=== PATIENT | male | born 1955 | race Caucasian/White ===

== ENCOUNTER 2017-07-14 18:00 | Day surgery (SDC) | payer MEDICAID ==
[2017-07-14] MEDS ORDERED: Sodium Chloride 0.9% 10 ML Syringe FLUSH PRN (18:44)
[2017-07-14] MEDS ORDERED: Lactated Ringers 1,000 ML IV SCH (18:45)
[2017-07-14] MEDS ORDERED: LORazepam 2 MG/ML MDV IVPUSH ONE (18:45)
[2017-07-14] MEDS ORDERED: Glucagon,Human Recombinant 1 MG Vial IVPUSH ONE (18:45)
--- NOTE | 2017-07-14 18:47 | EDM.PDOC ---
ED HPI GENERAL MEDICAL PROBLEM - General Chief Complaint: General Stated Complaint: FOOD STUCK IN ESOPHAGUS Time Seen by Provider: 07/14/17 18:37 Source of Information: Reports: Patient History Limitations: Reports: No Limitations - History of Present Illness INITIAL COMMENTS - FREE TEXT/NARRATIVE: The patient presents because he may have food stuck in his esophagus. 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 He ate some cold cereal and went to bed. This morning he woke up and tried to eat and it came right back up. He cannot eat anything. Small sips of water seam to stay down but anything more comes right back up. This has never happened before. He has no chest pain. He feels pressure in the epigastric region when he tries to eat. He has no fever, chills or cough. He has no diarrhea or urinary complaints. Onset: Sudden Duration: Hour(s): (This morning when he woke up) Location: Reports: Abdomen (Epigastric) Quality: Reports: Pressure Severity: Mild Improves with: Reports: Other (When he vomits to food) Worsens with: Reports: None Context: Reports: Other (He woke up with it) Middle Abdominal Pain Score (Numeric/FACES): 2 - Related Data Allergies Allergy/AdvReac Type Severity Reaction Status Date / Time No Known Allergies Allergy Verified 07/14/17 18:37 Home Meds: Home Meds Aspirin 81 mg PO DAILY #30 tab.chew 10/17/15 [Rx] Past Medical History - Past Health History Medical/Surgical History: Denies Medical/Surgical History Other Musculoskeletal History: Left foot fracture Neurological History: Reports: CVA Other Dermatologic History: skin Ca type unknown. Surgically removed - Past Surgical History Other Oncologic Surgeries/Procedures: surgical removed of skin Ca. Social & Family History - Family History Family Medical History: Noncontributory - Tobacco Use Smoking Status *Q: Never Smoker Second Hand Smoke Exposure: No - Recreational Drug Use Recreational Drug Use: No ED ROS GENERAL - Review of Systems Review Of Systems: See Below Constitutional: Reports: No Symptoms HEENT: Reports: No Symptoms Respiratory: Reports: No Symptoms Cardiovascular: Reports: No Symptoms Endocrine: Reports: No Symptoms GI/Abdominal: Reports: Abdominal Pain (Pressure in the epigastric region when he tries to eat or drink) : Reports: No Symptoms Musculoskeletal: Reports: No Symptoms ED EXAM, GENERAL - Physical Exam Exam: See Below Exam Limited By: No Limitations General Appearance: Alert, No Apparent Distress Ears: Normal External Exam Nose: Normal Inspection Head: Atraumatic Neck: Normal Inspection Respiratory/Chest: No Respiratory Distress, Lungs Clear, Normal Breath Sounds Cardiovascular: Regular Rate, Rhythm, No Edema, No Murmur GI/Abdominal: Soft, Non-Tender, No Organomegaly, No Mass Back Exam: Normal Inspection Extremities: Normal Inspection Neurological: Alert, Oriented, No Motor/Sensory Deficits Course - Vital Signs Last Recorded V/S: Last Vital Signs Temp 98.0 F 07/14/17 18:34 Pulse 57 L 07/14/17 18:34 Resp 18 07/14/17 18:34 BP 143/81 H 07/14/17 18:34 Pulse Ox 95 07/14/17 18:34 - Orders/Labs/Meds Orders: Active Orders 24 hr Category Date Time Status Peripheral IV Care [RC] . DIRECTED Care 07/14/17 18:45 Active Lactated Ringers [Ringers, Lactated] 1,000 ml Med 07/14/17 18:45 Active IV ASDIRECTED Sodium Chloride 0.9% [Saline Flush] Med 07/14/17 18:44 Active 10 ml FLUSH ASDIRECTED PRN Peripheral IV Insertion Adult [OM.PC] Routine Oth 07/14/17 18:44 Ordered Medication Orders Lactated Ringer's (Ringers, Lactated) 1,000 mls @ 150 mls/hr IV ASDIRECTED BRITTANY Last Admin: 07/14/17 19:11 Dose: 150 mls/hr Sodium Chloride (Saline Flush) 10 ml FLUSH ASDIRECTED PRN PRN Reason: Keep Vein Open Last Admin: 07/14/17 19:13 Dose: 10 ml Meds: Medications Generic Name Dose Route Start Last Admin Trade Name Freq PRN Reason Stop Dose Admin Lactated Ringer's 1,000 mls @ 150 mls/hr 07/14/17 18:45 07/14/17 19:11 Ringers, Lactated IV 150 mls/hr ASDIRECTED BRITTANY Administration Sodium Chloride 10 ml 07/14/17 18:44 07/14/17 19:13 Saline Flush FLUSH 10 ml ASDIRECTED PRN Administration Keep Vein Open Discontinued Medications Generic Name Dose Route Start Last Admin Trade Name Freq PRN Reason Stop Dose Admin Glucagon 1 mg 08/19/17 18:45 07/14/17 19:11 Glucagen IVPUSH 07/14/17 18:46 1 mg ONETIME ONE Administration Lorazepam 1 mg 07/14/17 18:45 07/14/17 19:09 Ativan IVPUSH 07/14/17 18:46 1 mg ONETIME ONE Administration - Re-Assessments/Exams Free Text/Narrative Re-Assessment/Exam: 07/14/17 18:52 I ordered an IV LR at 125mL/hr, glucagon 1mg IV, and ativan 1mg IV. 07/14/17 20:00 That did not help. He cannot swallow any water. I called Dr Daniels and he asked if the patient had reflux. I went back and asked him and he says at times he does have some heart burn and it was worse lately. He will come see him and do an EGD. Departure - Departure Time of Disposition: 20:05 Disposition: DC/Tfer to [facility] Condition: Good Clinical Impression: Esophageal stricture - Discharge Information Forms: ED Department Discharge - My Orders Last 24 Hours: My Active Orders 07/14/17 18:44 Sodium Chloride 0.9% [Saline Flush] 10 ml FLUSH ASDIRECTED PRN Peripheral IV Insertion Adult [OM.PC] Routine 07/14/17 18:45 Peripheral IV Care [RC] . DIRECTED Lactated Ringers [Ringers, Lactated] 1,000 ml IV ASDIRECTED - Assessment/Plan Last 24 Hours: My Active Orders 07/14/17 18:44 Sodium Chloride 0.9% [Saline Flush] 10 ml FLUSH ASDIRECTED PRN Peripheral IV Insertion Adult [OM.PC] Routine 07/14/17 18:45 Peripheral IV Care [RC] . DIRECTED Lactated Ringers [Ringers, Lactated] 1,000 ml IV ASDIRECTED
--- NOTE | 2017-07-14 20:10 | PCM.PREANE ---
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.) Other: Reports: None - Physical Assessment NPO Status Date: 07/14/17 NPO Status Time: 05:30 Pulse: 57 O2 Sat by Pulse Oximetry: 95 Respiratory Rate: 18 Blood Pressure: 143/81 Temperature: 36.7 C Vital Signs: Last Vital Signs Temp 36.7 C 07/14/17 18:34 Pulse 57 L 07/14/17 18:34 Resp 18 07/14/17 18:34 BP 143/81 H 07/14/17 18:34 Pulse Ox 95 07/14/17 18:34 Height: 1.92 m Weight: 111.13 kg ASA Class: 2E Mental Status: Alert & Oriented x3 Airway Class: Mallampati = 2 Dentition: Reports: Normal Dentition, Caries Thyro-Mental Finger Breadths: 3 Mouth Opening Finger Breadths: 3 ROM/Head Extension: Full Lungs: Clear to Auscultation, Normal Respiratory Effort Cardiovascular: Regular Rate, Regular Rhythm, No Murmurs - Allergies Allergies/Adverse Reactions: Allergies Allergy/AdvReac Type Severity Reaction Status Date / Time No Known Allergies Allergy Verified 07/14/17 18:37 - Anesthesia Plan Pre-Op Medication Ordered: None - Acknowledgements Anesthesia Type Planned: General Anesthesia Pt an Appropriate Candidate for the Planned Anesthesia: Yes Alternatives and Risks of Anesthesia Discussed w Pt/Guardian: Yes Pt/Guardian Understands and Agrees with Anesthesia Plan: Yes PreAnesthesia Questionnaire - Past Health History Medical/Surgical History: Denies Medical/Surgical History Other Musculoskeletal History: Left foot fracture Neurological History: Reports: CVA Other Dermatologic History: skin Ca type unknown. Surgically removed - Past Surgical History Other Oncologic Surgeries/Procedures: surgical removed of skin Ca. - SUBSTANCE USE Smoking Status *Q: Never Smoker Tobacco Use Within Last Twelve Months: No Second Hand Smoke Exposure: No Recreational Drug Use History: No - HOME MEDS Home Medications: Home Meds Aspirin 81 mg PO DAILY #30 tab.chew 10/17/15 [Rx] - CURRENT (IN HOUSE) MEDS Current Meds: Current Medications Lactated Ringer's (Ringers, Lactated) 1,000 mls @ 150 mls/hr IV ASDIRECTED BRITTANY Last Admin: 07/14/17 19:11 Dose: 150 mls/hr Sodium Chloride (Saline Flush) 10 ml FLUSH ASDIRECTED PRN PRN Reason: Keep Vein Open Last Admin: 07/14/17 19:13 Dose: 10 ml Discontinued Medications Glucagon (Glucagen) 1 mg IVPUSH ONETIME ONE Stop: 07/14/17 18:46 Last Admin: 07/14/17 19:11 Dose: 1 mg Lorazepam (Ativan) 1 mg IVPUSH ONETIME ONE Stop: 07/14/17 18:46 Last Admin: 07/14/17 19:09 Dose: 1 mg
[2017-07-14] MEDS ORDERED: Succinylcholine 200 MG/10 ML MDV ONE (20:42)
[2017-07-14] MEDS ORDERED: Lidocaine 1% 4 ML ONE (20:42)
[2017-07-14] MEDS ORDERED: fentaNYL 100 MCG/2 ML SDV ONE (20:42)
[2017-07-14] MEDS ORDERED: Propofol 200 MG/20 ML SDV ONE ×2 (20:42→21:14)
[2017-07-14] MEDS ORDERED: Ondansetron 4 MG/2 ML SDV ONE (20:42)
[2017-07-14] MEDS ORDERED: Midazolam 1 MG/ML 2 ML SDV ONE (20:43)
[2017-07-14] MEDS ORDERED: Ondansetron 4 MG/2 ML SDV IVPUSH PRN (21:07)
[2017-07-14] MEDS ORDERED: fentaNYL 100 MCG/2 ML SDV IVPUSH PRN (21:07)
[2017-07-14] MEDS ORDERED: HYDROmorphone 0.5 MG/0.5 ML Syringe IVPUSH PRN (21:07)
[2017-07-14] MEDS ORDERED: Lactated Ringers 1,000 ML ONE (21:20)
--- NOTE | 2017-07-14 21:21 | PCM.OPNOTE ---
- General Post-Op/Procedure Note Date of Surgery/Procedure: 07/14/17 Operative Procedure(s): EGD with bx and balloon dilitation to 45 F of distal esophagus Pre Op Diagnosis: dysphagia Post-Op Diagnosis: Same Anesthesia Technique: General ET Tube Primary Surgeon: Harley Daniels EBL in mLs: 0 Complications: None Condition: Good
--- NOTE | 2017-07-14 21:35 | PCM.POSTAN ---
POST ANESTHESIA ASSESSMENT - MENTAL STATUS Mental Status: Alert - VITAL SIGNS Pulse Rate: 49 SaO2: 97 Resp Rate: 16 Blood Pressure: 107/72 Temperature: 36.5 C - RESPIRATORY Respiratory Status: Respiratory Rate WNL, Airway Patent, O2 Saturation Stable, Supplemental Oxygen - CARDIOVASCULAR CV Status: Pulse Rate WNL, Blood Pressure Stable - GASTROINTESTINAL GI Status: No Symptoms - POST OP HYDRATION Hydration Status: Adequate & Stable
--- NOTE | 2017-07-14 21:44 | PCM48HPAN ---
Post Anesthesia Note - EVALUATION WITHIN 48HRS OF ANESTHETIC Vital Signs in Normal Range: Yes Patient Participated in Evaluation: Yes Respiratory Function Stable: Yes Airway Patent: Yes Cardiovascular Function Stable: Yes Hydration Status Stable: Yes Pain Control Satisfactory: Yes Nausea and Vomiting Control Satisfactory: Yes Mental Status Recovered: Yes
--- NOTE | 2017-07-14 22:38 | HP ---
DATE OF ADMISSION: 07/14/2017 HISTORY OF PRESENT ILLNESS: This is a 62-year-old male in good health who comes in with dysphagia. It started this morning about 5:30 after eating shredded wheat. He tried to eat again at noontime, some cooking, but it came up. He came into the clinic, they gave him some water to drink and it came up. He states that the night before he had cereal. He does not have any gastroesophageal reflux disease. He has not had dysphagia in the past. He has had no weight loss. He has no heartburn or pain. PAST MEDICAL HISTORY: Good health. CURRENT MEDICATIONS: Vitamins. ALLERGIES: None. FAMILY HISTORY: Negative for esophageal problems. REVIEW OF SYSTEMS: No chest pain, shortness of breath, cough, hoarseness, wheezing, fainting, weakness, numbness, or convulsions. PHYSICAL EXAMINATION: GENERAL: Reveals alert, cooperative male. VITAL SIGNS: Stable. EYES, EARS, NOSE, AND THROAT: Unremarkable. NECK: Supple. LUNGS: Clear. HEART: Tones regular rate. ABDOMEN: Soft. ASSESSMENT: Dysphagia. PLAN: Plan for EGD. Discussed the procedure, risks, and complications. He understands and consents. IRVING /[id number]
[2017-07-14 23:04] VITALS: BP 115/72
--- NOTE | 2017-07-16 09:24 | OR ---
DATE OF OPERATION: 07/14/2017 SURGEON: Harley Daniels MD PREOPERATIVE DIAGNOSIS: Dysphagia. POSTOPERATIVE DIAGNOSIS: Dysphagia. OPERATION PERFORMED: Esophagogastroduodenoscopy with biopsy of the antrum and balloon dilatation to 45-Brazilian of the distal esophagus. ANESTHESIA: General anesthetic. FINDINGS: There were some erythema in the GE junction with a mild hiatal hernia with GE junction located at about 40 to 41 cm from the incisor. Antrum showed some petechiae hemorrhage, which was biopsied, and the mucosa of the antrum was flat suggesting chronic gastritis. Second portion of the duodenum and the proximal esophagus showed few patches of gastric mucosa. The second portion of the duodenum, duodenal bulb, and pyloric channel was normal as was the body, fundus, and cardia. DESCRIPTION OF PROCEDURE: The patient taken to the endoscopy room, placed in a supine position, connected to monitoring equipment given a general anesthetic and intubated. The patient placed in the left lateral position. A video Olympus gastroscope placed in the posterior pharynx under direct vision, threaded carefully past the cricopharyngeus, down the esophagus, into the stomach. The stomach was insufflated and the scope passed through the pylorus to the second portion of the duodenum. Second portion of the duodenum, duodenal bulb, and pyloric channel were unremarkable. The antrum showed areas of petechiae, which were biopsied. The body and cardia of the stomach were free of this; however, the mucosa looked flattened suggesting chronic gastritis. J-maneuver showed a small hiatal hernia, some mild incompetent hiatus. The scope was withdrawn to the GE junction, which showed some inflammation. There is decreased peristalsis. There was some edema and erythema around the GE junction, but did not appreciate any active ulceration. The balloon was placed down the scope and the GE junction was dilated up to 45-Brazilian without problem. The scope was then slowly withdrawn showing the remaining portion of the esophagus with the proximal portion demonstrating some patches of gastric mucosa. The patient tolerated the procedure. The patient will be treated with proton pump inhibitors, pureed diet, and follow up in the clinic. ESTIMATED BLOOD LOSS: MMODAL /[id number]
== END 2017-07-14 22:46 | disposition home or self-care (01) ==
LOC: JD.ED 18:00 → JD.SDS 20:04
PROVIDERS: ATTEND Surgery
DX: K44.9 Diaphragmatic hernia without obstruction or gangrene (principal); Z86.73 Personal history of transient ischemic attack (TIA), and cerebral infarction without residual deficits; Z85.828 Personal history of other malignant neoplasm of skin; Z79.82 Long term (current) use of aspirin; Z79.899 Other long term (current) drug therapy; Z98.890 Other specified postprocedural states
CPT/HCPCS: 43239; 43248; 96361; 96374; 96375; 99284; J0330; J1610; J2060; J2250; J2405; J3010; J7050; J7120; 00740; 99285; J2704

== ENCOUNTER 2018-01-19 13:48 | Observation (INO) | payer BC, MEDICAID ==
[2018-01-19] MEDS ORDERED: Ondansetron 4 MG/2 ML SDV IVPUSH ONE (14:49)
[2018-01-19] MEDS ORDERED: Morphine 4 MG/ML Syringe IVPUSH ONE ×2 (14:49→18:52)
[2018-01-19] MEDS ORDERED: Sodium Chloride 0.9% 1,000 ML IV ONE (14:49)
[2018-01-19] MEDS ORDERED: Sodium Chloride 0.9% 10 ML Syringe FLUSH PRN (14:51)
--- NOTE | 2018-01-19 15:00 | EDM.PDOC ---
ED HPI GENERAL MEDICAL PROBLEM - General Chief Complaint: Abdominal Pain Stated Complaint: ABDOMINAL PAIN Time Seen by Provider: 01/19/18 14:52 Source of Information: Reports: Patient History Limitations: Reports: No Limitations - History of Present Illness INITIAL COMMENTS - FREE TEXT/NARRATIVE: 62-year-old male presents for evaluation and treatment of upper abdominal pain. Patient reports he has been feeling ill for the last 2 weeks. Reports associated symptoms of belching. States he's had one or 2 episodes of diarrhea per day. No blood appreciated in the stool. No fevers, nausea or vomiting. Identifies the area of pain across his upper abdomen. Rates the pain as an 8 out of 10. Patient reports the pain goes through him into his back. Patient reports that he was seen at the [facility] on Sunday. He had labs and a CT done. He was put on ciprofloxacin and Flagyl for a "stomach infection ". Since starting these antibiotics he has felt worse. Patient became concerned today when he ate a cheese stick for lunch. He states that this caused significant abdominal pain and therefore decided to present to the ER. Review of the patient's records show that he had an upper endoscopy following a impacted food bolus in June. No additional abnormalities were found. Patient has never had a colonoscopy. Past medical history is remarkable for a TIA 3 years ago. He is on a baby aspirin daily for this. Primary care providers Dr. Esteban. Duration: Week(s): (2) Middle Abdomen Pain Score (Numeric/FACES): 8 - Related Data Allergies Allergy/AdvReac Type Severity Reaction Status Date / Time No Known Allergies Allergy Verified 01/19/18 21:56 Home Meds: Home Meds Pantoprazole Sodium [Protonix] 40 mg PO BID #60 tablet. 01/21/18 [Rx] Past Medical History - Past Health History Medical/Surgical History: Denies Medical/Surgical History Other Musculoskeletal History: Left foot fracture Neurological History: Reports: CVA Other Dermatologic History: skin Ca type unknown. Surgically removed - Past Surgical History Other Oncologic Surgeries/Procedures: surgical removed of skin Ca. Social & Family History - Family History Family Medical History: Noncontributory - Tobacco Use Smoking Status *Q: Never Smoker Second Hand Smoke Exposure: No - Caffeine Use Caffeine Use: Reports: Soda - Recreational Drug Use Recreational Drug Use: No ED ROS GENERAL - Review of Systems Review Of Systems: See Below Constitutional: Reports: Fatigue (unable to sleep due to pain), Decreased Appetite. Denies: Fever, Chills Respiratory: Denies: Shortness of Breath Cardiovascular: Denies: Chest Pain GI/Abdominal: Reports: Abdominal Pain (across the upper abdomen and into the back), Decreased Appetite, Other (increased belching). Denies: Diarrhea, Hematochezia, Melena, Nausea, Vomiting ED EXAM, GI/ABD - Physical Exam Exam: See Below Exam Limited By: No Limitations General Appearance: Alert, WD/WN, No Apparent Distress Throat/Mouth: Normal Inspection, Normal Lips, Normal Voice, No Airway Compromise Respiratory/Chest: No Respiratory Distress, Lungs Clear, Normal Breath Sounds Cardiovascular: Normal Peripheral Pulses, No Murmur, Bradycardia GI/Abdominal Exam: Normal Bowel Sounds, Soft, Guarding, Rebound, Tender ( epigastric and RUQ). No: Distended, Rigid Neurological: Alert, Oriented, Normal Cognition Psychiatric: Normal Affect, Normal Mood Skin Exam: Warm, Dry, Normal Color EKG INTERPRETATION EKG Date: 01/19/18 Time: 15:45 Rhythm: NSR Rate (Beats/Min): 50 [place]: Normal P-Wave: Present QRS: Normal ST-T: Normal QT: Normal EKG Interpretation Comments: NSR at 50 bpm. No acute changes. Reviewed by myself and Dr. Peguero. Course - Vital Signs Last Recorded V/S: Last Vital Signs Temp 36.7 C 01/21/18 10:17 Pulse 49 L 01/21/18 11:32 Resp 17 01/21/18 10:17 BP 117/71 01/21/18 11:32 Pulse Ox 94 L 01/21/18 11:32 - Orders/Labs/Meds Labs: Laboratory Tests 01/19/18 01/19/18 01/19/18 Range/Units 14:49 15:01 15:01 WBC 9.17 H (4.23-9.07) K/mm3 RBC 5.00 (4.63-6.08) M/mm3 Hgb 15.1 (13.7-17.5) gm/L Hct 45.4 (40.1-51.0) % MCV 90.8 (79.0-92.2) fl MCH 30.2 (25.7-32.2) pg MCHC 33.3 (32.2-35.5) g/dl RDW Std Deviation 43.5 (35.1-43.9) fL Plt Count 224 (163-337) K/mm3 MPV 10.0 (9.4-12.3) fl Neutrophils % (Manual) 69 H (40-60) % Band Neutrophils % 0 (0-10) % Lymphocytes % (Manual) 24 (20-40) % Atypical Lymphs % 0 % Monocytes % (Manual) 3 (2-10) % Eosinophils % (Manual) 2 (0.8-7.0) % Basophils % (Manual) 2 H (0.2-1.2) Platelet Estimate Adequate RBC Morph Comment Normal Sodium 140 (136-145) mEq/L Potassium 4.3 (3.5-5.1) mEq/L Chloride 106 (98-107) mEq/L Carbon Dioxide 21 (21-32) mEq/L Anion Gap 17.3 H (5-15) BUN 16 (7-18) mg/dL Creatinine 1.0 (0.7-1.3) mg/dL Est Cr Clr Drug Dosing 91.54 mL/min Estimated GFR (MDRD) > 60 (>60) mL/min BUN/Creatinine Ratio 16.0 (14-18) Glucose 104 (80-115) mg/dL Calcium 9.1 (8.5-10.1) mg/dL Total Bilirubin 0.9 (0.2-1.0) mg/dL GGT 122 H (15-85) U/L AST 34 (15-37) U/L ALT 30 (16-63) U/L Alkaline Phosphatase 105 (46-116) U/L Troponin I (0.00-0.056) ng/mL C-Reactive Protein < 0.2 (<1.0) mg/dL Total Protein 7.4 (6.4-8.2) g/dl Albumin 3.4 (3.4-5.0) g/dl Globulin 4.0 gm/dL Albumin/Globulin Ratio 0.9 L (1-2) Lipase 144 (73-393) U/L Urine Color Yellow (Yellow) Urine Appearance Clear (Clear) Urine pH 5.5 (5.0-8.0) Ur Specific [place] > or = 1.030 (1.005-1.030) Urine Protein Negative (Negative) Urine Glucose (UA) Negative (Negative) Urine Ketones Negative (Negative) Urine Occult Blood Negative (Negative) Urine Nitrite Negative (Negative) Urine Bilirubin Negative (Negative) Urine Urobilinogen 0.2 (0.2-1.0) Ur Leukocyte Esterase Trace H (Negative) Urine RBC 0-5 (0-5) /hpf Urine WBC 0-5 (0-5) /hpf Ur Epithelial Cells 0-5 (0-5) /hpf Urine Bacteria Rare (FEW) /hpf Urine Mucus Not seen (FEW) /hpf 01/19/18 Range/Units 15:01 WBC (4.23-9.07) K/mm3 RBC (4.63-6.08) M/mm3 Hgb (13.7-17.5) gm/L Hct (40.1-51.0) % MCV (79.0-92.2) fl MCH (25.7-32.2) pg MCHC (32.2-35.5) g/dl RDW Std Deviation (35.1-43.9) fL Plt Count (163-337) K/mm3 MPV (9.4-12.3) fl Neutrophils % (Manual) (40-60) % Band Neutrophils % (0-10) % Lymphocytes % (Manual) (20-40) % Atypical Lymphs % % Monocytes % (Manual) (2-10) % Eosinophils % (Manual) (0.8-7.0) % Basophils % (Manual) (0.2-1.2) Platelet Estimate RBC Morph Comment Sodium (136-145) mEq/L Potassium (3.5-5.1) mEq/L Chloride (98-107) mEq/L Carbon Dioxide (21-32) mEq/L Anion Gap (5-15) BUN (7-18) mg/dL Creatinine (0.7-1.3) mg/dL Est Cr Clr Drug Dosing mL/min Estimated GFR (MDRD) (>60) mL/min BUN/Creatinine Ratio (14-18) Glucose (80-115) mg/dL Calcium (8.5-10.1) mg/dL Total Bilirubin (0.2-1.0) mg/dL GGT (15-85) U/L AST (15-37) U/L ALT (16-63) U/L Alkaline Phosphatase (46-116) U/L Troponin I < 0.017 (0.00-0.056) ng/mL C-Reactive Protein (<1.0) mg/dL Total Protein (6.4-8.2) g/dl Albumin (3.4-5.0) g/dl Globulin gm/dL Albumin/Globulin Ratio (1-2) Lipase (73-393) U/L Urine Color (Yellow) Urine Appearance (Clear) Urine pH (5.0-8.0) Ur Specific [place] (1.005-1.030) Urine Protein (Negative) Urine Glucose (UA) (Negative) Urine Ketones (Negative) Urine Occult Blood (Negative) Urine Nitrite (Negative) Urine Bilirubin (Negative) Urine Urobilinogen (0.2-1.0) Ur Leukocyte Esterase (Negative) Urine RBC (0-5) /hpf Urine WBC (0-5) /hpf Ur Epithelial Cells (0-5) /hpf Urine Bacteria (FEW) /hpf Urine Mucus (FEW) /hpf Meds: Medications Discontinued Medications Generic Name Dose Route Start Last Admin Trade Name Tyroneq PRN Reason Stop Dose Admin Acetaminophen 650 mg 01/20/18 09:41 01/20/18 10:49 Tylenol PO 650 mg Q4H PRN Administration Pain/Fever Al Hydroxide/Mg Hydroxide 30 ml 01/19/18 20:57 01/20/18 18:11 Mag-Al Plus PO 30 ml QID PRN Administration Abdominal Pain Al Hydroxide/Mg Hydroxide 30 0 ml 01/19/18 20:01 01/19/18 20:06 ml/ Lidocaine HCl 15 ml PO 01/19/18 20:02 45 ml ONETIME ONE Administration Famotidine 20 mg 01/19/18 19:51 01/19/18 20:01 Pepcid IVPUSH 01/19/18 19:52 20 mg ONETIME ONE Administration Fentanyl Confirm 01/21/18 08:55 Sublimaze Administered 01/21/18 08:56 Dose 100 mcg .ROUTE .STK-MED ONE Hydromorphone HCl 1 mg 01/19/18 20:55 Dilaudid IVPUSH Q4H PRN Pain Sodium Chloride 1,000 mls @ 999 mls/hr 01/19/18 14:49 01/19/18 15:30 Normal Saline IV 01/19/18 15:49 999 mls/hr ONETIME ONE Administration Sodium Chloride 1,000 mls @ 100 mls/hr 01/19/18 20:00 01/19/18 20:00 Normal Saline IV 100 mls/hr ASDIRECTED BRITTANY Administration Lactated Ringer's 1,000 mls @ 75 mls/hr 01/19/18 21:00 01/19/18 22:26 Ringers, Lactated IV 75 mls/hr ASDIRECTED BRITT[facility] Administration Lactated Ringer's 1,000 mls @ 50 mls/hr 01/20/18 09:45 01/21/18 06:25 Ringers, Lactated IV 50 mls/hr ASDIRECTED BRITTANY Administration Midazolam HCl Confirm 01/21/18 08:55 Versed 1 Mg/Ml Administered 01/21/18 08:56 Dose 2 mg .ROUTE .STK-MED ONE Morphine Sulfate 4 mg 01/19/18 14:49 01/19/18 15:34 Morphine IVPUSH 01/19/18 14:50 4 mg ONETIME ONE Administration Morphine Sulfate 4 mg 01/19/18 18:52 01/19/18 18:57 Morphine IVPUSH 01/19/18 18:53 4 mg ONETIME ONE Administration Ondansetron HCl 4 mg 01/19/18 14:49 01/19/18 15:32 Zofran IVPUSH 01/19/18 14:50 4 mg ONETIME ONE Administration Ondansetron HCl 4 mg 01/19/18 20:56 Zofran IVPUSH Q8H PRN Nausea Pantoprazole Sodium 40 mg 01/19/18 21:00 01/21/18 08:11 Protonix Iv IVPUSH 40 mg Q12H BRITTANY Administration Propofol Confirm 01/21/18 08:55 Diprivan 20 Ml Administered 01/21/18 08:56 Dose 200 mg .ROUTE .STK-MED ONE Propofol Confirm 01/21/18 09:15 Diprivan 20 Ml Administered 01/21/18 09:16 Dose 200 mg .ROUTE .STK-MED ONE Sodium Chloride 10 ml 01/19/18 14:51 01/19/18 15:34 Saline Flush FLUSH 10 ml ASDIRECTED PRN Administration Keep Vein Open - Radiology Interpretation Free Text/Narrative:: Limited abdominal ultrasound: Multiple real-time images of the upper right abdomen were obtained. Comparison: No prior abdominal ultrasound. Liver is somewhat echogenic as compared to the kidney most likely representing fatty infiltration. Gallbladder shows no shadowing gallstones. Very minimal sludge is seen which is felt to be incidental. No gallbladder wall thickening or biliary duct dilatation is seen. Right kidney shows a small cortical scar. Right kidney shows no hydronephrosis. No shadowing calculi are seen within the right kidney. Pancreas is incompletely seen. Visualized portions of the pancreas are within normal limits. Inferior vena cava is patent. Portal vein shows normal hepatopedal flow. Impression: 1. Fatty infiltration within the liver. 2. Minimal sludge which is felt to be incidental within the gallbladder. No other biliary abnormality is seen. 3. Small cortical scar within the right kidney. - Re-Assessments/Exams Free Text/Narrative Re-Assessment/Exam: 01/19/18 20:45 We were able to obtain records from [facility]. CT report showed diverticulosis without any diverticulitis. Diagnosis was abdominal pain. Treatment cipro and flagyl. I reviewed the labs and imaging with the patient. He has only had a cheese stick to eat today. Pain responded well to the morphine. We gave him some crackers to eat and this immediately worsened the pain. Case discussed with Dr. Peguero. Recommended a GI cocktail and if the patient continues to have pain consult with Dr. Daniels for admission. Pain improved with second dose of morphin and GI cocktail. He now identifies the pain in the RUQ. Diagnosis cholecysitis vs. gastritis. Case discussed with Dr. Daniels, he has come and seen the patient. Feels this is PUD. Will admit the patient with a plan for a scope. Departure - Departure Time of Disposition: 20:55 Disposition: Admitted As Inpatient 66 Condition: Fair Clinical Impression: Peptic ulcer disease - Discharge Information
--- NOTE | 2018-01-19 17:54 | US ---
Limited abdominal ultrasound: Multiple real-time images of the upper right abdomen were obtained. Comparison: No prior abdominal ultrasound. Liver is somewhat echogenic as compared to the kidney most likely representing fatty infiltration. Gallbladder shows no shadowing gallstones. Very minimal sludge is seen which is felt to be incidental. No gallbladder wall thickening or biliary duct dilatation is seen. Right kidney shows a small cortical scar. Right kidney shows no hydronephrosis. No shadowing calculi are seen within the right kidney. Pancreas is incompletely seen. Visualized portions of the pancreas are within normal limits. Inferior vena cava is patent. Portal vein shows normal hepatopedal flow. Impression: 1. Fatty infiltration within the liver. 2. Minimal sludge which is felt to be incidental within the gallbladder. No other biliary abnormality is seen. 3. Small cortical scar within the right kidney. Diagnostic code #3
[2018-01-19] MEDS ORDERED: Famotidine 20 MG/2 ML SDV IVPUSH ONE (19:51)
[2018-01-19] MEDS ORDERED: Sodium Chloride 0.9% 1,000 ML IV SCH (20:00)
[2018-01-19] MEDS ORDERED: Alum Hydrox/Mag Hydrox/Simeth 30 ML, Lidocaine 2% 15 ML PO ONE ×2 (20:01)
[2018-01-19] MEDS ORDERED: HYDROmorphone 0.5 MG/0.5 ML SYRINGE IVPUSH PRN (20:55)
[2018-01-19] MEDS ORDERED: Ondansetron 4 MG/2 ML SDV IVPUSH PRN (20:56)
[2018-01-19] MEDS ORDERED: Lactated Ringers 1,000 ML IV SCH (21:00)
[2018-01-19] MEDS: Pantoprazole 40 MG Vial IVPUSH SCH (22:15)
--- NOTE | 2018-01-19 23:31 | HP ---
DATE OF ADMISSION: 01/19/2018 HISTORY OF PRESENT ILLNESS: This is a 62-year-old male who has abdominal pain, came into the emergency room, described the pain as quite severe and located across the upper midabdomen senior living between the umbilicus and the xiphoid and mostly on the right. The patient states that he has been having this pain for about a little over a week closer to 2 weeks. He was seen in [place] and worked up with a CT scan, which was normal and he started on antibiotics and Flagyl and Cipro. The patient describes the pain is quite severe, always there, the waxing and waning. Since starting the antibiotics almost about a week ago, the pain has not gotten better. It has been associated with a lot of belching and burping. No heartburn. He states at about 1 to 2 o'clock in the morning, it is quite severe and he gets up and takes Mylanta and it seems to improve, it seems to be worsened with food. An ultrasound was done here in the emergency room and showed possible mild sludge as he called. The patient has since been here, is more comfortable and after having the morphine. The patient in last June had a food bolus stuck in his throat and underwent upper GI endoscopy. He was placed on Prilosec and this has been weaned. He has not been on this medication since. Does have mild dysphagia to meats, especially when dry. REVIEW OF SYSTEMS: No chest pain, shortness of breath, cough, hoarseness, wheezing, fainting, weakness, numbness, or convulsions. FAMILY HISTORY: Negative. CURRENT MEDICATIONS: He does take Viagra, aspirin. Reportedly, he had a TIA in the past and he was recently placed on Flagyl and Cipro. PAST SURGICAL HISTORY: As stated above. SOCIAL HISTORY: He does not smoke, does not drink. He is single. PHYSICAL EXAMINATION: GENERAL: Reveals an alert, cooperative male. VITAL SIGNS: Stable, blood pressure in the normal range. EYES: Sclerae are white. Extraocular muscle motion is normal. Oral cavity: Healthy mucous membrane with mouth and tongue. NECK: Supple. No nodes. No thyromegaly. Trachea midline. LUNGS: Clear. No rales, rhonchi, fremitus, dullness. HEART: Heart tones are regular rate. No S3, S4, jugular venous distention, or murmurs. ABDOMEN: Shows tenderness over the duodenal area. No guarding, no rebound. Tenderness over the gallbladder is absent. EXTREMITIES: Upper and lower extremities: No angulation deformities. No sensorineural deficit. NEUROLOGIC: Cranial nerves III through XII intact. SKIN: Warm and dry. ASSESSMENT: Abdominal pain, possible peptic ulcer disease. PLAN: We will put him in the hospital for observation, IV antibiotics, pain medication, Mylanta, and IV proton pump inhibitors, and clear liquid diet. MMODAL /[id number]
[2018-01-20] MEDS ORDERED: Acetaminophen 325 MG Tab PO PRN (09:41)
[2018-01-20] MEDS: Pantoprazole 40 MG Vial IVPUSH SCH ×2 (10:46→20:15)
[2018-01-20] MEDS: Lactated Ringers 1,000 ML IV SCH (11:19)
[2018-01-20] MEDS: Aluminum Hydroxide/Magnesium Hydroxide/Simethicone Susp 30 ML Cup PO PRN ×2 (11:19→18:11)
--- NOTE | 2018-01-20 14:34 | PCM.PN ---
- General Info Date of Service: 01/20/18 Functional Status: Reports: Pain Controlled - Review of Systems General: Reports: No Symptoms Gastrointestinal: Reports: Abdominal Pain (one episode after taking in clear liquids but improved with mylanta) - Patient Data Vitals - Most Recent: Last Vital Signs Temp 97.9 F 01/20/18 13:14 Pulse 39 L 01/20/18 13:14 Resp 12 01/20/18 13:14 BP 118/68 01/20/18 13:14 Pulse Ox 93 L 01/20/18 13:14 Weight - Most Recent: 106.503 kg I&O - Last 24 Hours: Intake & Output 01/19/18 01/20/18 01/20/18 23:59 07:59 15:59 Intake Total 756 420 Output Total 500 Balance 256 420 Med Orders - Current: Current Medications Acetaminophen (Tylenol) 650 mg PO Q4H PRN PRN Reason: Pain/Fever Last Admin: 01/20/18 10:49 Dose: 650 mg Al Hydroxide/Mg Hydroxide (Mag-Al Plus) 30 ml PO QID PRN PRN Reason: Abdominal Pain Last Admin: 01/20/18 11:19 Dose: 30 ml Hydromorphone HCl (Dilaudid) 1 mg IVPUSH Q4H PRN PRN Reason: Pain Sodium Chloride (Normal Saline) 1,000 mls @ 100 mls/hr IV ASDIRECTED [facility] Last Admin: 01/19/18 20:00 Dose: 100 mls/hr Lactated Ringer's (Ringers, Lactated) 1,000 mls @ 50 mls/hr IV ASDIRECTED [facility] Last Admin: 01/20/18 11:19 Dose: 50 mls/hr Ondansetron HCl (Zofran) 4 mg IVPUSH Q8H PRN PRN Reason: Nausea Pantoprazole Sodium (Protonix Iv) 40 mg IVPUSH Q12H [facility] Last Admin: 01/20/18 10:46 Dose: 40 mg Discontinued Medications Al Hydroxide/Mg Hydroxide 30 (ml/ Lidocaine HCl 15 ml) 0 ml PO ONETIME ONE Stop: 01/19/18 20:02 Last Admin: 01/19/18 20:06 Dose: 45 ml Famotidine (Pepcid) 20 mg IVPUSH ONETIME ONE Stop: 01/19/18 19:52 Last Admin: 01/19/18 20:01 Dose: 20 mg Sodium Chloride (Normal Saline) 1,000 mls @ 999 mls/hr IV ONETIME ONE Stop: 01/19/18 15:49 Last Admin: 01/19/18 15:30 Dose: 999 mls/hr Lactated Ringer's (Ringers, Lactated) 1,000 mls @ 75 mls/hr IV ASDIRECTED [facility]ITTANY Last Admin: 01/19/18 22:26 Dose: 75 mls/hr Morphine Sulfate (Morphine) 4 mg IVPUSH ONETIME ONE Stop: 01/19/18 14:50 Last Admin: 01/19/18 15:34 Dose: 4 mg Morphine Sulfate (Morphine) 4 mg IVPUSH ONETIME ONE Stop: 01/19/18 18:53 Last Admin: 01/19/18 18:57 Dose: 4 mg Ondansetron HCl (Zofran) 4 mg IVPUSH ONETIME ONE Stop: 01/19/18 14:50 Last Admin: 01/19/18 15:32 Dose: 4 mg Sodium Chloride (Saline Flush) 10 ml FLUSH ASDIRECTED PRN PRN Reason: Keep Vein Open Last Admin: 01/19/18 15:34 Dose: 10 ml - Exam Lungs: Clear to Auscultation, Normal Respiratory Effort Cardiovascular: Regular Rate, Regular Rhythm GI/Abdominal Exam: Normal Bowel Sounds, Soft, Non-Tender, No Organomegaly, No Distention, No Abnormal Bruit, No Mass, Pelvis Stable - Problem List Review Problem List Initiated/Reviewed/Updated: Yes - My Orders Last 24 Hours: My Active Orders 01/19/18 20:53 Ambulate [RC] PER UNIT ROUTINE 01/19/18 20:55 HYDROmorphone [Dilaudid] 1 mg IVPUSH Q4H PRN 01/19/18 20:56 Ondansetron [Zofran] 4 mg IVPUSH Q8H PRN 01/19/18 20:57 Alum Hydrox/Mag Hydrox/Simeth [Mag-Al Plus] 30 ml PO QID PRN 01/19/18 21:00 Pantoprazole [ProTONIX IV] 40 mg IVPUSH Q12H 01/20/18 02:08 Code Status [Resuscitation Status] Routine 01/20/18 09:41 Acetaminophen [Tylenol] 650 mg PO Q4H PRN 01/20/18 09:45 Lactated Ringers [Ringers, Lactated] 1,000 ml IV ASDIRECTED 01/20/18 Breakfast Clear Liquid Diet [DIET] - Assessment Assessment:: abdominal pain is much better and tenderness has resolved in the abdomen ass improved plan will advance diet
--- NOTE | 2018-01-20 16:38 | PCM.PN ---
- Patient Data Vitals - Most Recent: Last Vital Signs Temp 97.9 F 01/20/18 13:14 Pulse 39 L 01/20/18 13:14 Resp 12 01/20/18 13:14 BP 118/68 01/20/18 13:14 Pulse Ox 93 L 01/20/18 13:14 Weight - Most Recent: 106.503 kg I&O - Last 24 Hours: Intake & Output 01/20/18 01/20/18 01/20/18 07:59 15:59 23:59 Intake Total 756 420 Output Total 500 Balance 256 420 Med Orders - Current: Current Medications Acetaminophen (Tylenol) 650 mg PO Q4H PRN PRN Reason: Pain/Fever Last Admin: 01/20/18 10:49 Dose: 650 mg Al Hydroxide/Mg Hydroxide (Mag-Al Plus) 30 ml PO QID PRN PRN Reason: Abdominal Pain Last Admin: 01/20/18 11:19 Dose: 30 ml Hydromorphone HCl (Dilaudid) 1 mg IVPUSH Q4H PRN PRN Reason: Pain Sodium Chloride (Normal Saline) 1,000 mls @ 100 mls/hr IV ASDIRECTED [facility] Last Admin: 01/19/18 20:00 Dose: 100 mls/hr Lactated Ringer's (Ringers, Lactated) 1,000 mls @ 50 mls/hr IV ASDIRECTED [facility] Last Admin: 01/20/18 11:19 Dose: 50 mls/hr Ondansetron HCl (Zofran) 4 mg IVPUSH Q8H PRN PRN Reason: Nausea Pantoprazole Sodium (Protonix Iv) 40 mg IVPUSH Q12H [facility] Last Admin: 01/20/18 10:46 Dose: 40 mg Discontinued Medications Al Hydroxide/Mg Hydroxide 30 (ml/ Lidocaine HCl 15 ml) 0 ml PO ONETIME ONE Stop: 01/19/18 20:02 Last Admin: 01/19/18 20:06 Dose: 45 ml Famotidine (Pepcid) 20 mg IVPUSH ONETIME ONE Stop: 01/19/18 19:52 Last Admin: 01/19/18 20:01 Dose: 20 mg Sodium Chloride (Normal Saline) 1,000 mls @ 999 mls/hr IV ONETIME ONE Stop: 01/19/18 15:49 Last Admin: 01/19/18 15:30 Dose: 999 mls/hr Lactated Ringer's (Ringers, Lactated) 1,000 mls @ 75 mls/hr IV ASDIRECTED [facility]ITTANY Last Admin: 01/19/18 22:26 Dose: 75 mls/hr Morphine Sulfate (Morphine) 4 mg IVPUSH ONETIME ONE Stop: 01/19/18 14:50 Last Admin: 01/19/18 15:34 Dose: 4 mg Morphine Sulfate (Morphine) 4 mg IVPUSH ONETIME ONE Stop: 01/19/18 18:53 Last Admin: 01/19/18 18:57 Dose: 4 mg Ondansetron HCl (Zofran) 4 mg IVPUSH ONETIME ONE Stop: 01/19/18 14:50 Last Admin: 01/19/18 15:32 Dose: 4 mg Sodium Chloride (Saline Flush) 10 ml FLUSH ASDIRECTED PRN PRN Reason: Keep Vein Open Last Admin: 01/19/18 15:34 Dose: 10 ml - Problem List Review Problem List Initiated/Reviewed/Updated: Yes - My Orders Last 24 Hours: My Active Orders 01/19/18 20:53 Ambulate [RC] PER UNIT ROUTINE 01/19/18 20:55 HYDROmorphone [Dilaudid] 1 mg IVPUSH Q4H PRN 01/19/18 20:56 Ondansetron [Zofran] 4 mg IVPUSH Q8H PRN 01/19/18 20:57 Alum Hydrox/Mag Hydrox/Simeth [Mag-Al Plus] 30 ml PO QID PRN 01/19/18 21:00 Pantoprazole [ProTONIX IV] 40 mg IVPUSH Q12H 01/20/18 02:08 Code Status [Resuscitation Status] Routine 01/20/18 09:41 Acetaminophen [Tylenol] 650 mg PO Q4H PRN 01/20/18 09:45 Lactated Ringers [Ringers, Lactated] 1,000 ml IV ASDIRECTED 01/20/18 16:36 Verify Patient Consent Obtain [RC] ASDIRECTED 01/20/18 Breakfast Clear Liquid Diet [DIET] 01/20/18 Dinner [place] Diet [DIET] Nothing per Oral After Midnight Diet [DIET] 01/21/18 08:00 Schedule Procedure [COMM] Routine - Assessment Assessment:: abdominal pain is much better and tenderness has resolved in the abdomen ass improved plan will advance diet plan EGD and esophageal dilitation discussed the risk and complications pt understand and consents
--- NOTE | 2018-01-20 18:33 | PCM.PREANE ---
Preanesthetic Assessment - Anesthesia/Transfusion/Family Hx Anesthesia History: Prior Anesthesia Without Reaction Family History of Anesthesia Reaction: No Transfusion History: No Prior Transfusion(s) Intubation History: Unknown - Review of Systems General: No Symptoms Pulmonary: No Symptoms Cardiovascular: No Symptoms Gastrointestinal: Abdominal Pain, Difficulty Swallowing Neurological: Tremors (Left hand. From Stroke in 2015. ) Other: Reports: None - Physical Assessment Pulse: 56 O2 Sat by Pulse Oximetry: 92 Respiratory Rate: 16 Blood Pressure: 124/63 Temperature: 36.5 C Vital Signs: Last Vital Signs Temp 36.5 C 01/20/18 16:50 Pulse 56 L 01/20/18 16:50 Resp 16 01/20/18 16:50 BP 124/63 01/20/18 16:50 Pulse Ox 92 L 01/20/18 16:50 Height: 1.91 m Weight: 106.503 kg ASA Class: 2 Mental Status: Alert & Oriented x3 Airway Class: Mallampati = 1 Dentition: Reports: Normal Dentition Thyro-Mental Finger Breadths: 3 Mouth Opening Finger Breadths: 3 ROM/Head Extension: Full Lungs: Clear to Auscultation, Normal Respiratory Effort Cardiovascular: Regular Rate, Regular Rhythm - Lab Values: Laboratory Last Values WBC 9.17 K/mm3 (4.23-9.07) H 01/19/18 15:01 RBC 5.00 M/mm3 (4.63-6.08) 01/19/18 15:01 Hgb 15.1 gm/L (13.7-17.5) 01/19/18 15:01 Hct 45.4 % (40.1-51.0) 01/19/18 15:01 MCV 90.8 fl (79.0-92.2) 01/19/18 15:01 MCH 30.2 pg (25.7-32.2) 01/19/18 15:01 MCHC 33.3 g/dl (32.2-35.5) 01/19/18 15:01 RDW Std Deviation 43.5 fL (35.1-43.9) 01/19/18 15:01 Plt Count 224 K/mm3 (163-337) 01/19/18 15:01 MPV 10.0 fl (9.4-12.3) 01/19/18 15:01 Neutrophils % (Manual) 69 % (40-60) H 01/19/18 15:01 Band Neutrophils % 0 % (0-10) 01/19/18 15:01 Lymphocytes % (Manual) 24 % (20-40) 01/19/18 15:01 Atypical Lymphs % 0 % 01/19/18 15:01 Monocytes % (Manual) 3 % (2-10) 01/19/18 15:01 Eosinophils % (Manual) 2 % (0.8-7.0) 01/19/18 15:01 Basophils % (Manual) 2 (0.2-1.2) H 01/19/18 15:01 Platelet Estimate Adequate 01/19/18 15:01 RBC Morph Comment Normal 01/19/18 15:01 Sodium 140 mEq/L (136-145) 01/19/18 15:01 Potassium 4.3 mEq/L (3.5-5.1) 01/19/18 15:01 Chloride 106 mEq/L (98-107) 01/19/18 15:01 Carbon Dioxide 21 mEq/L (21-32) 01/19/18 15:01 Anion Gap 17.3 (5-15) H 01/19/18 15:01 BUN 16 mg/dL (7-18) 01/19/18 15:01 Creatinine 1.0 mg/dL (0.7-1.3) 01/19/18 15:01 Est Cr Clr Drug Dosing 91.54 mL/min 01/19/18 15:01 Estimated GFR (MDRD) > 60 mL/min (>60) 01/19/18 15:01 BUN/Creatinine Ratio 16.0 (14-18) 01/19/18 15:01 Glucose 104 mg/dL (80-115) 01/19/18 15:01 Calcium 9.1 mg/dL (8.5-10.1) 01/19/18 15:01 Total Bilirubin 0.9 mg/dL (0.2-1.0) 01/19/18 15:01 GGT 122 U/L (15-85) H 01/19/18 15:01 AST 34 U/L (15-37) 01/19/18 15:01 ALT 30 U/L (16-63) 01/19/18 15:01 Alkaline Phosphatase 105 U/L (46-116) 01/19/18 15:01 Troponin I < 0.017 ng/mL (0.00-0.056) 01/19/18 15:01 C-Reactive Protein < 0.2 mg/dL (<1.0) 01/19/18 15:01 Total Protein 7.4 g/dl (6.4-8.2) 01/19/18 15:01 Albumin 3.4 g/dl (3.4-5.0) 01/19/18 15:01 Globulin 4.0 gm/dL 01/19/18 15:01 Albumin/Globulin Ratio 0.9 (1-2) L 01/19/18 15:01 Lipase 144 U/L (73-393) 01/19/18 15:01 Urine Color Yellow (Yellow) 01/19/18 14:49 Urine Appearance Clear (Clear) 01/19/18 14:49 Urine pH 5.5 (5.0-8.0) 01/19/18 14:49 Ur Specific Hanson > or = 1.030 (1.005-1.030) 01/19/18 14:49 Urine Protein Negative (Negative) 01/19/18 14:49 Urine Glucose (UA) Negative (Negative) 01/19/18 14:49 Urine Ketones Negative (Negative) 01/19/18 14:49 Urine Occult Blood Negative (Negative) 01/19/18 14:49 Urine Nitrite Negative (Negative) 01/19/18 14:49 Urine Bilirubin Negative (Negative) 01/19/18 14:49 Urine Urobilinogen 0.2 (0.2-1.0) 01/19/18 14:49 Ur Leukocyte Esterase Trace (Negative) H 01/19/18 14:49 Urine RBC 0-5 /hpf (0-5) 01/19/18 14:49 Urine WBC 0-5 /hpf (0-5) 01/19/18 14:49 Ur Epithelial Cells 0-5 /hpf (0-5) 01/19/18 14:49 Urine Bacteria Rare /hpf (FEW) 01/19/18 14:49 Urine Mucus Not seen /hpf (FEW) 01/19/18 14:49 - Allergies Allergies/Adverse Reactions: Allergies Allergy/AdvReac Type Severity Reaction Status Date / Time No Known Allergies Allergy Verified 01/19/18 21:56 - Acknowledgements Anesthesia Type Planned: MAC Pt an Appropriate Candidate for the Planned Anesthesia: Yes Alternatives and Risks of Anesthesia Discussed w Pt/Guardian: Yes Pt/Guardian Understands and Agrees with Anesthesia Plan: Yes PreAnesthesia Questionnaire - Past Health History Medical/Surgical History: Denies Medical/Surgical History HEENT History: Reports: Other (See Below) Other HEENT History: wears glasses Cardiovascular History: Reports: Syncope Other Cardiovascular History: 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 Surgically removed - Past Surgical History Other Oncologic Surgeries/Procedures: surgical removed of skin Ca. - SUBSTANCE USE Smoking Status *Q: Never Smoker Tobacco Use Within Last Twelve Months: Cigarettes Second Hand Smoke Exposure: No Recreational Drug Use History: No - HOME MEDS Home Medications: Home Meds Aspirin 81 mg PO DAILY #30 tab.chew 10/17/15 [Rx] Ciprofloxacin HCl [Cipro] 500 mg PO BID 01/19/18 [History] metroNIDAZOLE [Metronidazole] 500 mg PO TID 01/19/18 [History] - CURRENT (IN HOUSE) MEDS Current Meds: Current Medications Acetaminophen (Tylenol) 650 mg PO Q4H PRN PRN Reason: Pain/Fever Last Admin: 01/20/18 10:49 Dose: 650 mg Al Hydroxide/Mg Hydroxide (Mag-Al Plus) 30 ml PO QID PRN PRN Reason: Abdominal Pain Last Admin: 01/20/18 18:11 Dose: 30 ml Hydromorphone HCl (Dilaudid) 1 mg IVPUSH Q4H PRN PRN Reason: Pain Lactated Ringer's (Ringers, Lactated) 1,000 mls @ 50 mls/hr IV ASDIRECTED [facility] Last Admin: 01/20/18 11:19 Dose: 50 mls/hr Ondansetron HCl (Zofran) 4 mg IVPUSH Q8H PRN PRN Reason: Nausea Pantoprazole Sodium (Protonix Iv) 40 mg IVPUSH Q12H [facility] Last Admin: 01/20/18 10:46 Dose: 40 mg Discontinued Medications Al Hydroxide/Mg Hydroxide 30 (ml/ Lidocaine HCl 15 ml) 0 ml PO ONETIME ONE Stop: 01/19/18 20:02 Last Admin: 01/19/18 20:06 Dose: 45 ml Famotidine (Pepcid) 20 mg IVPUSH ONETIME ONE Stop: 01/19/18 19:52 Last Admin: 01/19/18 20:01 Dose: 20 mg Sodium Chloride (Normal Saline) 1,000 mls @ 999 mls/hr IV ONETIME ONE Stop: 01/19/18 15:49 Last Admin: 01/19/18 15:30 Dose: 999 mls/hr Sodium Chloride (Normal Saline) 1,000 mls @ 100 mls/hr IV ASDIRECTED [facility] Last Admin: 01/19/18 20:00 Dose: 100 mls/hr Lactated Ringer's (Ringers, Lactated) 1,000 mls @ 75 mls/hr IV ASDIRECTED [facility] Last Admin: 01/19/18 22:26 Dose: 75 mls/hr Morphine Sulfate (Morphine) 4 mg IVPUSH ONETIME ONE Stop: 01/19/18 14:50 Last Admin: 01/19/18 15:34 Dose: 4 mg Morphine Sulfate (Morphine) 4 mg IVPUSH ONETIME ONE Stop: 01/19/18 18:53 Last Admin: 01/19/18 18:57 Dose: 4 mg Ondansetron HCl (Zofran) 4 mg IVPUSH ONETIME ONE Stop: 01/19/18 14:50 Last Admin: 01/19/18 15:32 Dose: 4 mg Sodium Chloride (Saline Flush) 10 ml FLUSH ASDIRECTED PRN PRN Reason: Keep Vein Open Last Admin: 01/19/18 15:34 Dose: 10 ml
[2018-01-21] MEDS: Lactated Ringers 1,000 ML IV SCH (06:25)
[2018-01-21] MEDS: Pantoprazole 40 MG Vial IVPUSH SCH (08:11)
[2018-01-21] MEDS ORDERED: Midazolam 1 MG/ML 2 ML SDV ONE (08:55)
[2018-01-21] MEDS ORDERED: Propofol 200 MG/20 ML SDV ONE ×2 (08:55→09:15)
[2018-01-21] MEDS ORDERED: fentaNYL 100 MCG/2 ML SDV ONE (08:55)
--- NOTE | 2018-01-21 09:58 | PCM.OPNOTE ---
- General Post-Op/Procedure Note Date of Surgery/Procedure: 01/21/18 Operative Procedure(s): EGE with bx and balloon dilitation of distal esophagus Pre Op Diagnosis: abdominal pain dysphagia Post-Op Diagnosis: Same Anesthesia Technique: MAC Primary Surgeon: Harley Daniels EBL in mLs: 0 Complications: None Condition: Good Free Text/Narrative:: Intake & Output 01/20/18 01/21/18 01/21/18 23:59 07:59 15:59 Intake Total 1985 887 Output Total 1000 Balance 985 88
--- NOTE | 2018-01-21 10:04 | PCM.PN ---
- General Info Date of Service: 01/21/18 - Patient Data Vitals - Most Recent: Last Vital Signs Temp 98.1 F 01/21/18 08:07 Pulse 46 L 01/21/18 08:07 Resp 17 01/21/18 08:07 BP 117/69 01/21/18 08:07 Pulse Ox 92 L 01/21/18 08:07 Weight - Most Recent: 106.73 kg I&O - Last 24 Hours: Intake & Output 01/20/18 01/21/18 01/21/18 23:59 07:59 15:59 Intake Total 1985 887 Output Total 1000 Balance 985 887 Med Orders - Current: Current Medications Acetaminophen (Tylenol) 650 mg PO Q4H PRN PRN Reason: Pain/Fever Last Admin: 01/20/18 10:49 Dose: 650 mg Al Hydroxide/Mg Hydroxide (Mag-Al Plus) 30 ml PO QID PRN PRN Reason: Abdominal Pain Last Admin: 01/20/18 18:11 Dose: 30 ml Hydromorphone HCl (Dilaudid) 1 mg IVPUSH Q4H PRN PRN Reason: Pain Lactated Ringer's (Ringers, Lactated) 1,000 mls @ 50 mls/hr IV [facility]RECTED [facility] Last Admin: 01/21/18 06:25 Dose: 50 mls/hr Ondansetron HCl (Zofran) 4 mg IVPUSH Q8H PRN PRN Reason: Nausea Pantoprazole Sodium (Protonix Iv) 40 mg IVPUSH Q12H [facility] Last Admin: 01/21/18 08:11 Dose: 40 mg Discontinued Medications Al Hydroxide/Mg Hydroxide 30 (ml/ Lidocaine HCl 15 ml) 0 ml PO ONETIME ONE Stop: 01/19/18 20:02 Last Admin: 01/19/18 20:06 Dose: 45 ml Famotidine (Pepcid) 20 mg IVPUSH ONETIME ONE Stop: 01/19/18 19:52 Last Admin: 01/19/18 20:01 Dose: 20 mg Fentanyl (Sublimaze) Confirm Administered Dose 100 mcg .ROUTE .STK-MED ONE Stop: 01/21/18 08:56 Sodium Chloride (Normal Saline) 1,000 mls @ 999 mls/hr IV ONETIME ONE Stop: 01/19/18 15:49 Last Admin: 01/19/18 15:30 Dose: 999 mls/hr Sodium Chloride (Normal Saline) 1,000 mls @ 100 mls/hr IV [facility] Last Admin: 01/19/18 20:00 Dose: 100 mls/hr Lactated Ringer's (Ringers, Lactated) 1,000 mls @ 75 mls/hr IV [facility]RECTED [facility] Last Admin: 01/19/18 22:26 Dose: 75 mls/hr Midazolam HCl (Versed 1 Mg/Ml) Confirm Administered Dose 2 mg .ROUTE .STK-MED ONE Stop: 01/21/18 08:56 Morphine Sulfate (Morphine) 4 mg IVPUSH ONETIME ONE Stop: 01/19/18 14:50 Last Admin: 01/19/18 15:34 Dose: 4 mg Morphine Sulfate (Morphine) 4 mg IVPUSH ONETIME ONE Stop: 01/19/18 18:53 Last Admin: 01/19/18 18:57 Dose: 4 mg Ondansetron HCl (Zofran) 4 mg IVPUSH ONETIME ONE Stop: 01/19/18 14:50 Last Admin: 01/19/18 15:32 Dose: 4 mg Propofol (Diprivan 20 Ml) Confirm Administered Dose 200 mg .ROUTE .STK-MED ONE Stop: 01/21/18 08:56 Propofol (Diprivan 20 Ml) Confirm Administered Dose 200 mg .ROUTE .STK-MED ONE Stop: 01/21/18 09:16 Sodium Chloride (Saline Flush) 10 ml FLUSH ASDIRECTED PRN PRN Reason: Keep Vein Open Last Admin: 01/19/18 15:34 Dose: 10 ml - Problem List Review Problem List Initiated/Reviewed/Updated: Yes - My Orders Last 24 Hours: My Active Orders 01/20/18 09:41 Acetaminophen [Tylenol] 650 mg PO Q4H PRN 01/20/18 09:45 Lactated Ringers [Ringers, Lactated] 1,000 ml IV ASDIRECTED 01/20/18 16:36 Verify Patient Consent Obtain [RC] 0700 01/20/18 16:38 Verify Patient Consent Obtain [RC] 0700 Schedule Procedure [COMM] Routine 01/20/18 Dinner [place] Diet [DIET] Nothing per Oral After Midnight Diet [DIET] 01/21/18 08:00 Schedule Procedure [COMM] Routine 01/21/18 09:58 Patient Status Manage Transfer [TRANSFER] Routine 01/21/18 10:00 Peripheral IV Discontinue [OM.PC] Stat 01/21/18 10:03 Ready for Discharge [RC] PER UNIT ROUTINE 01/21/18 Lunch [place] Diet [DIET] - Assessment Assessment:: abdominal pain is much better and tenderness has resolved in the abdomen ass improved plan will advance diet plan EGD and esophageal dilitation discussed the risk and complications pt understand and consents - Plan Plan:: discharge dictated BEN
--- NOTE | 2018-01-21 10:18 | PCM48HPAN ---
Post Anesthesia Note - EVALUATION WITHIN 48HRS OF ANESTHETIC Vital Signs in Normal Range: Yes Patient Participated in Evaluation: Yes Respiratory Function Stable: Yes Airway Patent: Yes Cardiovascular Function Stable: Yes Hydration Status Stable: Yes Pain Control Satisfactory: Yes Nausea and Vomiting Control Satisfactory: Yes Mental Status Recovered: Yes Pulse Rate: 46 Resp Rate: 17 Temperature: 36.7 C Blood Pressure: 117/69
[2018-01-21 12:01] VITALS: BP 117/71
--- NOTE | 2018-01-22 01:58 | DISCH ---
ADMISSION DATE: 01/19/2018 DISCHARGE DATE: 01/21/2018 HISTORY: This is a 62-year-old who came in through the emergency room on 01/19 with severe abdominal pain. I was called to evaluate the patient. The pain has been going on for 2 weeks and had a definite nocturnal character with it with improvement with food. Because of the severity of the pain, the patient was admitted. PHYSICAL EXAMINATION: ABDOMEN: The examination showed mild tenderness over the duodenal area. HEART: Normal. LUNGS: Normal. HEAD: Normal. NECK AREA: Normal. NEUROLOGIC: Normal. HOSPITAL COURSE: The patient was placed in the hospital, and because of the food that caused increase in the pain, he was placed on a clear liquid diet, IVs, and started on the IV Protonix 40 mg twice a day. The patient improved on this regime and then his diet was slowly added, which he tolerated and his IV was discontinued. The patient continued improvement. In addition to the pain in the abdomen, he complained of dysphagia. He was then brought to the operating room, where he underwent upper GI endoscopy, which demonstrated the cause of the pain as being due to a penetrating ulcer in the duodenal bulb. His distal esophagus was dilated up to 54-[place], although no definite pathology was seen there. The patient had reached maximum hospital benefit, was discharged from the hospital on medications of Protonix 40 mg twice a day. His metronidazole and Cipro will be held, aspirin will also be held. He will be followed up with his family doctor and his H. pylori status will be reviewed through the courtesy of Dr. Esteban' office and his biopsy reports reviewed. DISCHARGE DIAGNOSES: 1. Abdominal pain secondary to peptic ulcer disease, improved with Protonix. 2. Dysphagia with balloon dilatation distal esophagus. DIET: Discharge with a bland diet. DISCHARGE MEDICATIONS: Protonix 40 mg twice a day. No aspirin, Aleve, or ibuprofen. FOLLOW-UP: Will be followed up with Dr. Esteban. CONDITION ON DISCHARGE: Improved and may resume work. FINAL DIAGNOSIS: ACTIVITY: MMODAL /[id number]
--- NOTE | 2018-01-22 09:20 | OR ---
DATE OF OPERATION: 01/21/2018 SURGEON: Harley Daniels MD PREOPERATIVE DIAGNOSIS: 1. Abdominal pain. 2. Dysphagia. POSTOPERATIVE DIAGNOSIS: 1. Abdominal pain. 2. Dysphagia. OPERATION PERFORMED: Esophagogastroduodenoscopy with biopsy and balloon dilatation to 54-[place]. FINDINGS: Some edema and erythema in the antrum and a duodenal ulcer with a crater located in the duodenal bulb. Second portion of the duodenum, body, cardia, and fundus of the stomach were unremarkable. The distal esophagus showed a sharp Z-line and was free of any problem. There was a small sliding hiatal hernia. Rest of the esophagus did not show any disease. DESCRIPTION OF PROCEDURE: The patient taken to the endoscopy room, placed in the supine position, connected to monitoring equipment, given IV sedation, placed in left lateral position, and a bite-block was inserted. After given sedation, video Olympus gastroscope placed in the posterior oropharynx, under direct vision, threaded past the cricopharyngeus down the esophagus into the stomach. The stomach was insufflated, and the scope passed through the pylorus to the 2nd portion of the duodenum. Second portion of the duodenum was normal, but the duodenum bulb showed a penetrating duodenal ulcer which was a clear explanation for the patient's abdominal pain. The antrum showed some edema, this was biopsied. Body and cardia of the stomach were viewed. J-maneuver was performed showing hiatus with a sliding hiatal hernia. Scope was withdrawn from the GE junction and was unremarkable with no acute disease or sharp Z-line was noted. This was then dilated with balloon dilator inserted through the channel of the scope and was dilated up to 54-[place]. The rest of the esophagus was viewed as the scope withdrawn and unremarkable. The patient tolerated the procedure, sent to recovery room in a stable condition, and will be followed up in the clinic. ANESTHESIA: ESTIMATED BLOOD LOSS: MMODAL /[id number]
== END 2018-01-21 14:15 | disposition home or self-care (01) ==
LOC: JD.ED 13:48 → JD.MS 20:52
PROVIDERS: ADMIT Surgery; ATTEND Surgery
DX: K26.9 Duodenal ulcer, unspecified as acute or chronic, without hemorrhage or perforation (principal); K44.9 Diaphragmatic hernia without obstruction or gangrene; R13.10 Dysphagia, unspecified; Z79.82 Long term (current) use of aspirin; Z86.73 Personal history of transient ischemic attack (TIA), and cerebral infarction without residual deficits
CPT/HCPCS: 36415; 43239; 43249; 76705; 80053; 81001; 82977; 83690; 84484; 85025; 86140; 93005; 96361; 96374; 96375; 96376; 99285; A9270; C9113; G0378; J2250; J2270; J2405; J3010; J7040; J7050; J7120; J2704

== ENCOUNTER 2018-08-15 11:16 | Inpatient (IN) | payer BC ==
[2018-08-15] MEDS ORDERED: Ondansetron 4 MG/2 ML SDV IVPUSH ONE (12:40)
[2018-08-15] MEDS ORDERED: Dextrose 5%-0.9% NaCl 1,000 ML IV SCH ×2 (12:45→17:00)
--- NOTE | 2018-08-15 12:49 | EDM.PDOC ---
ED HPI GENERAL MEDICAL PROBLEM - General Chief Complaint: Abdominal Pain Stated Complaint: ABD PAIN Time Seen by Provider: 08/15/18 12:49 Source of Information: Reports: Patient History Limitations: Reports: No Limitations - History of Present Illness INITIAL COMMENTS - FREE TEXT/NARRATIVE: 63-year-old male presents to the ED with primarily epigastric and periumbilical pain. Still states it started after he ate cereal for breakfast about 0500 hrs. this morning. The pain increased in intensity and radiates frequently up into his right lower quadrant and right flank. He started vomiting about 0800 hrs. and has vomited 6 times since. No hematemesis. No diarrhea. No previous abdominal surgery. He had a normal bowel movement this morning. Associated fever or chills. Similar problems. He does not have heartburn does not take Tums or Rolaids. No trouble swallowing. Patient does not drink any alcohol. Onset: Today Onset Date: 08/15/18 Onset Time: 06:00 Duration: Hour(s): (Started vomiting about 0800 hrs. this morning.) Location: Reports: Abdomen (Epigastrium periumbilical and right upper quadrant of the abdomen reading slightly through to his right flank.) Quality: Reports: Other Severity: Severe (Pain is constant with a colicky component. Rates the pain as 8 out of 10) Improves with: Reports: None Worsens with: Reports: None Context: Reports: Other (Spontaneous occurrence of epigastric periumbilical pain.). Denies: Activity, Exercise, Lifting, Sick Contact, Trauma Associated Symptoms: Reports: Nausea/Vomiting (Recurrent nausea and vomiting 6 and 0800 hrs. this morning bilious without blood), Shortness of Breath (Mild shortness of breath is deep breathing makes the pain worse.). Denies: Chest Pain, Cough, cough w sputum, Loss of Appetite, Malaise Treatments METAL CHECKER: Reports: Other (see below) (None.) Middle Abdominal Pain Score (Numeric/FACES): 8 - Related Data Allergies Allergy/AdvReac Type Severity Reaction Status Date / Time No Known Allergies Allergy Verified 08/15/18 11:51 Home Meds: Home Meds Ondansetron [Zofran] 4 mg BUCCAL Q6H PRN #5 tab 08/15/18 [Rx] oxyCODONE HCl/Acetaminophen [Percocet 5-325 mg Tablet] 1 - 2 each PO Q4H PRN # 10 tablet 08/15/18 [Rx] Past Medical History - Past Health History Medical/Surgical History: Denies Medical/Surgical History HEENT History: Reports: Other (See Below) Other HEENT History: wears glasses Cardiovascular History: Reports: Syncope 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 Surgically removed - Past Surgical History Other Oncologic Surgeries/Procedures: surgical removed of skin Ca. Social & Family History - Family History Family Medical History: Noncontributory - Tobacco Use Smoking Status *Q: Never Smoker - Caffeine Use Caffeine Use: Reports: Soda Other Caffeine Use: once in awhile - Recreational Drug Use Recreational Drug Use: No - Living Situation & Occupation Living situation: Reports: Single Occupation: Employed ED ROS GENERAL - Review of Systems Review Of Systems: See Below Constitutional: Denies: Fever, Chills, Malaise, Weakness, Fatigue, Weight Loss HEENT: Reports: No Symptoms Respiratory: Reports: Shortness of Breath Cardiovascular: Reports: No Symptoms Endocrine: Reports: No Symptoms GI/Abdominal: Reports: Abdominal Pain, Decreased Appetite, Nausea, Vomiting ( Recurrent nausea and vomiting since 8:00 this morning 6 without blood.). Denies: Constipation, Diarrhea : Reports: No Symptoms Musculoskeletal: Reports: No Symptoms Skin: Reports: No Symptoms Neurological: Reports: No Symptoms Psychiatric: Reports: No Symptoms Hematologic/Lymphatic: Reports: No Symptoms Immunologic: Reports: No Symptoms ED EXAM, GI/ABD - Physical Exam Exam: See Below Exam Limited By: No Limitations General Appearance: Alert, WD/WN, Moderate Distress, Other (Patient was vomiting and retching and dry heaving when I entered the room.) Eyes: Bilateral: Normal Appearance Throat/Mouth: Normal Inspection, Normal Oropharynx, Other (Time is dry and coated) Head: Atraumatic Neck: Normal Inspection, Supple, Non-Tender, Full Range of Motion. No: Lymphadenopathy (L), Lymphadenopathy (R) Respiratory/Chest: No Respiratory Distress, Lungs Clear, Normal Breath Sounds, No Accessory Muscle Use, Chest Non-Tender, Respiratory Distress Cardiovascular: Normal Peripheral Pulses, Regular Rate, Rhythm, No Edema, No Gallop, No Murmur, Bradycardia (Patient states his heart rate is always in the 30s. Does not experience dizziness or lightheadedness.) GI/Abdominal Exam: No Organomegaly, No Distention, Guarding (Right upper quadrant with a positive Ontiveros's sign.), Abnormal Bowel Sounds (Bowel sounds are fairly quiet sent.). No: Non-Tender, Rigid, Rebound, Tender (Male) Exam: No Hernia Back Exam: Normal Inspection, Full Range of Motion, CVA Tenderness (R). No: CVA Tenderness (L) (Mild right costovertebral angle tenderness) Extremities: Normal Inspection, Normal Range of Motion, Non-Tender, No Pedal Edema Neurological: Alert, Oriented, CN II-XII Intact, Normal Cognition Psychiatric: Normal Affect, Normal Mood Skin Exam: Warm, Dry, Intact, Normal Color, No Rash Course - Vital Signs Last Recorded V/S: Last Vital Signs Temp 36.7 C 08/15/18 11:43 Pulse 35 L 08/15/18 11:43 Resp 18 08/15/18 11:43 BP 125/78 08/15/18 11:43 Pulse Ox 94 L 08/15/18 11:43 - Orders/Labs/Meds Orders: Active Orders 24 hr Category Date Time Status Dextrose 5%-0.9% NaCl [Dextrose 5%-Normal Saline] 1,000 Med 08/15/18 12:45 Active ml IV ASDIRECTED Dextrose 5%-0.9% NaCl [Dextrose 5%-Normal Saline] 1,000 Med 08/15/18 17:00 Active ml IV ASDIRECTED Ketorolac [Toradol] Med 08/15/18 14:30 Active 30 mg IVPUSH ONETIME Medication Orders Dextrose/Sodium Chloride (Dextrose 5%-Normal Saline) 1,000 mls @ 250 mls/hr IV ASDIRECTED [facility] Last Admin: 08/15/18 12:55 Dose: 250 mls/hr Dextrose/Sodium Chloride (Dextrose 5%-Normal Saline) 1,000 mls @ 150 mls/hr IV ASDIRECTED [facility] Last Admin: 08/15/18 17:28 Dose: 150 mls/hr Ketorolac Tromethamine (Toradol) 30 mg IVPUSH ONETIME [facility] Last Admin: 08/15/18 15:05 Dose: 30 mg Labs: Laboratory Tests 08/15/18 08/15/18 Range/Units 12:45 12:45 WBC 12.40 H (4.23-9.07) K/mm3 RBC 5.02 (4.63-6.08) M/mm3 Hgb 15.6 (13.7-17.5) gm/L Hct 46.3 (40.1-51.0) % MCV 92.2 (79.0-92.2) fl MCH 31.1 (25.7-32.2) pg MCHC 33.7 (32.2-35.5) g/dl RDW Std Deviation 43.3 (35.1-43.9) fL Plt Count 222 (163-337) K/mm3 MPV 10.1 (9.4-12.3) fl Neutrophils % (Manual) 82 H (40-60) % Band Neutrophils % 0 (0-10) % Lymphocytes % (Manual) 13 L (20-40) % Atypical Lymphs % 0 % Monocytes % (Manual) 5 (2-10) % Eosinophils % (Manual) 0 L (0.8-7.0) % Basophils % (Manual) 0 L (0.2-1.2) Platelet Estimate Adequate RBC Morph Comment Normal Sodium 138 (136-145) mEq/L Potassium 4.7 (3.5-5.1) mEq/L Chloride 107 (98-107) mEq/L Carbon Dioxide 23 (21-32) mEq/L Anion Gap 12.7 (5-15) BUN 17 (7-18) mg/dL Creatinine 1.2 (0.7-1.3) mg/dL Est Cr Clr Drug Dosing 75.31 mL/min Estimated GFR (MDRD) > 60 (>60) mL/min BUN/Creatinine Ratio 14.2 (14-18) Glucose 124 H (80-115) mg/dL Calcium 9.6 (8.5-10.1) mg/dL Total Bilirubin 1.8 H (0.2-1.0) mg/dL GGT 170 H (15-85) U/L AST 22 (15-37) U/L ALT 29 (16-63) U/L Alkaline Phosphatase 134 H (46-116) U/L C-Reactive Protein 0.6 (<1.0) mg/dL Total Protein 7.9 (6.4-8.2) g/dl Albumin 3.8 (3.4-5.0) g/dl Globulin 4.1 gm/dL Albumin/Globulin Ratio 0.9 L (1-2) Amylase 194 H (25-115) U/L Meds: Medications Generic Name Dose Route Start Last Admin Trade Name Freq PRN Reason Stop Dose Admin Dextrose/Sodium Chloride 1,000 mls @ 250 mls/hr 08/15/18 12:45 08/15/18 12:55 Dextrose 5%-Normal Saline IV 250 mls/hr ASDIRECTED [facility] Administration Dextrose/Sodium Chloride 1,000 mls @ 150 mls/hr 08/15/18 17:00 08/15/18 17:28 Dextrose 5%-Normal Saline IV 150 mls/hr ASDIRECTED [facility] Administration Ketorolac Tromethamine 30 mg 08/15/18 14:30 08/15/18 15:05 Toradol IVPUSH 30 mg ONETIME [facility] Administration Discontinued Medications Generic Name Dose Route Start Last Admin Trade Name Tyroneq PRN Reason Stop Dose Admin Hydromorphone HCl 1 mg 08/15/18 12:58 08/15/18 13:04 Dilaudid IVPUSH 08/15/18 12:59 1 mg ONETIME ONE Administration Hydromorphone HCl 1 mg 08/15/18 16:58 08/15/18 17:30 Dilaudid IVPUSH 08/15/18 16:59 1 mg ONETIME ONE Administration Metoclopramide HCl 10 mg 08/15/18 16:58 08/15/18 17:28 Reglan IVPUSH 08/15/18 16:59 10 mg ONETIME ONE Administration Ondansetron HCl 4 mg 08/15/18 12:40 08/15/18 12:55 Zofran IVPUSH 08/15/18 12:41 4 mg ONETIME ONE Administration - Radiology Interpretation Free Text/Narrative:: 63-year-old male presents the ED with acute onset of epigastric periumbilical pain starting around 0600 hrs. this morning. Started vomiting about 0800 hrs. and is continued to vomit since. Pain is mostly epigastric. Radiates up into the right upper quadrant and into his right flank area at times. I.e. a colicky component to the pain. Previous abdominal surgery. Has had no previous similar symptoms. Not have any symptoms that would suggest dyspepsia or peptic ulcer disease. He is afebrile. He did have cold cereal for breakfast this morning. Examination reveals question bowel sounds. Very tender in the right upper quadrant under the costal margin with a strongly positive Ontiveros's sign suggesting biliary colic or gallbladder disease. Plan IV will be D5 normal saline at 250 mils per hour. Given Dilaudid 1 mg IV with Zofran 4 mg IV for pain relief. Will have routine labs including a GGT. Amylase also ordered. Gallbladder ultrasound completed - Re-Assessments/Exams Free Text/Narrative Re-Assessment/Exam: 08/15/18 13:42 Labs are partially back. White count is mildly elevated at 12.40. Differential pending. Hemoglobin is normal at 15.6 with hematocrit of 46.3. Platelet count normal at 222,000. Serum sodium is 138 with potassium of 4.7. Chloride is 107 with a bicarbonate of 23. And a gap is 12.7. BUNs 17 with creatinine 1.2. GFR is greater than 60. Glucose is slightly elevated 124. Calcium normal at 9.6. Total bilirubin is elevated at 1.8. GGT is slightly elevated at 170. AST is 22 with a nail T of 29 phosphatase is 134 again slightly elevated. Amylase is mildly elevated at 194 08/15/18 14:28 Patient reports his pain is down to 1 or 2 out of 10. The lab suggests that he may have a stone /sludgein his common bile duct. Since he presents at such an early stage it's difficult to tell as the lab values have been not had time to increase in his blood. Still awaiting the gallbladder ultrasound to be done. I'm going to give him Toradol 30 mg IV for further pain relief. 08/15/18 15:41 gallbladder ultrasound has been completed. No stones are evident within the gallbladder. The gallbladder wall is minimally thickened . There is no pericholecystic fluid. Bile duct is visualized and is 3 mm in diameter without any signs of obstruction hepatic ducts also appear to be normal without any obstruction. Therefore it is most likely passed a small stone or sludge to causes acute biliary colic. Plan will be to discharge him on a clear fluid diet. He doesn't have to work tomorrow. He is to follow a low-fat diet and see how things go. Prescription for Zofran 4 mg sublingually every 4-6 hours. For nausea case the pain reoccurs. Percocet tabs 5/325 mg tabs 2 at onset of gallbladder pain if needed. 10 tablets provided 08/15/18 16:59 the patient has not left the ED the because he started to develop increased mid abdominal pain again rating up into the right upper quadrant with associated nausea. It appears that he is not settling down. He has at risk of a common bile duct obstruction as his bilirubin was mildly elevated 1.8 and his amylase was also mildly elevated. Therefore I think it is prudent to admit the patient hospital for pain management the labs in the morning to establish whether or not he could have common bile duct obstruction requiring ERCP. IV will be restarted at this time with D5 normal saline at 150 mils per hour. Will give him Dilaudid 1 mg IV with Reglan 10 mg IV for nausea relief. 08/15/18 17:30 Spoke with contract accountant hospitalist Dr. Londono contract accountant hospitalist and patient has been accepted to the med surgery floor on telemetry. Adenosis his acute biliary colic with mild pancreatitis. Departure - Departure Time of Disposition: 15:43 Disposition: Admitted As Inpatient 66 Condition: Fair Clinical Impression: Biliary colic, Bradycardia by electrocardiogram, Pancreatitis, acute Abdominal pain Qualifiers: Abdominal location: right upper quadrant Qualified Code(s): R10.11 - Right upper quadrant pain - Discharge Information *PRESCRIPTION DRUG MONITORING PROGRAM REVIEWED*: Not Applicable *COPY OF PRESCRIPTION DRUG MONITORING REPORT IN PATIENT [place]: Not Applicable Prescriptions: Ondansetron [Zofran] 4 mg BUCCAL Q6H PRN #5 tab PRN Reason: nausea or vomiting oxyCODONE HCl/Acetaminophen [Percocet 5-325 mg Tablet] 1 - 2 each PO Q4H PRN # 10 tablet PRN Reason: pain relief. Instructions: Cholecystitis, [id number] Referrals: Ismael Esteban Jr, MD [Primary Care Provider] - Forms: ED Department Discharge - My Orders Last 24 Hours: My Active Orders 08/15/18 12:45 Dextrose 5%-0.9% NaCl [Dextrose 5%-Normal Saline] 1,000 ml IV ASDIRECTED 08/15/18 14:30 Ketorolac [Toradol] 30 mg IVPUSH ONETIME 08/15/18 17:00 Dextrose 5%-0.9% NaCl [Dextrose 5%-Normal Saline] 1,000 ml IV ASDIRECTED - Assessment/Plan Last 24 Hours: My Active Orders 08/15/18 12:45 Dextrose 5%-0.9% NaCl [Dextrose 5%-Normal Saline] 1,000 ml IV ASDIRECTED 08/15/18 14:30 Ketorolac [Toradol] 30 mg IVPUSH ONETIME 08/15/18 17:00 Dextrose 5%-0.9% NaCl [Dextrose 5%-Normal Saline] 1,000 ml IV ASDIRECTED
[2018-08-15] MEDS ORDERED: HYDROmorphone 1 MG/ML Syringe IVPUSH ONE ×2 (12:58→16:58)
[2018-08-15] MEDS ORDERED: Ketorolac 30 MG/ML SDV IVPUSH SCH (14:30)
--- NOTE | 2018-08-15 15:40 | US ---
Limited abdominal ultrasound: Multiple real-time images were obtained of the upper right abdomen. Comparison: Prior right upper quadrant abdominal ultrasound dated 01/19/18. Technologist's note: Suboptimal exam due to bowel gas Gallbladder contains no gallstones. No gallbladder wall thickening or biliary duct dilatation is seen. Liver shows no focal parenchymal abnormality. Right kidney shows no hydronephrosis or discrete mass. Inferior vena cava is patent. Visualized portions of the pancreas appear within normal limits. Impression: 1. Somewhat less than optimal details. No definite abnormality is appreciated on right upper quadrant abdominal ultrasound. Diagnostic code #2
[2018-08-15] MEDS ORDERED: Metoclopramide 10 MG/2 ML SDV IVPUSH ONE (16:58)
[2018-08-15] MEDS ORDERED: Hyoscyamine 0.125 MG Tab.SL SL ONE (18:20)
[2018-08-15] MEDS ORDERED: Dicyclomine 10 MG Cap PO ONE (18:20)
[2018-08-15] MEDS ORDERED: Magnesium Hydroxide 400 MG/5 ML Susp 30 ML Cup PO PRN (19:45)
[2018-08-15] MEDS ORDERED: Ondansetron 4 MG/2 ML SDV IV PRN (19:45)
[2018-08-15] MEDS ORDERED: Bisacodyl 5 MG Tab PO PRN (19:45)
[2018-08-15] MEDS ORDERED: Polyethylene Glycol 3350 Powder 17 GM Packet PO PRN (19:45)
[2018-08-15] MEDS ORDERED: Docusate Sodium 100 MG Cap PO PRN (19:45)
[2018-08-15] MEDS ORDERED: Acetaminophen 325 MG Tab PO PRN (19:45)
[2018-08-15] MEDS ORDERED: Ondansetron 4 MG Tab.DIS PO PRN (19:45)
--- NOTE | 2018-08-15 20:09 | PCM.HP ---
H&P History of Present Illness - General Date of Service: 08/15/18 Admit Problem/Dx: Admission Diagnosis/Problem Admission Diagnosis/Problem Pancreatitis due to biliary obstruction Source of Information: Patient, Old Records, Provider History Limitations: Reports: No Limitations - History of Present Illness Initial Comments - Free Text/Narative: HPI: This is an 33 yo male with past medical hx/o Bradycardia, Syncope, PUD, h/o CVA who comes in for acute biliary colic and mild pancreatitis. Pt c/o worsening RUQ pain and N/V that started at 0500 after breakfast. He did have similar symptoms in December and was diagnosed with PUD, but states he did not have the N/V then. Patient denies any F/C, Diarrhea, CP, heartburn, bloody urine or stool , or any other /GI complaints. His initial workup in the ED showed a CBC remarkable for WBC 12.4, Neut 82%, Lymph 13%. His chemistry is remarkable for Glu 124, Bilirubin 1.8, GGT 170, Alk phos 134, Amylase 194. Physical exam remarkable for RUQ pain, Guarding, Positive Ontiveros's sign. U/S of Gallbladder negative for stones, no signs of obstruction, bile duct 3mm. He is subsequently admitted to the medical floor. He is a Full Code. Her PCP is Dr. Ismael Esteban. Middle Abdominal Pain Score (Numeric/FACES): 8 - Related Data Allergies/Adverse Reactions: Allergies Allergy/AdvReac Type Severity Reaction Status Date / Time No Known Allergies Allergy Verified 08/15/18 18:40 Home Medications: Home Meds Ondansetron [Zofran] 4 mg BUCCAL Q6H PRN #5 tab 08/15/18 [Rx] oxyCODONE HCl/Acetaminophen [Percocet 5-325 mg Tablet] 1 - 2 each PO Q4H PRN # 10 tablet 08/15/18 [Rx] Past Medical History - Past Health History Medical/Surgical History: Denies Medical/Surgical History HEENT History: Reports: Other (See Below) Other HEENT History: wears glasses Cardiovascular History: Reports: Syncope Other Cardiovascular History: bradycardic---heart rate runs 30-40s, pt. is asymptomatic Gastrointestinal History: Reports: PUD Other Gastrointestinal History: Ulcer Musculoskeletal History: Reports: Other (See Below) Other Musculoskeletal History: Left foot fracture Neurological History: Reports: CVA Oncologic (Cancer) History: Reports: Other (See Below) Other Oncologic History: skin cancer Dermatologic History: Reports: Other (See Below) Other Dermatologic History: skin Ca type unknown. Surgically removed - Past Surgical History HEENT Surgical History: Reports: None Cardiovascular Surgical History: Reports: None GI Surgical History: Reports: EGD Neurological Surgical History: Reports: None Musculoskeletal Surgical History: Reports: None Oncologic Surgical History: Reports: Other (See Below) Other Oncologic Surgeries/Procedures: surgical removed of skin Ca. Dermatological Surgical History: Reports: None Social & Family History - Family History Family Medical History: Noncontributory - Tobacco Use Smoking Status *Q: Never Smoker - Caffeine Use Caffeine Use: Reports: Soda Other Caffeine Use: once in awhile - Recreational Drug Use Recreational Drug Use: No - Living Situation & Occupation Living situation: Reports: Single Occupation: Employed H&P Review of Systems - Review of Systems: Review Of Systems: ROS reveals no pertinent complaints other than HPI. Exam - Exam Exam: See Below - Vital Signs Vital Signs: Last Vital Signs Temp 97.2 F 08/15/18 18:39 Pulse 35 L 08/15/18 18:39 Resp 18 08/15/18 18:39 BP 129/61 08/15/18 18:39 Pulse Ox 93 L 08/15/18 18:39 Weight: 243 lb - Exam Quality Assessment: Supplemental Oxygen (2L NC), DVT Prophylaxis General: Alert, Oriented, Cooperative, Moderate Distress HEENT: PERRLA, Hearing Intact, Mucosa Moist & [place], Nares Patent, Normal Nasal Septum, Posterior Pharynx Clear, Conjunctiva Clear, EOMI, EACs Clear, TMs Clear Neck: Supple, Trachea Midline, 2 Lungs: Clear to Auscultation, Normal Respiratory Effort Cardiovascular: Regular Rhythm, Bradycardia (normal per pt) GI/Abdominal Exam: Soft, No Organomegaly, No Distention, No Mass, Pelvis Stable , Guarding (RUQ), Tender (RUQ), Abnormal Bowel Sounds (hypoactive) (Male) Exam: Deferred Rectal (Males) Exam: Deferred Back Exam: Normal Inspection, Full Range of Motion, NT Extremities: Normal Inspection, Normal Range of Motion, Non-Tender, No Pedal Edema, Normal Capillary Refill Peripheral Pulses: 3+: Posterior Tibial (L), Posterior Tibial (R), Dorsalis Pedis (L), Dorsalis Pedis (R) Skin: Warm, Dry, Intact Neurological: Cranial Nerves Intact (grossly) Neuro Extensive - Mental Status: Alert, Oriented x3, Normal Mood/Affect, Normal Cognition Psychiatric: Alert, Normal Affect, Normal Mood - Patient Data Lab Results Last 24 hrs: Laboratory Results - last 24 hr 08/15/18 08/15/18 Range/Units 12:45 12:45 WBC 12.40 H (4.23-9.07) K/mm3 RBC 5.02 (4.63-6.08) M/mm3 Hgb 15.6 (13.7-17.5) gm/L Hct 46.3 (40.1-51.0) % MCV 92.2 (79.0-92.2) fl MCH 31.1 (25.7-32.2) pg MCHC 33.7 (32.2-35.5) g/dl RDW Std Deviation 43.3 (35.1-43.9) fL Plt Count 222 (163-337) K/mm3 MPV 10.1 (9.4-12.3) fl Neutrophils % (Manual) 82 H (40-60) % Band Neutrophils % 0 (0-10) % Lymphocytes % (Manual) 13 L (20-40) % Atypical Lymphs % 0 % Monocytes % (Manual) 5 (2-10) % Eosinophils % (Manual) 0 L (0.8-7.0) % Basophils % (Manual) 0 L (0.2-1.2) Platelet Estimate Adequate RBC Morph Comment Normal Sodium 138 (136-145) mEq/L Potassium 4.7 (3.5-5.1) mEq/L Chloride 107 (98-107) mEq/L Carbon Dioxide 23 (21-32) mEq/L Anion Gap 12.7 (5-15) BUN 17 (7-18) mg/dL Creatinine 1.2 (0.7-1.3) mg/dL Est Cr Clr Drug Dosing 75.31 mL/min Estimated GFR (MDRD) > 60 (>60) mL/min BUN/Creatinine Ratio 14.2 (14-18) Glucose 124 H (80-115) mg/dL Calcium 9.6 (8.5-10.1) mg/dL Total Bilirubin 1.8 H (0.2-1.0) mg/dL GGT 170 H (15-85) U/L AST 22 (15-37) U/L ALT 29 (16-63) U/L Alkaline Phosphatase 134 H (46-116) U/L C-Reactive Protein 0.6 (<1.0) mg/dL Total Protein 7.9 (6.4-8.2) g/dl Albumin 3.8 (3.4-5.0) g/dl Globulin 4.1 gm/dL Albumin/Globulin Ratio 0.9 L (1-2) Amylase 194 H (25-115) U/L Result Diagrams: 08/15/18 12:45 08/15/18 12:45 - Problem List (1) Abdominal pain SNOMED Code(s): 30038871 ICD Code: R10.9 - UNSPECIFIED ABDOMINAL PAIN Status: Acute Priority: High Current Visit: Yes Qualifiers: Abdominal location: right upper quadrant Qualified Code(s): R10.11 - Right upper quadrant pain (2) Biliary colic SNOMED Code(s): 80929576 ICD Code: K80.50 - CALCULUS OF BILE DUCT W/O CHOLANGITIS OR CHOLECYST W/O OBST Status: Acute Priority: High Current Visit: Yes (3) Bradycardia by electrocardiogram SNOMED Code(s): 792110449 ICD Code: R00.1 - BRADYCARDIA, UNSPECIFIED Status: Acute Priority: High Current Visit: Yes (4) Pancreatitis, acute SNOMED Code(s): 932855144 ICD Code: K85.90 - ACUTE PANCREATITIS WITHOUT NECROSIS OR INFECTION, UNSP Status: Acute Priority: High Current Visit: Yes Qualifiers: Pancreatitis type: unspecified pancreatitis type Acute pancreatitis complication: unspecified Qualified Code(s): K85.90 - Acute pancreatitis without necrosis or infection, unspecified Problem List Initiated/Reviewed/Updated: Yes Orders Last 24hrs: Active Orders 24 hr Category Date Time Status Admission Status [Patient Status] [ADT] Routine ADT 08/15/18 17:35 Active Ambulate [RC] ASDIRECTED Care 08/15/18 20:03 Active Cardiac Monitoring [RC] CONTINUOUS Care 08/15/18 19:48 Active EKG Documentation Completion [RC] ASDIRECTED Care 08/15/18 18:41 Active Height and Weight [RC] DAILY Care 08/15/18 19:45 Active Intake and Output [RC] QSHIFT Care 08/15/18 19:48 Active May Shower [RC] ASDIRECTED Care 08/15/18 19:45 Active Notify Provider Consults [RC] ASDIRECTED Care 08/15/18 19:55 Active Oxygen Therapy [RC] ASDIRECTED Care 08/15/18 17:51 Active Oxygen Therapy [RC] PRN Care 08/15/18 19:45 Active Pulse Oximetry [RC] CONTINUOUS Care 08/15/18 19:48 Active Up ad Tricia [RC] ASDIRECTED Care 08/15/18 19:45 Active VTE/DVT Education [RC] PER UNIT ROUTINE Care 08/15/18 19:45 Active Vital Signs [RC] Q4H Care 08/15/18 19:45 Active Consult to Physician [CONS] Routine Cons 08/15/18 19:45 Active Nothing per Oral Now Diet [DIET] Diet 08/15/18 Dinner Active AMYLASE [CHEM] AM Lab 08/16/18 05:11 Ordered C-REACTIVE PROTEIN [CHEM] AM Lab 08/16/18 05:11 Ordered C-REACTIVE PROTEIN [CHEM] AM Lab 08/17/18 05:11 Ordered C-REACTIVE PROTEIN [CHEM] AM Lab 08/18/18 05:11 Ordered C-REACTIVE PROTEIN [CHEM] AM Lab 08/19/18 05:11 Ordered C-REACTIVE PROTEIN [CHEM] AM Lab 08/20/18 05:11 Ordered CBC WITH AUTO DIFF [HEME] AM Lab 08/16/18 05:11 Ordered CBC WITH AUTO DIFF [HEME] AM Lab 08/17/18 05:11 Ordered CBC WITH AUTO DIFF [HEME] AM Lab 08/18/18 05:11 Ordered CBC WITH AUTO DIFF [HEME] AM Lab 08/19/18 05:11 Ordered CBC WITH AUTO DIFF [HEME] AM Lab 08/20/18 05:11 Ordered COMPREHENSIVE METABOLIC PN,CMP [CHEM] AM Lab 08/16/18 05:11 Ordered COMPREHENSIVE METABOLIC PN,CMP [CHEM] AM Lab 08/17/18 05:11 Ordered COMPREHENSIVE METABOLIC PN,CMP [CHEM] AM Lab 08/18/18 05:11 Ordered COMPREHENSIVE METABOLIC PN,CMP [CHEM] AM Lab 08/19/18 05:11 Ordered COMPREHENSIVE METABOLIC PN,CMP [CHEM] AM Lab 08/20/18 05:11 Ordered GAMMA GLUTAMYL TRANSFERASE,GGT [CHEM] AM Lab 08/16/18 05:11 Ordered HELICOBACTER PYLORI AB IGG [CHEM] AM Lab 08/16/18 05:11 Ordered LIPASE [CHEM] AM Lab 08/16/18 05:11 Ordered MAGNESIUM [CHEM] AM Lab 08/16/18 05:11 Ordered MAGNESIUM [CHEM] AM Lab 08/17/18 05:11 Ordered MAGNESIUM [CHEM] AM Lab 08/18/18 05:11 Ordered MAGNESIUM [CHEM] AM Lab 08/19/18 05:11 Ordered MAGNESIUM [CHEM] AM Lab 08/20/18 05:11 Ordered Acetaminophen [Tylenol] Med 08/15/18 19:45 Ordered 650 mg PO Q4H PRN Bisacodyl [Dulcolax] Med 08/15/18 19:45 Ordered 5 mg PO DAILY PRN Dextrose 5%-0.9% NaCl [Dextrose 5%-Normal Saline] 1,000 Med 08/15/18 12:45 Active ml IV ASDIRECTED Dextrose 5%-0.9% NaCl [Dextrose 5%-Normal Saline] 1,000 Med 08/15/18 17:00 Active ml IV ASDIRECTED Docusate Sodium [Colace] Med 08/15/18 19:45 Ordered 100 mg PO BID PRN Docusate Sodium/Sennosides [Senna Plus] Med 08/15/18 19:45 Ordered 1 tab PO BID PRN HYDROmorphone [Dilaudid] Med 08/15/18 19:45 Ordered 0.5 mg IVPUSH Q2H PRN Ketorolac [Toradol] Med 08/15/18 19:45 Ordered 30 mg IV Q6H PRN Ketorolac [Toradol] Med 08/15/18 14:30 Active 30 mg IVPUSH ONETIME Magnesium Hydroxide [Milk of Magnesia] Med 08/15/18 19:45 Ordered 30 ml PO Q12H PRN Ondansetron [Zofran ODT] Med 08/15/18 19:45 Ordered 4 mg PO Q4H PRN Ondansetron [Zofran] Med 08/15/18 19:45 Ordered 4 mg IV Q4H PRN Pantoprazole [ProTONIX IV] Med 08/16/18 09:00 Ordered 40 mg IVPUSH DAILY Polyethylene Glycol 3350 [MiraLAX] Med 08/15/18 19:45 Ordered 17 gm PO DAILY PRN Code Status [Resuscitation Status] Routine Resus Stat 08/15/18 19:58 Ordered EKG 12 Lead [EK] Routine Ther 08/15/18 18:40 Ordered Medication Orders Acetaminophen (Tylenol) 650 mg PO Q4H PRN PRN Reason: Pain (Mild 1-3)/fever Bisacodyl (Dulcolax) 5 mg PO DAILY PRN PRN Reason: Constipation Docusate Sodium (Colace) 100 mg PO BID PRN PRN Reason: Constipation Hydromorphone HCl (Dilaudid) 0.5 mg IVPUSH Q2H PRN PRN Reason: Pain (severe 7-10) Dextrose/Sodium Chloride (Dextrose 5%-Normal Saline) 1,000 mls @ 250 mls/hr IV ASDIRECTED [facility] Last Admin: 08/15/18 12:55 Dose: 250 mls/hr Dextrose/Sodium Chloride (Dextrose 5%-Normal Saline) 1,000 mls @ 150 mls/hr IV ASDIRECTED [facility] Last Admin: 08/15/18 17:28 Dose: 150 mls/hr Ketorolac Tromethamine (Toradol) 30 mg IVPUSH ONETIME [facility] Last Admin: 08/15/18 15:05 Dose: 30 mg Ketorolac Tromethamine (Toradol) 30 mg IV Q6H PRN PRN Reason: Pain (moderate 4-6) Magnesium Hydroxide (Milk Of Magnesia) 30 ml PO Q12H PRN PRN Reason: Constipation Ondansetron HCl (Zofran Odt) 4 mg PO Q4H PRN PRN Reason: nausea, able to take PO Ondansetron HCl (Zofran) 4 mg IV Q4H PRN PRN Reason: Nausea/Vomiting Pantoprazole Sodium (Protonix Iv) 40 mg IVPUSH DAILY [facility] Polyethylene Glycol (Miralax) 17 gm PO DAILY PRN PRN Reason: Constipation Senna/Docusate Sodium (Senna Plus) 1 tab PO BID PRN PRN Reason: Constipation Assessment/Plan Comment:: I/P: Acute: Biliary Colic query passed stone/sludge * RUQ pain, N/V Started at 0500 after breakfast, has been increasing * Similar symptoms in December; was diagnosed with PUD * TTP RUQ, Guarding, Positive Ontiveros's sign * WBC 12.4, elevated Bilirubin 1.8, GGT 170, Alk phos 134 * Gallbladder U/S shows nothing acute * Consulted General Surgeon Dr. Reina: * Repeat CMP, GGT, Amylase and Lipase in AM * Will come to see the pt in the AM * NPO diet * IVF * Pain management PRN Mild Pancreatitis * Amylase elevated at 194 * IVF * Pain management PRN * Repeat Amylase and Lipase in AM Bradycardia * HR ranges from 20's to 40's * Normal per pt; Asymptomatic * EKG--> bradycardia * Recommend f/u with circuitry negative inspector after D/C Chronic: Bradycardia Syncope PUD * H pylori pending h/o CVA Plan: Admitted to medical floor He remains stable Other orders as indicated above Routine AM labs NPO DVT Prophylaxis: Ambulation GI Prophylaxis: Protonix Code Status: Full Code; PCP: Dr. Ismael Esteban
[2018-08-15] MEDS: HYDROmorphone 0.5 MG/0.5 ML Syringe IVPUSH PRN (22:43)
[2018-08-15] MEDS: Ketorolac 30 MG/ML SDV IV PRN (22:44)
[2018-08-16] MEDS: HYDROmorphone 0.5 MG/0.5 ML Syringe IVPUSH PRN ×3 (04:52→08:32)
[2018-08-16] MEDS: Ketorolac 30 MG/ML SDV IV PRN ×3 (04:52→22:49)
[2018-08-16] MEDS ORDERED: Dextrose 5%-0.9% NaCl 1,000 ML IV SCH (07:30)
[2018-08-16] MEDS: Pantoprazole 40 MG Vial IVPUSH SCH (08:39)
[2018-08-16] MEDS ORDERED: HYDROmorphone 1 MG/ML Syringe IVPUSH ONE (08:51)
[2018-08-16] MEDS ORDERED: HYDROmorphone 1 MG/ML Syringe IVPUSH PRN (08:52)
[2018-08-16] MEDS ORDERED: Diatrizoate Meglumine/Diatrizoate Sodium 37% 120 ML Bottle PO ONE (09:43)
[2018-08-16] MEDS ORDERED: Sodium Chloride 0.9% 10 ML Syringe FLUSH ONE (09:43)
[2018-08-16] MEDS ORDERED: Iopamidol 755 Mg/ML 100 ML Bottle IVPUSH ONE (09:43)
[2018-08-16] MEDS ORDERED: Sodium Chloride 0.9% 100 ML IV SCH (09:45)
--- NOTE | 2018-08-16 10:50 | CT ---
CT abdomen and pelvis Technique: Multiple axial sections were obtained from above the dome of the diaphragm inferiorly through the pubic symphysis. Intravenous and oral contrast was utilized. Comparison: Prior limited abdominal ultrasound of 08/15/18, no previous CT abdomen or pelvis exam. Findings: Inflammatory change is seen around the pancreas. Small amount of fluid is seen within the left paracolic gutter. Minimal fluid is seen within the pelvis. Findings are compatible with pancreatitis. Atelectasis is noted within both lung bases. Liver shows no focal abnormality. Gallbladder contains no gallstones. Spleen appears within normal limits. Small hiatal hernia is noted. Adrenal glands show no nodule. Aorta shows mild atherosclerotic change which continues in the iliac vessels without aneurysm. Kidneys show symmetric contrast enhancement. No retroperitoneal adenopathy is seen. No mesenteric abnormalities are seen. No pelvic mass or adenopathy is seen. Appendix is seen and is felt to be within normal limits in size. Bone window settings were reviewed which shows incidental limbus vertebra within the anterior and superior endplate of L4. Slight Schmorl node deformities are seen. Minimal degenerative change is noted. Impression: 1. Inflammatory change around the pancreas compatible with pancreatitis. 2. Bibasilar atelectasis. 3. Other incidental findings. Diagnostic code #3
[2018-08-16] MEDS: fentaNYL 12 MCG/HR Transdermal Patch TRDERM SCH (12:51)
--- NOTE | 2018-08-16 14:36 | PCM.PN ---
- General Info Date of Service: 08/16/18 Admission Dx/Problem (Free Text): Admission Diagnosis/Problem Admission Diagnosis/Problem Pancreatitis due to biliary obstruction Subjective Update: In to see Eric. He is in a lot of pain and states it is like a cramping that comes and goes. I explained that his labs came back elevated and he now has pancreatitis. We will keep him for symptomatic treatment. He states he understands and agrees with this plan. Discussed case with Dr. Reina and he went to see the patient as well. He also agrees with this being pancreatitis and recommends CT Abdomen. The CT shows acute pancreatitis. Other than epigastric/RUQ pain and nausea, pt has no other complaints at this time. No other concerns from nursing. Regarding his bradycardia, I discussed that it is not normal to have a pulse inthe 20's-40's and that he should f/u with cardiology after D/C. He states he understands. Functional Status: Reports: Pain Controlled. Denies: Tolerating Diet (NPO), Ambulating (too much pain to ambulate), Urinating (having difficulty urinating) - Review of Systems General: Reports: No Symptoms. Denies: Fever, Chills HEENT: Reports: No Symptoms Pulmonary: Reports: Shortness of Breath (difficulty breathing d/t pain in abdomen with inspiration). Denies: Cough Cardiovascular: Denies: Chest Pain Gastrointestinal: Reports: Abdominal Pain (epigastric and RUQ), Nausea. Denies : Constipation, Diarrhea, Vomiting (dry heaves) Genitourinary: Reports: Retention. Denies: Dysuria, Frequency, Burning, Pain, Incontinence, Hematuria Musculoskeletal: Reports: No Symptoms Skin: Reports: No Symptoms Neurological: Reports: Difficulty Walking (d/t abdominal pain) Psychiatric: Reports: No Symptoms - Patient Data Vitals - Most Recent: Last Vital Signs Temp 98.1 F 08/16/18 05:01 Pulse 37 L 08/16/18 05:01 Resp 18 08/16/18 05:01 BP 146/65 H 08/16/18 05:01 Pulse Ox 92 L 08/16/18 06:43 Weight - Most Recent: 241 lb 2 oz I&O - Last 24 Hours: Intake & Output 08/15/18 08/16/18 08/16/18 22:59 06:59 14:59 Intake Total 930 Balance 930 Lab Results Last 24 Hours: Laboratory Results - last 24 hr 08/15/18 08/16/18 08/16/18 Range/Units 22:50 05:07 05:10 WBC (4.23-9.07) K/mm3 RBC (4.63-6.08) M/mm3 Hgb (13.7-17.5) gm/L Hct (40.1-51.0) % MCV (79.0-92.2) fl MCH (25.7-32.2) pg MCHC (32.2-35.5) g/dl RDW Std Deviation (35.1-43.9) fL Plt Count (163-337) K/mm3 MPV (9.4-12.3) fl Neut % (Auto) (34.0-67.9) % Lymph % (Auto) (21.8-53.1) % [place] % (Auto) (5.3-12.2) % Eos % (Auto) (0.8-7.0) Baso % (Auto) (0.1-1.2) % Neut # (Auto) (1.78-5.38) K/mm3 Lymph # (Auto) (1.32-3.57) K/mm3 [place] # (Auto) (0.30-0.82) K/mm3 Eos # (Auto) (0.04-0.54) K/mm3 Baso # (Auto) (0.01-0.08) K/mm3 Manual Slide Review Sodium 141 (136-145) mEq/L Potassium 4.9 (3.5-5.1) mEq/L Chloride 106 (98-107) mEq/L Carbon Dioxide 21 (21-32) mEq/L Anion Gap 18.9 H (5-15) BUN 22 H (7-18) mg/dL Creatinine 1.5 H (0.7-1.3) mg/dL Est Cr Clr Drug Dosing 61.89 mL/min Estimated GFR (MDRD) 47 (>60) mL/min BUN/Creatinine Ratio 14.7 (14-18) Glucose 200 H (80-115) mg/dL POC Glucose 209 H 177 H (80-115) mg/dL Calcium 9.5 (8.5-10.1) mg/dL Magnesium 2.0 (1.8-2.4) mg/dl Total Bilirubin 2.1 H (0.2-1.0) mg/dL GGT 152 H (15-85) U/L AST 19 (15-37) U/L ALT 28 (16-63) U/L Alkaline Phosphatase 133 H (46-116) U/L C-Reactive Protein 3.1 H* (<1.0) mg/dL Total Protein 7.9 (6.4-8.2) g/dl Albumin 3.7 (3.4-5.0) g/dl Globulin 4.2 gm/dL Albumin/Globulin Ratio 0.9 L (1-2) Amylase 1219 H* (25-115) U/L Lipase 71212 H (73-393) U/L Urine Color (Yellow) Urine Appearance (Clear) Urine pH (5.0-8.0) Ur Specific [place] (1.005-1.030) Urine Protein (Negative) Urine Glucose (UA) (Negative) Urine Ketones (Negative) Urine Occult Blood (Negative) Urine Nitrite (Negative) Urine Bilirubin (Negative) Urine Urobilinogen (0.2-1.0) Ur Leukocyte Esterase (Negative) Urine RBC (0-5) /hpf Urine WBC (0-5) /hpf Ur Epithelial Cells (0-5) /hpf Urine Bacteria (FEW) /hpf Urine Mucus (FEW) /hpf H. pylori IgG Antibody (NEGATIVE) 08/16/18 08/16/18 08/16/18 Range/Units 05:10 05:10 11:50 WBC 19.11 H (4.23-9.07) K/mm3 RBC 5.03 (4.63-6.08) M/mm3 Hgb 15.6 (13.7-17.5) gm/L Hct 48.0 (40.1-51.0) % MCV 95.4 H (79.0-92.2) fl MCH 31.0 (25.7-32.2) pg MCHC 32.5 (32.2-35.5) g/dl RDW Std Deviation 45.8 H (35.1-43.9) fL Plt Count 218 (163-337) K/mm3 MPV 10.7 (9.4-12.3) fl Neut % (Auto) 89.7 H (34.0-67.9) % Lymph % (Auto) 3.7 L (21.8-53.1) % [place] % (Auto) 6.3 (5.3-12.2) % Eos % (Auto) 0 L (0.8-7.0) Baso % (Auto) 0.1 (0.1-1.2) % Neut # (Auto) 17.14 H (1.78-5.38) K/mm3 Lymph # (Auto) 0.71 L (1.32-3.57) K/mm3 [place] # (Auto) 1.21 H (0.30-0.82) K/mm3 Eos # (Auto) 0.00 L (0.04-0.54) K/mm3 Baso # (Auto) 0.01 (0.01-0.08) K/mm3 Manual Slide Review Abnormal smear Sodium (136-145) mEq/L Potassium (3.5-5.1) mEq/L Chloride (98-107) mEq/L Carbon Dioxide (21-32) mEq/L Anion Gap (5-15) BUN (7-18) mg/dL Creatinine (0.7-1.3) mg/dL Est Cr Clr Drug Dosing mL/min Estimated GFR (MDRD) (>60) mL/min BUN/Creatinine Ratio (14-18) Glucose (80-115) mg/dL POC Glucose (80-115) mg/dL Calcium (8.5-10.1) mg/dL Magnesium (1.8-2.4) mg/dl Total Bilirubin (0.2-1.0) mg/dL GGT (15-85) U/L AST (15-37) U/L ALT (16-63) U/L Alkaline Phosphatase (46-116) U/L C-Reactive Protein (<1.0) mg/dL Total Protein (6.4-8.2) g/dl Albumin (3.4-5.0) g/dl Globulin gm/dL Albumin/Globulin Ratio (1-2) Amylase (25-115) U/L Lipase (73-393) U/L Urine Color Yellow (Yellow) Urine Appearance Clear (Clear) Urine pH 6.0 (5.0-8.0) Ur Specific [place] > or = 1.030 (1.005-1.030) Urine Protein 1+ H (Negative) Urine Glucose (UA) Negative (Negative) Urine Ketones Trace H (Negative) Urine Occult Blood Negative (Negative) Urine Nitrite Negative (Negative) Urine Bilirubin Negative (Negative) Urine Urobilinogen 0.2 (0.2-1.0) Ur Leukocyte Esterase Negative (Negative) Urine RBC 0-5 (0-5) /hpf Urine WBC 0-5 (0-5) /hpf Ur Epithelial Cells 0-5 (0-5) /hpf Urine Bacteria Few (FEW) /hpf Urine Mucus Few (FEW) /hpf H. pylori IgG Antibody Negative (NEGATIVE) Med Orders - Current: Current Medications Acetaminophen (Tylenol) 650 mg PO Q4H PRN PRN Reason: Pain (Mild 1-3)/fever Bisacodyl (Dulcolax) 5 mg PO DAILY PRN PRN Reason: Constipation Docusate Sodium (Colace) 100 mg PO BID PRN PRN Reason: Constipation Enoxaparin Sodium (Lovenox) 40 mg SUBCUT Q24H [facility] Fentanyl (Duragesic) 12 mcg TRDERM Q72H [facility] Last Admin: 08/16/18 12:51 Dose: 12 mcg Hydromorphone HCl (Dilaudid) 1 mg IVPUSH Q4H PRN PRN Reason: Pain Dextrose/Sodium Chloride (Dextrose 5%-Normal Saline) 1,000 mls @ 75 mls/hr IV ASDIRECTED [facility] Last Admin: 08/16/18 12:29 Dose: 75 mls/hr Sodium Chloride (Normal Saline) 100 mls @ 60 mls/hr IV ASDIRECTED [facility] Last Admin: 08/16/18 10:15 Dose: 60 mls/hr Ketorolac Tromethamine (Toradol) 30 mg IV Q6H PRN PRN Reason: Pain (moderate 4-6) Stop: 08/20/18 21:01 Last Admin: 08/16/18 13:00 Dose: 30 mg Magnesium Hydroxide (Milk Of Magnesia) 30 ml PO Q12H PRN PRN Reason: Constipation Miscellaneous Information (Remove Patch) 1 ea TRDERM Q72H [facility] Ondansetron HCl (Zofran Odt) 4 mg PO Q4H PRN PRN Reason: nausea, able to take PO Ondansetron HCl (Zofran) 4 mg IV Q4H PRN PRN Reason: Nausea/Vomiting Last Admin: 08/16/18 10:50 Dose: 4 mg Pantoprazole Sodium (Protonix Iv) 40 mg IVPUSH DAILY [facility] Last Admin: 08/16/18 08:39 Dose: 40 mg Polyethylene Glycol (Miralax) 17 gm PO DAILY PRN PRN Reason: Constipation Senna/Docusate Sodium (Senna Plus) 1 tab PO BID PRN PRN Reason: Constipation Discontinued Medications Diatrizoate Meglum/Diatrizoate Sod (Gastrografin 37%) 90 ml PO ONETIME ONE Stop: 08/16/18 09:44 Last Admin: 08/16/18 10:14 Dose: 90 ml Dicyclomine HCl (Bentyl) 20 mg PO ONETIME ONE Stop: 08/15/18 18:21 Last Admin: 08/15/18 20:16 Dose: 20 mg Hydromorphone HCl (Dilaudid) 1 mg IVPUSH ONETIME ONE Stop: 08/15/18 12:59 Last Admin: 08/15/18 13:04 Dose: 1 mg Hydromorphone HCl (Dilaudid) 1 mg IVPUSH ONETIME ONE Stop: 08/15/18 16:59 Last Admin: 08/15/18 17:30 Dose: 1 mg Hydromorphone HCl (Dilaudid) 0.5 mg IVPUSH Q2H PRN PRN Reason: Pain (severe 7-10) Last Admin: 08/16/18 08:32 Dose: 0.5 mg Hydromorphone HCl (Dilaudid) 2 mg IVPUSH ONETIME ONE Stop: 08/16/18 08:52 Last Admin: 08/16/18 09:05 Dose: 2 mg Hydromorphone HCl (Dilaudid) 1 mg IVPUSH Q2H PRN PRN Reason: Pain Hyoscyamine (Hyomax-Sl) 0.125 mg SL ONETIME ONE Stop: 08/15/18 18:21 Last Admin: 08/15/18 20:16 Dose: 0.125 mg Dextrose/Sodium Chloride (Dextrose 5%-Normal Saline) 1,000 mls @ 250 mls/hr IV ASDIRECTED [facility] Last Admin: 08/15/18 12:55 Dose: 250 mls/hr Dextrose/Sodium Chloride (Dextrose 5%-Normal Saline) 1,000 mls @ 150 mls/hr IV ASDIRECTED [facility] Last Admin: 08/15/18 17:28 Dose: 150 mls/hr Iopamidol (Isovue-370 (76%)) 100 ml IVPUSH ONETIME ONE Stop: 08/16/18 09:44 Last Admin: 08/16/18 10:14 Dose: 100 ml Ketorolac Tromethamine (Toradol) 30 mg IVPUSH ONETIME [facility] Last Admin: 08/15/18 15:05 Dose: 30 mg Metoclopramide HCl (Reglan) 10 mg IVPUSH ONETIME ONE Stop: 08/15/18 16:59 Last Admin: 08/15/18 17:28 Dose: 10 mg Ondansetron HCl (Zofran) 4 mg IVPUSH ONETIME ONE Stop: 08/15/18 12:41 Last Admin: 08/15/18 12:55 Dose: 4 mg Sodium Chloride (Saline Flush) 10 ml FLUSH ONETIME ONE Stop: 08/16/18 09:44 Last Admin: 08/16/18 10:14 Dose: 10 ml - Exam Quality Assessment: Supplemental Oxygen (1L NC), Urine Catheter, DVT Prophylaxis General: Alert, Oriented, Cooperative, Moderate Distress HEENT: Pupils Equal, Pupils Reactive, EOMI, Mucous Membr. Moist/[place] Neck: Supple Lungs: Clear to Auscultation, Normal Respiratory Effort Cardiovascular: Regular Rate, Regular Rhythm GI/Abdominal Exam: Soft, Non-Tender, No Organomegaly, No Distention, No Abnormal Bruit, No Mass, Pelvis Stable, Abnormal Bowel Sounds (hypoactive) (Male) Exam: Deferred Back Exam: Normal Inspection, Full Range of Motion Extremities: Normal Inspection, Normal Range of Motion, Non-Tender, No Pedal Edema, Normal Capillary Refill Peripheral Pulses: 2+: Posterior Tibial (L), Posterior Tibial (R), Dorsalis Pedis (L), Dorsalis Pedis (R) Skin: Warm, Dry, Intact Neurological: No New Focal Deficit Psy/Mental Status: Alert, Normal Affect, Normal Mood - Problem List & Annotations (1) Abdominal pain SNOMED Code(s): 39331898 Code(s): R10.9 - UNSPECIFIED ABDOMINAL PAIN Status: Acute Priority: High Current Visit: Yes Qualifiers: Abdominal location: right upper quadrant Qualified Code(s): R10.11 - Right upper quadrant pain (2) Biliary colic SNOMED Code(s): 03074251 Code(s): K80.50 - CALCULUS OF BILE DUCT W/O CHOLANGITIS OR CHOLECYST W/O OBST Status: Acute Priority: High Current Visit: Yes (3) Bradycardia by electrocardiogram SNOMED Code(s): 832446128 Code(s): R00.1 - BRADYCARDIA, UNSPECIFIED Status: Acute Priority: High Current Visit: Yes (4) Pancreatitis, acute SNOMED Code(s): 599717387 Code(s): K85.90 - ACUTE PANCREATITIS WITHOUT NECROSIS OR INFECTION, UNSP Status: Acute Priority: High Current Visit: Yes Qualifiers: Pancreatitis type: unspecified pancreatitis type Acute pancreatitis complication: unspecified Qualified Code(s): K85.90 - Acute pancreatitis without necrosis or infection, unspecified - Problem List Review Problem List Initiated/Reviewed/Updated: Yes - My Orders Last 24 Hours: My Active Orders 08/15/18 18:40 EKG 12 Lead [EK] Routine 08/15/18 19:45 Height and Weight [RC] 04 March Shower [RC] ASDIRECTED Oxygen Therapy [RC] PRN Up ad Tricia [RC] ASDIRECTED VTE/DVT Education [RC] DAILY Vital Signs [RC] Q4HR Consult to Physician [CONS] Routine Acetaminophen [Tylenol] 650 mg PO Q4H PRN Bisacodyl [Dulcolax] 5 mg PO DAILY PRN Docusate Sodium [Colace] 100 mg PO BID PRN Docusate Sodium/Sennosides [Senna Plus] 1 tab PO BID PRN Magnesium Hydroxide [Milk of Magnesia] 30 ml PO Q12H PRN Ondansetron [Zofran ODT] 4 mg PO Q4H PRN Ondansetron [Zofran] 4 mg IV Q4H PRN Polyethylene Glycol 3350 [MiraLAX] 17 gm PO DAILY PRN 08/15/18 19:48 Intake and Output [RC] 04,16 08/15/18 19:55 Notify Provider Consults [RC] ASDIRECTED 08/15/18 19:58 Code Status [Resuscitation Status] Routine 08/15/18 20:03 Ambulate [RC] ASDIRECTED 08/15/18 21:00 Ketorolac [Toradol] 30 mg IV Q6H PRN 08/15/18 21:11 Blood Glucose Check, Bedside [RC] Q6HR 08/15/18 Dinner Nothing per Oral Now Diet [DIET] 08/16/18 09:00 Pantoprazole [ProTONIX IV] 40 mg IVPUSH DAILY 08/16/18 11:50 CULTURE URINE [RM] Routine 08/17/18 05:11 C-REACTIVE PROTEIN [CHEM] AM CBC WITH AUTO DIFF [HEME] AM COMPREHENSIVE METABOLIC PN,CMP [CHEM] AM MAGNESIUM [CHEM] AM 08/18/18 05:11 C-REACTIVE PROTEIN [CHEM] AM CBC WITH AUTO DIFF [HEME] AM COMPREHENSIVE METABOLIC PN,CMP [CHEM] AM MAGNESIUM [CHEM] AM 08/19/18 05:11 C-REACTIVE PROTEIN [CHEM] AM CBC WITH AUTO DIFF [HEME] AM COMPREHENSIVE METABOLIC PN,CMP [CHEM] AM MAGNESIUM [CHEM] AM 08/19/18 12:30 Remove Patch 1 ea TRDERM Q72H 08/20/18 05:11 C-REACTIVE PROTEIN [CHEM] AM CBC WITH AUTO DIFF [HEME] AM COMPREHENSIVE METABOLIC PN,CMP [CHEM] AM MAGNESIUM [CHEM] AM - Plan Plan:: I/P: Acute: Acute Pancreatitis * RUQ pain, N/V Started at 0500 after breakfast, has been increasing * Similar symptoms in December; was diagnosed with PUD * TTP RUQ, Guarding, Positive Ontiveros's sign * WBC 12.4--> 19.11, CRP 0.6--> 3.1 * Bilirubin 1.8--> 2.1, GGT 170--> 152, Alk phos 134--> 133 * Gallbladder U/S in ED shows nothing acute * Consulted General Surgeon Dr. Reina: * Repeat CMP, GGT, Amylase and Lipase in AM * Will come to see the pt in the AM --> believes this is pancreatitis; recommends CT Abdomen * NPO diet * CT Abdomen/Pelvis: * 1. Inflammatory change around the pancreas compatible with pancreatitis. * 2. Bibasilar atelectasis. * 3. Other incidental findings * IVF * Pain management PRN Bradycardia * HR ranges from 20's to 40's * Normal per pt; Asymptomatic * EKG--> bradycardia * Schedule f/u with sequins winder oupt after D/C * Consider Holter monitor at D/C Urinary Obstruction/Anuria * U/A negative for UTI * Flomax * Urinary Catheter for strict I's+O's Chronic: Bradycardia Syncope--> states this was 20 years ago after he broke his wrist; no recent episodes PUD--> H pylori negative h/o CVA Plan: Admitted to medical floor He remains stable Other orders as indicated above Routine AM labs NPO except ice chips DVT Prophylaxis: Ambulation GI Prophylaxis: Protonix Code Status: Full Code; PCP: Dr. Ismael Esteban D/C Plan: * Schedule f/u with cardiology outpt regarding bradycardia * Consider Holter monitor after D/C
[2018-08-16] MEDS ORDERED: Promethazine 12.5 MG in Sodium Chloride 0.9% 50 ML IV PRN (15:01)
[2018-08-16] MEDS: HYDROmorphone 1 MG/ML Syringe IVPUSH PRN ×2 (16:18→20:35)
[2018-08-16] MEDS: Tamsulosin 0.4 MG Cap.ER PO SCH (18:07)
[2018-08-16] MEDS: Enoxaparin 40 MG/0.4 ML Syringe SUBCUT SCH (18:07)
[2018-08-16] MEDS: Dextrose 5%-0.9% NaCl 1,000 ML IV SCH (22:49)
[2018-08-17] MEDS: HYDROmorphone 1 MG/ML Syringe IVPUSH PRN (02:13)
[2018-08-17] MEDS: Ketorolac 30 MG/ML SDV IV PRN ×2 (04:57→09:47)
[2018-08-17] MEDS: Dextrose 5%-0.9% NaCl 1,000 ML IV SCH ×3 (06:49→23:44)
[2018-08-17] MEDS: Pantoprazole 40 MG Vial IVPUSH SCH (09:09)
[2018-08-17] MEDS: Tamsulosin 0.4 MG Cap.ER PO SCH ×2 (09:09→17:56)
[2018-08-17] MEDS ORDERED: Ketorolac 60 MG/2 ML SDV IM ONE (12:12)
[2018-08-17] MEDS ORDERED: Ketorolac 30 MG/ML SDV IV SCH (12:15)
[2018-08-17] MEDS ORDERED: HYDROmorphone 1 MG/ML Syringe IVPUSH PRN (16:58)
--- NOTE | 2018-08-17 17:46 | PCM.PN ---
- General Info Date of Service: 08/17/18 Functional Status: Reports: Pain Controlled, Ambulating, Urinating - Review of Systems General: Reports: No Symptoms HEENT: Reports: No Symptoms Pulmonary: Reports: No Symptoms Cardiovascular: Reports: No Symptoms Gastrointestinal: Reports: No Symptoms Genitourinary: Reports: No Symptoms Musculoskeletal: Reports: No Symptoms Skin: Reports: No Symptoms Neurological: Reports: No Symptoms Psychiatric: Reports: No Symptoms - Patient Data Vitals - Most Recent: Last Vital Signs Temp 36.7 C 08/17/18 15:11 Pulse 53 L 08/17/18 15:11 Resp 16 08/17/18 15:11 BP 115/64 08/17/18 15:11 Pulse Ox 91 L 08/17/18 15:11 Weight - Most Recent: 97.114 kg I&O - Last 24 Hours: Intake & Output 08/17/18 08/17/18 08/17/18 06:59 14:59 22:59 Intake Total 1333 390 Output Total 800 1000 Balance 533 -610 Lab Results Last 24 Hours: Laboratory Results - last 24 hr 08/16/18 08/17/18 08/17/18 Range/Units 17:35 05:47 05:47 WBC 20.34 H (4.23-9.07) K/mm3 RBC 4.85 (4.63-6.08) M/mm3 Hgb 15.1 (13.7-17.5) gm/L Hct 46.7 (40.1-51.0) % MCV 96.3 H (79.0-92.2) fl MCH 31.1 (25.7-32.2) pg MCHC 32.3 (32.2-35.5) g/dl RDW Std Deviation 47.8 H (35.1-43.9) fL Plt Count 176 (163-337) K/mm3 MPV 10.3 (9.4-12.3) fl Neut % (Auto) 89.4 H (34.0-67.9) % Lymph % (Auto) 4.0 L (21.8-53.1) % Eddy % (Auto) 6.3 (5.3-12.2) % Eos % (Auto) 0 L (0.8-7.0) Baso % (Auto) 0.0 L (0.1-1.2) % Neut # (Auto) 18.16 H (1.78-5.38) K/mm3 Lymph # (Auto) 0.82 L (1.32-3.57) K/mm3 Eddy # (Auto) 1.28 H (0.30-0.82) K/mm3 Eos # (Auto) 0.00 L (0.04-0.54) K/mm3 Baso # (Auto) 0.01 (0.01-0.08) K/mm3 Manual Slide Review Abnormal smear Sodium 140 (136-145) mEq/L Potassium 4.9 (3.5-5.1) mEq/L Chloride 109 H (98-107) mEq/L Carbon Dioxide 24 (21-32) mEq/L Anion Gap 11.9 (5-15) BUN 26 H (7-18) mg/dL Creatinine 1.3 (0.7-1.3) mg/dL Est Cr Clr Drug Dosing 71.41 mL/min Estimated GFR (MDRD) 56 (>60) mL/min BUN/Creatinine Ratio 20.0 H (14-18) Glucose 135 H (80-115) mg/dL POC Glucose 131 H (80-115) mg/dL Calcium 8.5 (8.5-10.1) mg/dL Magnesium 2.0 (1.8-2.4) mg/dl Total Bilirubin 2.6 H (0.2-1.0) mg/dL AST 23 (15-37) U/L ALT 15 L (16-63) U/L Alkaline Phosphatase 101 (46-116) U/L C-Reactive Protein 25.5 H* (<1.0) mg/dL Total Protein 6.7 (6.4-8.2) g/dl Albumin 3.0 L (3.4-5.0) g/dl Globulin 3.7 gm/dL Albumin/Globulin Ratio 0.8 L (1-2) Triglycerides 78 (<150) mg/dL Cholesterol 113 (<200) mg/dL LDL Cholesterol Direct 81 (<100) mg/dL HDL Cholesterol 29.0 L (40-59) mg/dL 08/17/18 08/17/18 Range/Units 06:48 11:35 WBC (4.23-9.07) K/mm3 RBC (4.63-6.08) M/mm3 Hgb (13.7-17.5) gm/L Hct (40.1-51.0) % MCV (79.0-92.2) fl MCH (25.7-32.2) pg MCHC (32.2-35.5) g/dl RDW Std Deviation (35.1-43.9) fL Plt Count (163-337) K/mm3 MPV (9.4-12.3) fl Neut % (Auto) (34.0-67.9) % Lymph % (Auto) (21.8-53.1) % Eddy % (Auto) (5.3-12.2) % Eos % (Auto) (0.8-7.0) Baso % (Auto) (0.1-1.2) % Neut # (Auto) (1.78-5.38) K/mm3 Lymph # (Auto) (1.32-3.57) K/mm3 Eddy # (Auto) (0.30-0.82) K/mm3 Eos # (Auto) (0.04-0.54) K/mm3 Baso # (Auto) (0.01-0.08) K/mm3 Manual Slide Review Sodium (136-145) mEq/L Potassium (3.5-5.1) mEq/L Chloride (98-107) mEq/L Carbon Dioxide (21-32) mEq/L Anion Gap (5-15) BUN (7-18) mg/dL Creatinine (0.7-1.3) mg/dL Est Cr Clr Drug Dosing mL/min Estimated GFR (MDRD) (>60) mL/min BUN/Creatinine Ratio (14-18) Glucose (80-115) mg/dL POC Glucose 126 H 118 H (80-115) mg/dL Calcium (8.5-10.1) mg/dL Magnesium (1.8-2.4) mg/dl Total Bilirubin (0.2-1.0) mg/dL AST (15-37) U/L ALT (16-63) U/L Alkaline Phosphatase (46-116) U/L C-Reactive Protein (<1.0) mg/dL Total Protein (6.4-8.2) g/dl Albumin (3.4-5.0) g/dl Globulin gm/dL Albumin/Globulin Ratio (1-2) Triglycerides (<150) mg/dL Cholesterol (<200) mg/dL LDL Cholesterol Direct (<100) mg/dL HDL Cholesterol (40-59) mg/dL Juvenal Results Last 24 Hours: Microbiology 08/16/18 11:50 Urine Culture - Preliminary Urine, Catheterized NO GROWTH AFTER 1 DAY Med Orders - Current: Current Medications Acetaminophen (Tylenol) 650 mg PO Q4H PRN PRN Reason: Pain (Mild 1-3)/fever Hydrocodone Bitart/Acetaminophen ([place] 325-5 Mg) 1 tab PO Q6H PRN PRN Reason: Pain Bisacodyl (Dulcolax) 5 mg PO DAILY PRN PRN Reason: Constipation Docusate Sodium (Colace) 100 mg PO BID PRN PRN Reason: Constipation Enoxaparin Sodium (Lovenox) 40 mg SUBCUT Q24H [facility] Last Admin: 08/16/18 18:07 Dose: 40 mg Fentanyl (Duragesic) 12 mcg TRDERM Q72H [facility] Last Admin: 08/16/18 12:51 Dose: 12 mcg Hydromorphone HCl (Dilaudid) 1 mg IVPUSH Q8HR PRN PRN Reason: Pain Promethazine HCl 12.5 mg/ (Sodium Chloride) 50.5 mls @ 100 mls/hr IV Q6H PRN PRN Reason: Nausea Dextrose/Sodium Chloride (Dextrose 5%-Normal Saline) 1,000 mls @ 125 mls/hr IV ASDIRECTED [facility] Last Admin: 08/17/18 15:35 Dose: 125 mls/hr Ketorolac Tromethamine (Toradol) 30 mg IV Q6H [facility] Stop: 08/20/18 21:01 Magnesium Hydroxide (Milk Of Magnesia) 30 ml PO Q12H PRN PRN Reason: Constipation Miscellaneous Information (Remove Patch) 1 ea TRDERM Q72H [facility] Ondansetron HCl (Zofran Odt) 4 mg PO Q4H PRN PRN Reason: nausea, able to take PO Ondansetron HCl (Zofran) 4 mg IV Q4H PRN PRN Reason: Nausea/Vomiting Last Admin: 08/16/18 10:50 Dose: 4 mg Pantoprazole Sodium (Protonix Iv) 40 mg IVPUSH DAILY [facility] Last Admin: 08/17/18 09:09 Dose: 40 mg Polyethylene Glycol (Miralax) 17 gm PO DAILY PRN PRN Reason: Constipation Senna/Docusate Sodium (Senna Plus) 1 tab PO BID PRN PRN Reason: Constipation [facility] Last Admin: 08/17/18 09:09 Dose: 0.4 mg Discontinued Medications Diatrizoate Meglum/Diatrizoate Sod (Gastrografin 37%) 90 ml PO ONETIME ONE Stop: 08/16/18 09:44 Last Admin: 08/16/18 10:14 Dose: 90 ml Dicyclomine HCl (Bentyl) 20 mg PO ONETIME ONE Stop: 08/15/18 18:21 Last Admin: 08/15/18 20:16 Dose: 20 mg Hydromorphone HCl (Dilaudid) 1 mg IVPUSH ONETIME ONE Stop: 08/15/18 12:59 Last Admin: 08/15/18 13:04 Dose: 1 mg Hydromorphone HCl (Dilaudid) 1 mg IVPUSH ONETIME ONE Stop: 08/15/18 16:59 Last Admin: 08/15/18 17:30 Dose: 1 mg Hydromorphone HCl (Dilaudid) 0.5 mg IVPUSH Q2H PRN PRN Reason: Pain (severe 7-10) Last Admin: 08/16/18 08:32 Dose: 0.5 mg Hydromorphone HCl (Dilaudid) 2 mg IVPUSH ONETIME ONE Stop: 08/16/18 08:52 Last Admin: 08/16/18 09:05 Dose: 2 mg Hydromorphone HCl (Dilaudid) 1 mg IVPUSH Q2H PRN PRN Reason: Pain Hydromorphone HCl (Dilaudid) 1 mg IVPUSH Q4H PRN PRN Reason: Pain Last Admin: 08/17/18 02:13 Dose: 1 mg Hyoscyamine (Hyomax-Sl) 0.125 mg SL ONETIME ONE Stop: 08/15/18 18:21 Last Admin: 08/15/18 20:16 Dose: 0.125 mg Dextrose/Sodium Chloride (Dextrose 5%-Normal Saline) 1,000 mls @ [facility] Last Admin: 08/15/18 12:55 Dose: 250 mls/hr Dextrose/Sodium Chloride (Dextrose 5%-Normal Saline) 1,000 mls @ 150 mls/hr IV ASDIRECTED [facility] Last Admin: 08/15/18 17:28 Dose: 150 mls/hr Dextrose/Sodium Chloride (Dextrose 5%-Normal Saline) 1,000 mls @ 125 mls/hr IV ASDIRECTED [facility] Last Admin: 08/16/18 12:29 Dose: 75 mls/hr Sodium Chloride (Normal Saline) 100 mls @ 60 mls/hr IV ASDIRECTED [facility] Last Admin: 08/16/18 10:15 Dose: 60 mls/hr Iopamidol (Isovue-370 (76%)) 100 ml IVPUSH ONETIME ONE Stop: 08/16/18 09:44 Last Admin: 08/16/18 10:14 Dose: 100 ml Ketorolac Tromethamine (Toradol) 30 mg IVPUSH ONETIME [facility] Last Admin: 08/15/18 15:05 Dose: 30 mg Ketorolac Tromethamine (Toradol) 30 mg IV Q6H PRN PRN Reason: Pain (moderate 4-6) Stop: 08/20/18 21:01 Last Admin: 08/17/18 09:47 Dose: 30 mg Ketorolac Tromethamine (Toradol) 60 mg IM ONETIME ONE Stop: 08/17/18 12:13 Last Admin: 08/17/18 13:02 Dose: 60 mg Ketorolac Tromethamine (Toradol) 30 mg IV Q6H [facility] Stop: 08/20/18 21:01 Metoclopramide HCl (Reglan) 10 mg IVPUSH ONETIME ONE Stop: 08/15/18 16:59 Last Admin: 08/15/18 17:28 Dose: 10 mg Ondansetron HCl (Zofran) 4 mg IVPUSH ONETIME ONE Stop: 08/15/18 12:41 Last Admin: 08/15/18 12:55 Dose: 4 mg Sodium Chloride (Saline Flush) 10 ml FLUSH ONETIME ONE Stop: 08/16/18 09:44 Last Admin: 08/16/18 10:14 Dose: 10 ml - Exam Quality Assessment: DVT Prophylaxis General: Alert, Oriented, Cooperative, No Acute Distress HEENT: Pupils Equal, Pupils Reactive, EOMI Neck: Trachea Midline, No JVD Lungs: Clear to Auscultation, Normal Respiratory Effort Cardiovascular: Regular Rate, Regular Rhythm, Bradycardia GI/Abdominal Exam: Normal Bowel Sounds, Soft, No Organomegaly, No Distention, Tender (Male) Exam: Deferred Back Exam: Normal Inspection Extremities: Normal Inspection, Non-Tender, Normal Capillary Refill Skin: Warm Neurological: No New Focal Deficit Psy/Mental Status: Alert, Normal Affect, Normal Mood - Problem List Review Problem List Initiated/Reviewed/Updated: Yes - My Orders Last 24 Hours: My Active Orders 08/16/18 18:00 Enoxaparin [Lovenox] 40 mg SUBCUT Q24H 08/17/18 09:35 Incentive Spirometry [RT Incentive Spirometry] [RC] ASDIRECTED 08/17/18 16:57 Acetaminophen/HYDROcodone [[place] 325-5 MG] 1 tab PO Q6H PRN 08/17/18 16:58 HYDROmorphone [Dilaudid] 1 mg IVPUSH Q8HR PRN 08/17/18 18:00 Ketorolac [Toradol] 30 mg IV Q6H 08/17/18 Lunch Clear Liquid Diet [DIET] 08/18/18 05:00 AMYLASE [CHEM] DAILY LIPASE [CHEM] DAILY 08/19/18 05:00 AMYLASE [CHEM] DAILY LIPASE [CHEM] DAILY 08/20/18 05:00 AMYLASE [CHEM] DAILY LIPASE [CHEM] DAILY 08/21/18 05:00 AMYLASE [CHEM] DAILY LIPASE [CHEM] DAILY - Plan Plan:: I/P: Acute: Acute Pancreatitis-->clear liquids today; chnage to scheduled toradol/po pain meds. * RUQ pain, N/V Started at 0500 after breakfast, has been increasing * Similar symptoms in December; was diagnosed with PUD * TTP RUQ, Guarding, Positive Ontiveros's sign * WBC 12.4--> 19.11, CRP 0.6--> 3.1 * Bilirubin 1.8--> 2.1, GGT 170--> 152, Alk phos 134--> 133 * Gallbladder U/S in ED shows nothing acute * Consulted General Surgeon Dr. Reina: * Repeat CMP, GGT, Amylase and Lipase in AM * Will come to see the pt in the AM --> believes this is pancreatitis; recommends CT Abdomen * NPO diet * CT Abdomen/Pelvis: * 1. Inflammatory change around the pancreas compatible with pancreatitis. * 2. Bibasilar atelectasis. * 3. 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 Ismael Esteban D/C Plan: * Schedule f/u with cardiology outpt regarding bradycardia * Consider Holter monitor after D/C
[2018-08-17] MEDS: Enoxaparin 40 MG/0.4 ML Syringe SUBCUT SCH (17:58)
[2018-08-17] MEDS: Ketorolac 30 MG/ML SDV IV SCH ×2 (17:58→23:45)
[2018-08-17] MEDS: Acetaminophen/HYDROcodone 325-5 MG Tab PO PRN (20:50)
[2018-08-18] MEDS: Ketorolac 30 MG/ML SDV IV SCH ×2 (05:04→11:48)
[2018-08-18] MEDS: Dextrose 5%-0.9% NaCl 1,000 ML IV SCH ×2 (07:15→16:22)
[2018-08-18] MEDS: Tamsulosin 0.4 MG Cap.ER PO SCH ×2 (08:08→17:06)
[2018-08-18] MEDS: Acetaminophen/HYDROcodone 325-5 MG Tab PO PRN ×3 (08:08→19:56)
[2018-08-18] MEDS: Pantoprazole 40 MG Vial IVPUSH SCH (08:09)
--- NOTE | 2018-08-18 15:12 | PCM.PN ---
- General Info Date of Service: 08/18/18 Functional Status: Reports: Pain Controlled, Tolerating Diet, Ambulating, Urinating - Review of Systems General: Reports: No Symptoms HEENT: Reports: No Symptoms Pulmonary: Reports: No Symptoms Cardiovascular: Reports: No Symptoms Gastrointestinal: Reports: No Symptoms Genitourinary: Reports: No Symptoms Musculoskeletal: Reports: No Symptoms Skin: Reports: No Symptoms Neurological: Reports: No Symptoms Psychiatric: Reports: No Symptoms - Patient Data Vitals - Most Recent: Last Vital Signs Temp 37.5 C 08/18/18 08:18 Pulse 48 L 08/18/18 08:18 Resp 16 08/18/18 08:18 BP 114/61 08/18/18 08:19 Pulse Ox 91 L 08/18/18 08:18 Weight - Most Recent: 110.722 kg I&O - Last 24 Hours: Intake & Output 08/18/18 08/18/18 08/18/18 06:59 14:59 22:59 Intake Total 2156 Output Total 875 Balance 1281 Lab Results Last 24 Hours: Laboratory Results - last 24 hr 08/17/18 08/18/18 08/18/18 Range/Units 18:04 05:21 05:27 WBC 15.52 H (4.23-9.07) K/mm3 RBC 4.58 L (4.63-6.08) M/mm3 Hgb 14.1 (13.7-17.5) gm/L Hct 44.3 (40.1-51.0) % MCV 96.7 H (79.0-92.2) fl MCH 30.8 (25.7-32.2) pg MCHC 31.8 L (32.2-35.5) g/dl RDW Std Deviation 48.3 H (35.1-43.9) fL Plt Count 156 L (163-337) K/mm3 MPV 10.5 (9.4-12.3) fl Neut % (Auto) 86.1 H (34.0-67.9) % Lymph % (Auto) 6.2 L (21.8-53.1) % Hamilton % (Auto) 7.3 (5.3-12.2) % Eos % (Auto) 0 L (0.8-7.0) Baso % (Auto) 0.1 (0.1-1.2) % Neut # (Auto) 13.38 H (1.78-5.38) K/mm3 Lymph # (Auto) 0.96 L (1.32-3.57) K/mm3 Hamilton # (Auto) 1.13 H (0.30-0.82) K/mm3 Eos # (Auto) 0.00 L (0.04-0.54) K/mm3 Baso # (Auto) 0.01 (0.01-0.08) K/mm3 Manual Slide Review Abnormal smear Sodium (136-145) mEq/L Potassium (3.5-5.1) mEq/L Chloride (98-107) mEq/L Carbon Dioxide (21-32) mEq/L Anion Gap (5-15) BUN (7-18) mg/dL Creatinine (0.7-1.3) mg/dL Est Cr Clr Drug Dosing mL/min Estimated GFR (MDRD) (>60) mL/min BUN/Creatinine Ratio (14-18) Glucose (80-115) mg/dL POC Glucose 134 H (80-115) mg/dL Calcium (8.5-10.1) mg/dL Magnesium (1.8-2.4) mg/dl Total Bilirubin (0.2-1.0) mg/dL AST (15-37) U/L ALT (16-63) U/L Alkaline Phosphatase (46-116) U/L C-Reactive Protein (<1.0) mg/dL Total Protein (6.4-8.2) g/dl Albumin (3.4-5.0) g/dl Globulin gm/dL Albumin/Globulin Ratio (1-2) Amylase 277 H (25-115) U/L Lipase 743 H (73-393) U/L 08/18/18 Range/Units 05:27 WBC (4.23-9.07) K/mm3 RBC (4.63-6.08) M/mm3 Hgb (13.7-17.5) gm/L Hct (40.1-51.0) % MCV (79.0-92.2) fl MCH (25.7-32.2) pg MCHC (32.2-35.5) g/dl RDW Std Deviation (35.1-43.9) fL Plt Count (163-337) K/mm3 MPV (9.4-12.3) fl Neut % (Auto) (34.0-67.9) % Lymph % (Auto) (21.8-53.1) % Hamilton % (Auto) (5.3-12.2) % Eos % (Auto) (0.8-7.0) Baso % (Auto) (0.1-1.2) % Neut # (Auto) (1.78-5.38) K/mm3 Lymph # (Auto) (1.32-3.57) K/mm3 [place] # (Auto) (0.30-0.82) K/mm3 Eos # (Auto) (0.04-0.54) K/mm3 Baso # (Auto) (0.01-0.08) K/mm3 Manual Slide Review Sodium 141 (136-145) mEq/L Potassium 3.9 (3.5-5.1) mEq/L Chloride 108 H (98-107) mEq/L Carbon Dioxide 24 (21-32) mEq/L Anion Gap 12.9 (5-15) BUN 21 H (7-18) mg/dL Creatinine 1.2 (0.7-1.3) mg/dL Est Cr Clr Drug Dosing 77.36 mL/min Estimated GFR (MDRD) > 60 (>60) mL/min BUN/Creatinine Ratio 17.5 (14-18) Glucose 111 (80-115) mg/dL POC Glucose (80-115) mg/dL Calcium 8.3 L (8.5-10.1) mg/dL Magnesium 1.9 (1.8-2.4) mg/dl Total Bilirubin 4.0 H (0.2-1.0) mg/dL AST 22 (15-37) U/L ALT 15 L (16-63) U/L Alkaline Phosphatase 100 (46-116) U/L C-Reactive Protein 39.2 H* (<1.0) mg/dL Total Protein 6.7 (6.4-8.2) g/dl Albumin 2.6 L (3.4-5.0) g/dl Globulin 4.1 gm/dL Albumin/Globulin Ratio 0.6 L (1-2) Amylase (25-115) U/L Lipase (73-393) U/L Juvenal Results Last 24 Hours: Microbiology 08/16/18 11:50 Urine Culture - Final Urine, Catheterized NO GROWTH AFTER 2 DAYS Med Orders - Current: Current Medications Acetaminophen (Tylenol) 650 mg PO Q4H PRN PRN Reason: Pain (Mild 1-3)/fever Hydrocodone Bitart/Acetaminophen ([place] 325-5 Mg) 1 tab PO Q6H PRN PRN Reason: Pain Last Admin: 08/18/18 13:42 Dose: 1 tab Bisacodyl (Dulcolax) 5 mg PO DAILY PRN PRN Reason: Constipation Docusate Sodium (Colace) 100 mg PO BID PRN PRN Reason: Constipation Enoxaparin Sodium (Lovenox) 40 mg SUBCUT Q24H [facility] Last Admin: 08/17/18 17:58 Dose: 40 mg Fentanyl (Duragesic) 12 mcg TRDERM Q72H [facility] Last Admin: 08/16/18 12:51 Dose: 12 mcg Hydromorphone HCl (Dilaudid) 1 mg IVPUSH Q8HR PRN PRN Reason: Pain Promethazine HCl 12.5 mg/ (Sodium Chloride) 50.5 mls @ 100 mls/hr IV Q6H PRN PRN Reason: Nausea Dextrose/Sodium Chloride (Dextrose 5%-Normal Saline) 1,000 mls @ 125 mls/hr IV ASDIRECTED [facility] Last Admin: 08/18/18 07:15 Dose: 125 mls/hr Ketorolac Tromethamine (Toradol) 30 mg IV Q6H [facility] Stop: 08/20/18 21:01 Last Admin: 08/18/18 11:48 Dose: 30 mg Magnesium Hydroxide (Milk Of Magnesia) 30 ml PO Q12H PRN PRN Reason: Constipation Miscellaneous Information (Remove Patch) 1 ea TRDERM Q72H [facility] Ondansetron HCl (Zofran Odt) 4 mg PO Q4H PRN PRN Reason: nausea, able to take PO Ondansetron HCl (Zofran) 4 mg IV Q4H PRN PRN Reason: Nausea/Vomiting Last Admin: 08/16/18 10:50 Dose: 4 mg Pantoprazole Sodium (Protonix Iv) 40 mg IVPUSH DAILY [facility] Last Admin: 08/18/18 08:09 Dose: 40 mg Polyethylene Glycol (Miralax) 17 gm PO DAILY PRN PRN Reason: Constipation Senna/Docusate Sodium (Senna Plus) 1 tab PO BID PRN PRN Reason: Constipation [facility] Last Admin: 08/18/18 08:08 Dose: 0.4 mg Discontinued Medications Diatrizoate Meglum/Diatrizoate Sod (Gastrografin 37%) 90 ml PO ONETIME ONE Stop: 08/16/18 09:44 Last Admin: 08/16/18 10:14 Dose: 90 ml Dicyclomine HCl (Bentyl) 20 mg PO ONETIME ONE Stop: 08/15/18 18:21 Last Admin: 08/15/18 20:16 Dose: 20 mg Hydromorphone HCl (Dilaudid) 1 mg IVPUSH ONETIME ONE Stop: 08/15/18 12:59 Last Admin: 08/15/18 13:04 Dose: 1 mg Hydromorphone HCl (Dilaudid) 1 mg IVPUSH ONETIME ONE Stop: 08/15/18 16:59 Last Admin: 08/15/18 17:30 Dose: 1 mg Hydromorphone HCl (Dilaudid) 0.5 mg IVPUSH Q2H PRN PRN Reason: Pain (severe 7-10) Last Admin: 08/16/18 08:32 Dose: 0.5 mg Hydromorphone HCl (Dilaudid) 2 mg IVPUSH ONETIME ONE Stop: 08/16/18 08:52 Last Admin: 08/16/18 09:05 Dose: 2 mg Hydromorphone HCl (Dilaudid) 1 mg IVPUSH Q2H PRN PRN Reason: Pain Hydromorphone HCl (Dilaudid) 1 mg IVPUSH Q4H PRN PRN Reason: Pain Last Admin: 08/17/18 02:13 Dose: 1 mg Hyoscyamine (Hyomax-Sl) 0.125 mg SL ONETIME ONE Stop: 08/15/18 18:21 Last Admin: 08/15/18 20:16 Dose: 0.125 mg Dextrose/Sodium Chloride (Dextrose 5%-Normal Saline) 1,000 mls @ 250 [facility]ls[facility] Last Admin: 08/15/18 12:55 Dose: 250 mls/hr Dextrose/Sodium Chloride (Dextrose 5%-Normal Saline) 1,000 mls @ 150 mls/hr IV ASDIRECTED [facility] Last Admin: 08/15/18 17:28 Dose: 150 mls/hr Dextrose/Sodium Chloride (Dextrose 5%-Normal Saline) 1,000 mls @ 125 mls/hr IV ASDIRECTED [facility] Last Admin: 08/16/18 12:29 Dose: 75 mls/hr Sodium Chloride (Normal Saline) 100 mls @ 60 mls/hr IV ASDIRECTED [facility] Last Admin: 08/16/18 10:15 Dose: 60 mls/hr Iopamidol (Isovue-370 (76%)) 100 ml IVPUSH ONETIME ONE Stop: 08/16/18 09:44 Last Admin: 08/16/18 10:14 Dose: 100 ml Ketorolac Tromethamine (Toradol) 30 mg IVPUSH ONETIME [facility] Last Admin: 08/15/18 15:05 Dose: 30 mg Ketorolac Tromethamine (Toradol) 30 mg IV Q6H PRN PRN Reason: Pain (moderate 4-6) Stop: 08/20/18 21:01 Last Admin: 08/17/18 09:47 Dose: 30 mg Ketorolac Tromethamine (Toradol) 60 mg IM ONETIME ONE Stop: 08/17/18 12:13 Last Admin: 08/17/18 13:02 Dose: 60 mg Ketorolac Tromethamine (Toradol) 30 mg IV Q6H [facility] Stop: 08/20/18 21:01 Metoclopramide HCl (Reglan) 10 mg IVPUSH ONETIME ONE Stop: 08/15/18 16:59 Last Admin: 08/15/18 17:28 Dose: 10 mg Ondansetron HCl (Zofran) 4 mg IVPUSH ONETIME ONE Stop: 08/15/18 12:41 Last Admin: 08/15/18 12:55 Dose: 4 mg Sodium Chloride (Saline Flush) 10 ml FLUSH ONETIME ONE Stop: 08/16/18 09:44 Last Admin: 08/16/18 10:14 Dose: 10 ml - Exam Quality Assessment: DVT Prophylaxis General: Alert, Oriented, Cooperative, No Acute Distress HEENT: Pupils Equal, Pupils Reactive, EOMI Neck: Supple, Trachea Midline, No JVD Lungs: Clear to Auscultation, Normal Respiratory Effort Cardiovascular: Regular Rate, Regular Rhythm GI/Abdominal Exam: Normal Bowel Sounds, Soft, No Organomegaly, No Distention, Tender (RUQ) (Male) Exam: Deferred Back Exam: Normal Inspection Extremities: Normal Inspection, Non-Tender, Normal Capillary Refill Skin: Warm Neurological: No New Focal Deficit Psy/Mental Status: Alert, Normal Affect, Normal Mood - Problem List Review Problem List Initiated/Reviewed/Updated: Yes - My Orders Last 24 Hours: My Active Orders 08/17/18 16:57 Acetaminophen/HYDROcodone [[place] 325-5 MG] 1 tab PO Q6H PRN 08/17/18 16:58 HYDROmorphone [Dilaudid] 1 mg IVPUSH Q8HR PRN 08/17/18 18:00 Ketorolac [Toradol] 30 mg IV Q6H 08/19/18 05:00 AMYLASE [CHEM] DAILY LIPASE [CHEM] DAILY 08/20/18 05:00 AMYLASE [CHEM] DAILY LIPASE [CHEM] DAILY 08/21/18 05:00 AMYLASE [CHEM] DAILY LIPASE [CHEM] DAILY - Plan Plan:: I/P: Acute: Acute Pancreatitis-->clear liquids today; chnage to scheduled toradol/po pain meds. * RUQ pain, N/V Started at 0500 after breakfast, has been increasing * Similar symptoms in December; was diagnosed with PUD * TTP RUQ, Guarding, Positive Ontiveros's sign * WBC 12.4--> 19.11, CRP 0.6--> 3.1 * Bilirubin 1.8--> 2.1, GGT 170--> 152, Alk phos 134--> 133 * Gallbladder U/S in ED shows nothing acute * Consulted General Surgeon Dr. Reina: * Repeat CMP, GGT, Amylase and Lipase in AM * Will come to see the pt in the AM --> believes this is pancreatitis; recommends CT Abdomen * NPO diet * CT Abdomen/Pelvis: * 1. Inflammatory change around the pancreas compatible with pancreatitis. * 2. Bibasilar atelectasis. * 3. Other incidental findings * IVF * Pain management PRN Bradycardia * HR ranges from 20's to 40's * Normal per pt; Asymptomatic * EKG--> bradycardia * Schedule f/u with [facility] oupt after D/C * Consider Holter monitor at D/C Urinary Obstruction/Anuria * U/A negative for UTI * Flomax * Urinary Catheter for strict I's+O's Chronic: Bradycardia Syncope--> states this was 20 years ago after he broke his wrist; no recent episodes PUD--> H pylori negative h/o CVA Plan: Admitted to medical floor He remains stable Other orders as indicated above Routine AM labs NPO except ice chips DVT Prophylaxis: Ambulation GI Prophylaxis: Protonix Code Status: Full Code; PCP: Dr. Ismael Esteban D/C Plan: * Schedule f/u with cardiology outpt regarding bradycardia * Consider Holter monitor after D/C LOS>96 hours with slow progress.
[2018-08-18] MEDS: Enoxaparin 40 MG/0.4 ML Syringe SUBCUT SCH (17:06)
[2018-08-18] MEDS ORDERED: Diatrizoate Meglumine/Diatrizoate Sodium 37% 120 ML Bottle PO ONE (17:59)
[2018-08-18] MEDS ORDERED: Iopamidol 612 MG/ML 150 ML Bottle IVPUSH ONE (17:59)
[2018-08-18] MEDS ORDERED: Sodium Chloride 0.9% 10 ML Syringe FLUSH ONE (17:59)
[2018-08-19] MEDS: Dextrose 5%-0.9% NaCl 1,000 ML IV SCH ×3 (01:33→17:22)
[2018-08-19] MEDS: Acetaminophen/HYDROcodone 325-5 MG Tab PO PRN ×3 (05:28→21:47)
--- NOTE | 2018-08-19 07:13 | CT ---
CT abdomen and pelvis Technique: Multiple axial sections were obtained from above the dome of the diaphragm inferiorly through the pubic symphysis. Intravenous and oral contrast was utilized. Comparison: Prior CT abdomen and pelvis exam of 08/16/18. Findings: Small left sided pleural effusion and minimal right sided pleural effusion is seen. Increasing areas of consolidation are identified within both lung bases. Liver shows no focal abnormality. Spleen appears within normal limits. Gallbladder contains no calcified gallstones. Adrenal glands show no nodule. Kidneys show symmetric contrast enhancement without hydronephrosis. Two minimal low density areas are seen within the left kidney which are too small to characterize but most likely represent minimal cysts. Aorta shows atherosclerotic calcification which continues into the iliac vessels without aneurysm. Diffuse inflammatory change is seen around the pancreas. Several poorly enhancing areas are noted within the body of the pancreas likely representing early necrosis. Fluid is seen around the pancreas and within the pelvis. The amount of fluid has increased from prior study. No pseudocyst is seen at this time. Small fat-containing inguinal hernias are noted on both sides. Bone window settings show scattered degenerative change within the spine. Impression: 1. Small pleural effusions which are an interval finding from prior CT exam. Increasing areas of consolidation within both lung bases which is most likely due to increasing atelectasis. 2. Worsening inflammatory change around the pancreas as well as slight increasing fluid within the abdomen and pelvis. Low density area within the body of the pancreas is seen compatible with early necrosis. 3. Other incidental findings as noted above. Diagnostic code #3 Agree with preliminary report issued by [facility] ([facility] preliminary report dictated on 08/18/18, 9:10 PM Central Time)
[2018-08-19] MEDS: Pantoprazole 40 MG Vial IVPUSH SCH (08:06)
[2018-08-19] MEDS: Tamsulosin 0.4 MG Cap.ER PO SCH ×2 (08:06→17:30)
[2018-08-19] MEDS: fentaNYL 12 MCG/HR Transdermal Patch TRDERM SCH (14:12)
[2018-08-19] MEDS: Albuterol/Ipratropium 3.0-0.5 MG/3 ML Neb Soln NEB SCH ×2 (16:58→20:34)
[2018-08-19] MEDS: Enoxaparin 40 MG/0.4 ML Syringe SUBCUT SCH (17:30)
--- NOTE | 2018-08-19 19:25 | PCM.PN ---
- General Info Date of Service: 08/19/18 Admission Dx/Problem (Free Text): Admission Diagnosis/Problem Admission Diagnosis/Problem Pancreatitis due to biliary obstruction Subjective Update: In to see Eric. He is sitting in chair visiting with a friend. He states he is feeling a lot of abdominal pain, "10.5 out of 10", but has no other symptoms at this time. He states he has been able to have normal BMs so he is not currently constipated and denies and F/C, N/V/D, CP, dysuria, or any other complaints at this time. He is still on O2 as he is not taking deep breaths d/t abdominal pain. He has been working with respiratory therapy with positive pressure spirometry to help improve this. I went over the CT Ab/pelvis results explaining that it shows bilateral atelectasis and some increased swelling around the pancreas, which we will need to watch out for necrotic pancreas or development of infection. Dr. Daniels General Surgeon will come see him in the morning to assess whether he feels he needs surgery or not. I answered all questions and concerns. No other concerns from nursing. Urine culture shows no growth. Still awaiting ECHO results. Functional Status: Reports: Pain Controlled (difficult to control, but giving pain meds PRN), Tolerating Diet, Ambulating (minimal d/t pain), Urinating - Review of Systems General: Reports: Appetite (decreased). Denies: Fever, Chills HEENT: Reports: No Symptoms Pulmonary: Reports: No Symptoms. Denies: Shortness of Breath, Cough, Wheezing Cardiovascular: Reports: No Symptoms. Denies: Chest Pain, Palpitations, Edema Gastrointestinal: Reports: Abdominal Pain, Decreased Appetite. Denies: Diarrhea , Nausea, Vomiting Genitourinary: Reports: No Symptoms Musculoskeletal: Reports: No Symptoms Skin: Reports: No Symptoms Neurological: Reports: No Symptoms Psychiatric: Reports: No Symptoms - Patient Data Vitals - Most Recent: Last Vital Signs Temp 97.9 F 08/19/18 08:13 Pulse 45 L 08/19/18 17:22 Resp 20 08/19/18 17:22 BP 111/50 L 08/19/18 17:22 Pulse Ox 92 L 08/19/18 17:22 Weight - Most Recent: 249 lb I&O - Last 24 Hours: Intake & Output 08/19/18 08/19/18 08/19/18 06:59 14:59 22:59 Intake Total 2234 120 1509 Output Total 500 Balance 1676 570 3964 Lab Results Last 24 Hours: Laboratory Results - last 24 hr 08/19/18 08/19/18 08/19/18 Range/Units 05:30 05:30 05:30 WBC 11.91 H (4.23-9.07) K/mm3 RBC 3.83 L (4.63-6.08) M/mm3 Hgb 11.9 L (13.7-17.5) gm/L Hct 36.6 L (40.1-51.0) % MCV 95.6 H (79.0-92.2) fl MCH 31.1 (25.7-32.2) pg MCHC 32.5 (32.2-35.5) g/dl RDW Std Deviation 45.9 H (35.1-43.9) fL Plt Count 176 (163-337) K/mm3 MPV 10.8 (9.4-12.3) fl Neut % (Auto) 80.9 H (34.0-67.9) % Lymph % (Auto) 7.7 L (21.8-53.1) % [place] % (Auto) 10.8 (5.3-12.2) % Eos % (Auto) 0.2 L (0.8-7.0) Baso % (Auto) 0.1 (0.1-1.2) % Neut # (Auto) 9.63 H (1.78-5.38) K/mm3 Lymph # (Auto) 0.92 L (1.32-3.57) K/mm3 [place] # (Auto) 1.29 H (0.30-0.82) K/mm3 Eos # (Auto) 0.02 L (0.04-0.54) K/mm3 Baso # (Auto) 0.01 (0.01-0.08) K/mm3 Manual Slide Review Abnormal smear Sodium 138 (136-145) mEq/L Potassium 3.6 (3.5-5.1) mEq/L Chloride 107 (98-107) mEq/L Carbon Dioxide 23 (21-32) mEq/L Anion Gap 11.6 (5-15) BUN 16 (7-18) mg/dL Creatinine 1.1 (0.7-1.3) mg/dL Est Cr Clr Drug Dosing 84.39 mL/min Estimated GFR (MDRD) > 60 (>60) mL/min BUN/Creatinine Ratio 14.5 (14-18) Glucose 128 H (80-115) mg/dL Calcium 8.1 L (8.5-10.1) mg/dL Magnesium 1.8 (1.8-2.4) mg/dl Total Bilirubin 6.1 H (0.2-1.0) mg/dL AST 21 (15-37) U/L ALT 12 L (16-63) U/L Alkaline Phosphatase 89 (46-116) U/L C-Reactive Protein 28.9 H* (<1.0) mg/dL Total Protein 5.9 L (6.4-8.2) g/dl Albumin 2.1 L (3.4-5.0) g/dl Globulin 3.8 gm/dL Albumin/Globulin Ratio 0.6 L (1-2) Amylase 89 (25-115) U/L Lipase 264 (73-393) U/L Med Orders - Current: Current Medications Acetaminophen (Tylenol) 650 mg PO Q4H PRN PRN Reason: Pain (Mild 1-3)/fever Hydrocodone Bitart/Acetaminophen ([place] 325-5 Mg) 1 tab PO Q6H PRN PRN Reason: Pain Last Admin: 08/19/18 14:10 Dose: 1 tab Albuterol/Ipratropium (Duoneb 3.0-0.5 Mg/3 Ml) 3 ml NEB Q6HRRT [facility] Last Admin: 08/19/18 16:58 Dose: 3 ml Bisacodyl (Dulcolax) 5 mg PO DAILY PRN PRN Reason: Constipation Docusate Sodium (Colace) 100 mg PO BID PRN PRN Reason: Constipation Enoxaparin Sodium (Lovenox) 40 mg SUBCUT Q24H [facility] Last Admin: 08/19/18 17:30 Dose: 40 mg Fentanyl (Duragesic) 12 mcg TRDERM Q72H [facility] Last Admin: 08/19/18 14:12 Dose: 12 mcg Hydromorphone HCl (Dilaudid) 1 mg IVPUSH Q8HR PRN PRN Reason: Pain Last Admin: 08/19/18 15:34 Dose: 1 mg Promethazine HCl 12.5 mg/ (Sodium Chloride) 50.5 mls @ 100 mls/hr IV Q6H PRN PRN Reason: Nausea Dextrose/Sodium Chloride (Dextrose 5%-Normal Saline) 1,000 mls @ 125 mls/hr IV ASDIRECTED [facility] Last Admin: 08/19/18 17:22 Dose: 125 mls/hr Magnesium Hydroxide (Milk Of Magnesia) 30 ml PO Q12H PRN PRN Reason: Constipation Miscellaneous Information (Remove Patch) 1 ea TRDERM Q72H [facility] Last Admin: 08/19/18 14:12 Dose: 1 ea Ondansetron HCl (Zofran Odt) 4 mg PO Q4H PRN PRN Reason: nausea, able to take PO Ondansetron HCl (Zofran) 4 mg IV Q4H PRN PRN Reason: Nausea/Vomiting Last Admin: 08/16/18 10:50 Dose: 4 mg Pantoprazole Sodium (Protonix) 40 mg PO DAILY@0700 [facility] Polyethylene Glycol (Miralax) 17 gm PO DAILY PRN PRN Reason: Constipation Senna/Docusate Sodium (Senna Plus) 1 tab PO BID PRN PRN Reason: Constipation Tamsulosin HCl ([facility]omax) [facility] Last Admin: 08/19/18 17:30 Dose: 0.4 mg Discontinued Medications Diatrizoate Meglum/Diatrizoate Sod (Gastrografin 37%) 90 ml PO ONETIME ONE Stop: 08/16/18 09:44 Last Admin: 08/16/18 10:14 Dose: 90 ml Diatrizoate Meglum/Diatrizoate Sod (Gastrografin 37%) 90 ml PO ONETIME ONE Stop: 08/18/18 18:00 Last Admin: 08/18/18 18:33 Dose: 90 ml Dicyclomine HCl (Bentyl) 20 mg PO ONETIME ONE Stop: 08/15/18 18:21 Last Admin: 08/15/18 20:16 Dose: 20 mg Hydromorphone HCl (Dilaudid) 1 mg IVPUSH ONETIME ONE Stop: 08/15/18 12:59 Last Admin: 08/15/18 13:04 Dose: 1 mg Hydromorphone HCl (Dilaudid) 1 mg IVPUSH ONETIME ONE Stop: 08/15/18 16:59 Last Admin: 08/15/18 17:30 Dose: 1 mg Hydromorphone HCl (Dilaudid) 0.5 mg IVPUSH Q2H PRN PRN Reason: Pain (severe 7-10) Last Admin: 08/16/18 08:32 Dose: 0.5 mg Hydromorphone HCl (Dilaudid) 2 mg IVPUSH ONETIME ONE Stop: 08/16/18 08:52 Last Admin: 08/16/18 09:05 Dose: 2 mg Hydromorphone HCl (Dilaudid) 1 mg IVPUSH Q2H PRN PRN Reason: Pain Hydromorphone HCl (Dilaudid) 1 mg IVPUSH Q4H PRN PRN Reason: Pain Last Admin: 08/17/18 02:13 Dose: 1 mg Hyoscyamine (Hyomax-Sl) 0.125 mg SL ONETIME ONE Stop: 08/15/18 18:21 Last Admin: 08/15/18 20:16 Dose: 0.125 mg Dextrose/Sodium Chloride (Dextrose 5%-Normal Saline) 1,000 mls @ 250 mls/hr IV ASDIRECTED [facility] Last Admin: 08/15/18 12:55 Dose: 250 mls/hr Dextrose/Sodium Chloride (Dextrose 5%-Normal Saline) 1,000 mls @ 150 mls/hr IV ASDIRECTED [facility] Last Admin: 08/15/18 17:28 Dose: 150 mls/hr Dextrose/Sodium Chloride (Dextrose 5%-Normal Saline) 1,000 mls @ 125 mls/hr IV ASDIRECTED [facility] Last Admin: 08/16/18 12:29 Dose: 75 mls/hr Sodium Chloride (Normal Saline) 100 mls @ 60 mls/hr IV ASDIRECTED [facility] Last Admin: 08/16/18 10:15 Dose: 60 mls/hr Iopamidol (Isovue-370 (76%)) 100 ml IVPUSH ONETIME ONE Stop: 08/16/18 09:44 Last Admin: 08/16/18 10:14 Dose: 100 ml Iopamidol (Isovue-300 (61%)) 125 ml IVPUSH ONETIME ONE Stop: 08/18/18 18:00 Last Admin: 08/18/18 18:33 Dose: 125 ml Ketorolac Tromethamine (Toradol) 30 mg IVPUSH ONETIME [facility] Last Admin: 08/15/18 15:05 Dose: 30 mg Ketorolac Tromethamine (Toradol) 30 mg IV Q6H PRN PRN Reason: Pain (moderate 4-6) Stop: 08/20/18 21:01 Last Admin: 08/17/18 09:47 Dose: 30 mg Ketorolac Tromethamine (Toradol) 60 mg IM ONETIME ONE Stop: 08/17/18 12:13 Last Admin: 08/17/18 13:02 Dose: 60 mg Ketorolac Tromethamine (Toradol) 30 mg IV Q6H [facility] Stop: 08/20/18 21:01 Ketorolac Tromethamine (Toradol) 30 mg IV Q6H [facility] Stop: 08/20/18 21:01 Last Admin: 08/18/18 11:48 Dose: 30 mg Metoclopramide HCl (Reglan) 10 mg IVPUSH ONETIME ONE Stop: 08/15/18 16:59 Last Admin: 08/15/18 17:28 Dose: 10 mg Ondansetron HCl (Zofran) 4 mg IVPUSH ONETIME ONE Stop: 08/15/18 12:41 Last Admin: 08/15/18 12:55 Dose: 4 mg Pantoprazole Sodium (Protonix Iv) 40 mg IVPUSH DAILY [facility] Last Admin: 08/19/18 08:06 Dose: 40 mg Sodium Chloride (Saline Flush) 10 ml FLUSH ONETIME ONE Stop: 08/16/18 09:44 Last Admin: 08/16/18 10:14 Dose: 10 ml Sodium Chloride (Saline Flush) 10 ml FLUSH ONETIME ONE Stop: 08/18/18 18:00 Last Admin: 08/18/18 18:33 Dose: 10 ml - Exam Quality Assessment: Supplemental Oxygen (4L NC), DVT Prophylaxis General: Alert, Oriented, Cooperative, Mild Distress HEENT: Pupils Equal, Pupils Reactive, EOMI, Mucous Membr. Moist/[place] Neck: Supple Lungs: Clear to Auscultation, Normal Respiratory Effort Cardiovascular: Regular Rhythm, Bradycardia GI/Abdominal Exam: Soft, Non-Tender, No Organomegaly, No Distention, No Abnormal Bruit, No Mass, Pelvis Stable, Abnormal Bowel Sounds (hypoactive) (Male) Exam: Deferred Back Exam: Normal Inspection, Full Range of Motion Extremities: Normal Inspection, Normal Range of Motion, Non-Tender, No Pedal Edema, Normal Capillary Refill Peripheral Pulses: 3+: Posterior Tibial (L), Posterior Tibial (R), Dorsalis Pedis (L), Dorsalis Pedis (R) Skin: Warm, Dry, Intact Neurological: No New Focal Deficit Psy/Mental Status: Alert, Normal Affect, Normal Mood - Problem List & Annotations (1) Abdominal pain SNOMED Code(s): 75885013 Code(s): R10.9 - UNSPECIFIED ABDOMINAL PAIN Status: Acute Priority: High Current Visit: Yes Qualifiers: Abdominal location: right upper quadrant Qualified Code(s): R10.11 - Right upper quadrant pain (2) Biliary colic SNOMED Code(s): 53620055 Code(s): K80.50 - CALCULUS OF BILE DUCT W/O CHOLANGITIS OR CHOLECYST W/O OBST Status: Acute Priority: High Current Visit: Yes (3) Bradycardia by electrocardiogram SNOMED Code(s): 786459610 Code(s): R00.1 - BRADYCARDIA, UNSPECIFIED Status: Acute Priority: High Current Visit: Yes (4) Pancreatitis, acute SNOMED Code(s): 588674018 Code(s): K85.90 - ACUTE PANCREATITIS WITHOUT NECROSIS OR INFECTION, UNSP Status: Acute Priority: High Current Visit: Yes Qualifiers: Pancreatitis type: unspecified pancreatitis type Acute pancreatitis complication: unspecified Qualified Code(s): K85.90 - Acute pancreatitis without necrosis or infection, unspecified - Problem List Review Problem List Initiated/Reviewed/Updated: Yes - My Orders Last 24 Hours: My Active Orders 08/19/18 12:30 Remove Patch 1 ea TRDERM Q72H 08/20/18 05:11 C-REACTIVE PROTEIN [CHEM] AM CBC WITH AUTO DIFF [HEME] AM COMPREHENSIVE METABOLIC PN,CMP [CHEM] AM MAGNESIUM [CHEM] AM - Plan Plan:: I/P: Acute: Acute Pancreatitis w/ early necrosis * RUQ pain, N/V Started at 0500 after breakfast, has been increasing * Similar symptoms in December; was diagnosed with PUD * TTP RUQ, Guarding, Positive Ontiveros's sign * WBC 12.4--> 19.11--> 20.34--> 15.52--> 11.91 * CRP 0.6--> 3.1--> 25.5 --> 39.2 --> 28.9 * Bilirubin 1.8--> 2.1--> 2.6 --> 4--> 6.1, GGT 170--> 152, Alk phos 134--> 133- -> 101-->89 * Amylase 194 --> 1219--> 277--> 89, Lipase 71493--> 743 --> 264 * Gallbladder U/S in ED shows nothing acute * Consulted General Surgeon Dr. Reina: * Repeat CMP, GGT, Amylase and Lipase in AM * Will come to see the pt in the AM --> believes this is pancreatitis; recommends CT Abdomen * NPO diet * CT Abdomen/Pelvis 08/16/18: * Inflammatory change around the pancreas compatible with pancreatitis. * Repeat CT Abdomen/Pelvis 08/18/18: * Worsening inflammatory change around the pancreas as well as slight increasing fluid within the abdomen and pelvis. Low density area within the body of the pancreas is seen compatible with early necrosis. * IVF * Pain management PRN * Change to scheduled Toradol/po pain meds--> D/C * Clear liquids--> Soft diet --> Heart Healthy in AM (advance as tolerated) * Consulted General Surgeon Dr. Daniels--> Will come see pt in AM * Recommend f/u with General Surgeon Dr. Tang outpt Bibasilar Atelectasis, worsening * Not taking deep breaths d/t abdominal pain * Confirmed by CT Ab/Pelvis 08/16/18: * Bibasilar atelectasis * Repeat CT Ab/Pelvis 08/18/18: * Small pleural effusions which are an interval finding from prior CT exam. Increasing areas of consolidation within both lung bases which is most likely due to increasing atelectasis. * RT consult * Incentive Spirometry, Encourage deep breaths Bradycardia * HR ranges from 20's to 40's * Normal per pt; Asymptomatic * EKG--> bradycardia * Schedule f/u with icu clerk oupt after D/C * Consider Holter monitor at D/C Urinary Obstruction/Anuria, Improved * U/A negative for UTI * Flomax * Urinary Catheter for strict I's+O's Flat affect * Seems he may possibly be depressed * Consult Dr. Pierce Chronic: Bradycardia Syncope--> states this was 20 years ago after he broke his wrist; no recent episodes PUD--> H pylori negative h/o CVA Plan: Admitted to medical floor He remains stable Other orders as indicated above Routine AM labs NPO except ice chips DVT Prophylaxis: Ambulation GI Prophylaxis: Protonix Code Status: Full Code; PCP: Dr. Ismael Esteban D/C Plan: * Schedule f/u with cardiology outpt regarding bradycardia * Consider Holter monitor after D/C * F/u with General Surgeon Dr. Tang after D/C LOS>96 hours d/t slow progress.
[2018-08-19 21:31] VITALS: BP 119/68
[2018-08-19] MEDS ORDERED: Lactated Ringers 1,000 ML IV SCH (21:53)
[2018-08-19] MEDS ORDERED: metroNIDAZOLE/Normal Saline 500 MG in Premix Bag 1 BAG IV SCH (22:00)
[2018-08-19] MEDS ORDERED: Levofloxacin/Dextrose 5%-Water 750 MG in Premix Bag 1 BAG IV SCH (22:00)
[2018-08-19] MEDS ORDERED: LORazepam 2 MG/ML SDV IVPUSH ONE (22:33)
[2018-08-19] MEDS ORDERED: HYDROmorphone 1 MG/ML Syringe IVPUSH ONE (22:33)
--- NOTE | 2018-08-19 22:41 | PCM.DCSUM1 ---
Discharge Summary - Hospital Course HPI Initial Comments: 63-year-old male presents to the ED with primarily epigastric and periumbilical pain. Still states it started after he ate cereal for breakfast about 0500 hrs. this morning. The pain increased in intensity and radiates frequently up into his right lower quadrant and right flank. He started vomiting about 0800 hrs. and has vomited 6 times since. No hematemesis. No diarrhea. No previous abdominal surgery. He had a normal bowel movement this morning. Associated fever or chills. Similar problems. He does not have heartburn does not take Tums or Rolaids. No trouble swallowing. Patient does not drink any alcohol. Addendum entered and electronically signed by Reinaldo Ramirez MD 08/15/18 18 :21: Patient is still experiencing very good deal of colicky upper abdominal pain. Since he had hypoxia from the last dose of Dilaudid I elected to treat him on Levsin 0.125 mg sublingual and Bentyl 20 mg by mouth for relief of suspect biliary colic/common bile duct pain Addendum entered and electronically signed by Reinaldo Ramirez MD 08/15/18 17 :50: O2 sats dropped into the upper 70s for a period of time after receiving Dilaudid 1 mg IV. Reports that his heart rate dips down his into the 20s at times. Of note he has a chronic sinus bradycardia usually in the 40s but never has a low blood pressure dizziness or any other signs or symptoms with it. Bradycardia all of his life. Landed he requires oxygen 2 L by nasal cannula at this time Diagnosis: Stroke: No - Discharge Data Discharge Date: 08/19/18 (ADMIT 08/15/18) Discharge Disposition: DC/Tfer to Acute Hospital 02 Condition: Stable - Discharge Diagnosis/Problem(s) (1) Abdominal pain SNOMED Code(s): 57173184 ICD Code: R10.9 - UNSPECIFIED ABDOMINAL PAIN Status: Acute Priority: High Current Visit: Yes Qualifiers: Abdominal location: right upper quadrant Qualified Code(s): R10.11 - Right upper quadrant pain (2) Biliary colic SNOMED Code(s): 71280816 ICD Code: K80.50 - CALCULUS OF BILE DUCT W/O CHOLANGITIS OR CHOLECYST W/O OBST Status: Acute Priority: High Current Visit: Yes (3) Bradycardia by electrocardiogram SNOMED Code(s): 486349088 ICD Code: R00.1 - BRADYCARDIA, UNSPECIFIED Status: Acute Priority: High Current Visit: Yes (4) Pancreatitis, acute SNOMED Code(s): 619862666 ICD Code: K85.90 - ACUTE PANCREATITIS WITHOUT NECROSIS OR INFECTION, UNSP Status: Acute Priority: High Current Visit: Yes Qualifiers: Pancreatitis type: unspecified pancreatitis type Acute pancreatitis complication: unspecified Qualified Code(s): K85.90 - Acute pancreatitis without necrosis or infection, unspecified - Patient Summary/Data Operative Procedure(s) Performed: none Complications: none Consults: Consultations 08/15/18 19:45 Consult to Physician [CONS] Routine 08/19/18 10:16 Consult to Physician [CONS] Routine 08/19/18 10:17 Consult to Physical Therapy [PT Evaluation and Treatment] [CONS] Routine 08/19/18 10:18 OT Evaluation and Treatment [CONS] Routine 08/19/18 10:19 Consult to Physician [CONS] Routine Labs Pending at D/C: ECHO results Recommended Follow-up Testing/Procedures: Recommend f/u with General Surgeon Dr. Tang outpt Schedule f/u with cardiology outpt regarding bradycardia Planned Operative Procedure(s) after DC: none Hospital Course: I/P: Acute: Acute Pancreatitis w/ early necrosis * RUQ pain, N/V Started at 0500 after breakfast, has been increasing * Similar symptoms in December; was diagnosed with PUD * TTP RUQ, Guarding, Positive Ontiveros's sign * WBC 12.4--> 19.11--> 20.34--> 15.52--> 11.91 * CRP 0.6--> 3.1--> 25.5 --> 39.2 --> 28.9 * Bilirubin 1.8--> 2.1--> 2.6 --> 4--> 6.1, GGT 170--> 152, Alk phos 134--> 133- -> 101-->89 * Amylase 194 --> 1219--> 277--> 89, Lipase 63268--> 743 --> 264 * Gallbladder U/S in ED shows nothing acute * Consulted General Surgeon Dr. Reina: * Repeat CMP, GGT, Amylase and Lipase in AM * Will come to see the pt in the AM --> believes this is pancreatitis; recommends CT Abdomen * NPO diet * CT Abdomen/Pelvis 08/16/18: * Inflammatory change around the pancreas compatible with pancreatitis. * Repeat CT Abdomen/Pelvis 08/18/18: * Worsening inflammatory change around the pancreas as well as slight increasing fluid within the abdomen and pelvis. Low density area within the body of the pancreas is seen compatible with early necrosis. * IVF * Pain management PRN * Change to scheduled Toradol/po pain meds--> D/C * Clear liquids--> Soft diet --> Heart Healthy in AM (advance as tolerated) * Consulted General Surgeon Dr. Daniels--> Will come see pt in AM * Recommend f/u with General Surgeon Dr. Tang outpt Bibasilar Atelectasis, worsening * Not taking deep breaths d/t abdominal pain * Confirmed by CT Ab/Pelvis 08/16/18: * Bibasilar atelectasis * Repeat CT Ab/Pelvis 08/18/18: * Small pleural effusions which are an interval finding from prior CT exam. Increasing areas of consolidation within both lung bases which is most likely due to increasing atelectasis. * RT consult * Incentive Spirometry, Encourage deep breaths Bradycardia * HR ranges from 20's to 40's * Normal per pt; Asymptomatic * EKG--> bradycardia * Schedule f/u with computer aided design technician oupt after D/C * Consider Holter monitor at D/C Urinary Obstruction/Anuria, Improved * U/A negative for UTI * Flomax * Urinary Catheter for strict I's+O's Flat affect * Seems he may possibly be depressed * Consult Dr. Pierce Chronic: Bradycardia Syncope--> states this was 20 years ago after he broke his wrist; no recent episodes PUD--> H pylori negative h/o CVA Plan: Admitted to medical floor He remains stable Other orders as indicated above Routine AM labs NPO except ice chips DVT Prophylaxis: Ambulation GI Prophylaxis: Protonix Code Status: Full Code; PCP: Dr. Ismael Esteban D/C Plan: * Schedule f/u with cardiology outpt regarding bradycardia * Consider Holter monitor after D/C * F/u with General Surgeon Dr. Tang after D/C LOS>96 hours d/t slow progress. Overall Eric did OK after being admitted for acute pancreatitis. Unfortunately, CT ab/pelvis revealed there may be necrotizing pancreatitis and he began to decompensate tonight, spiking a fever of 101.4 with chills/shaking and increased pain. Discussed case with on-call General Surgeon Dr. Daniels who recommended he be transported to higher level facility [facility]. I discussed the case with Hospitalist Dr. Perera at [facility], who accepted the patient. We started the pt on LR 2L and IV Levaquin 750 and IV Flagyl 500. Will be transferring Eric to higher level facility for continuation of IV antibiotics , IVF and possible debridement of the pancreas if deemed necessary. - Patient Instructions Diet: NPO Activity: As Tolerated Driving: Do Not Drive Showering/Bathing: May Shower Notify Provider of: Fever, Increased Pain, Nausea and/or Vomiting - Discharge Plan *PRESCRIPTION DRUG MONITORING PROGRAM REVIEWED*: Yes *COPY OF PRESCRIPTION DRUG MONITORING REPORT IN PATIENT BENNETT: Yes Patient Handouts: Acute Pancreatitis, [id number] Referrals: Jayashree Oneill MD [Physician] - 09/02/18 8:00 am Ismael Esteban Jr, MD [Primary Care Provider] - (Please obtain referral to see a computer aided design technician re: bradycardia and hypoxia.) - Discharge Summary/Plan Comment DC Time >30 min.: Yes (40) - General Info Date of Service: 08/19/18 Admission Dx/Problem (Free Text: Admission Diagnosis/Problem Admission Diagnosis/Problem Pancreatitis due to biliary obstruction Subjective Update: In to see Eric. He is now in much more pain than before and can barely move without pain. Nursing updated me that his temperature has now spiked at 101.4. He is having chills/shaking. Abdomen is TTP and he is guarding on exam. Functional Status: Reports: Pain Controlled (will give IV push dilaudid and ativan for the ambulance ride), Urinating. Denies: Tolerating Diet, Ambulating (difficult d/t pain) - Review of Systems General: Reports: Chills. Denies: Fever HEENT: Reports: No Symptoms Pulmonary: Reports: Shortness of Breath (difficult to breath d/t abdominal pain) . Denies: Cough, Wheezing Cardiovascular: Reports: No Symptoms. Denies: Chest Pain, Palpitations, Edema Gastrointestinal: Reports: Abdominal Pain (10.5/10 per pt), Decreased Appetite. Denies: Diarrhea, Nausea, Vomiting Genitourinary: Reports: No Symptoms. Denies: Dysuria, Frequency, Burning, Pain , Urgency Musculoskeletal: Reports: No Symptoms Skin: Reports: No Symptoms Neurological: Reports: No Symptoms Psychiatric: Reports: No Symptoms - Patient Data Vitals - Most Recent: Last Vital Signs Temp 100.3 F 08/19/18 21:48 Pulse 78 08/19/18 21:12 Resp 24 H 08/19/18 21:12 BP 119/68 08/19/18 21:12 Pulse Ox 91 L 08/19/18 21:12 Weight - Most Recent: 249 lb I&O - Last 24 hours: Intake & Output 08/19/18 08/19/18 08/19/18 06:59 14:59 22:59 Intake Total 2234 120 1509 Output Total 500 Balance 8930 004 8604 Lab Results - Last 24 hrs: Laboratory Results - last 24 hr 08/19/18 08/19/18 08/19/18 Range/Units 05:30 05:30 05:30 WBC 11.91 H (4.23-9.07) K/mm3 RBC 3.83 L (4.63-6.08) M/mm3 Hgb 11.9 L (13.7-17.5) gm/L Hct 36.6 L (40.1-51.0) % MCV 95.6 H (79.0-92.2) fl MCH 31.1 (25.7-32.2) pg MCHC 32.5 (32.2-35.5) g/dl RDW Std Deviation 45.9 H (35.1-43.9) fL Plt Count 176 (163-337) K/mm3 MPV 10.8 (9.4-12.3) fl Neut % (Auto) 80.9 H (34.0-67.9) % Lymph % (Auto) 7.7 L (21.8-53.1) % [place] % (Auto) 10.8 (5.3-12.2) % Eos % (Auto) 0.2 L (0.8-7.0) Baso % (Auto) 0.1 (0.1-1.2) % Neut # (Auto) 9.63 H (1.78-5.38) K/mm3 Lymph # (Auto) 0.92 L (1.32-3.57) K/mm3 [place] # (Auto) 1.29 H (0.30-0.82) K/mm3 Eos # (Auto) 0.02 L (0.04-0.54) K/mm3 Baso # (Auto) 0.01 (0.01-0.08) K/mm3 Manual Slide Review Abnormal smear Sodium 138 (136-145) mEq/L Potassium 3.6 (3.5-5.1) mEq/L Chloride 107 (98-107) mEq/L Carbon Dioxide 23 (21-32) mEq/L Anion Gap 11.6 (5-15) BUN 16 (7-18) mg/dL Creatinine 1.1 (0.7-1.3) mg/dL Est Cr Clr Drug Dosing 84.39 mL/min Estimated GFR (MDRD) > 60 (>60) mL/min BUN/Creatinine Ratio 14.5 (14-18) Glucose 128 H (80-115) mg/dL Calcium 8.1 L (8.5-10.1) mg/dL Magnesium 1.8 (1.8-2.4) mg/dl Total Bilirubin 6.1 H (0.2-1.0) mg/dL AST 21 (15-37) U/L ALT 12 L (16-63) U/L Alkaline Phosphatase 89 (46-116) U/L C-Reactive Protein 28.9 H* (<1.0) mg/dL Total Protein 5.9 L (6.4-8.2) g/dl Albumin 2.1 L (3.4-5.0) g/dl Globulin 3.8 gm/dL Albumin/Globulin Ratio 0.6 L (1-2) Amylase 89 (25-115) U/L Lipase 264 (73-393) U/L Med Orders - Current: Current Medications Acetaminophen (Tylenol) 650 mg PO Q4H PRN PRN Reason: Pain (Mild 1-3)/fever Last Admin: 08/19/18 21:48 Dose: 325 mg Hydrocodone Bitart/Acetaminophen ([place] 325-5 Mg) 1 tab PO Q6H PRN PRN Reason: Pain Last Admin: 08/19/18 21:47 Dose: 1 tab Albuterol/Ipratropium (Duoneb 3.0-0.5 Mg/3 Ml) 3 ml NEB Q6HRRT [facility] Last Admin: 08/19/18 20:34 Dose: 3 ml Bisacodyl (Dulcolax) 5 mg PO DAILY PRN PRN Reason: Constipation Docusate Sodium (Colace) 100 mg PO BID PRN PRN Reason: Constipation Enoxaparin Sodium (Lovenox) 40 mg SUBCUT Q24H [facility] Last Admin: 08/19/18 17:30 Dose: 40 mg Fentanyl (Duragesic) 12 mcg TRDERM Q72H [facility] Last Admin: 08/19/18 14:12 Dose: 12 mcg Hydromorphone HCl (Dilaudid) 1 mg IVPUSH Q8HR PRN PRN Reason: Pain Last Admin: 08/19/18 15:34 Dose: 1 mg Hydromorphone HCl (Dilaudid) 1 - 2 mg IVPUSH ONETIME ONE Stop: 08/19/18 22:34 Promethazine HCl 12.5 mg/ (Sodium Chloride) 50.5 mls @ 100 mls/hr IV Q6H PRN PRN Reason: Nausea Dextrose/Sodium Chloride (Dextrose 5%-Normal Saline) 1,000 mls @ 125 mls/hr IV ASDIRECTED [facility] Last Admin: 08/19/18 17:22 Dose: 125 mls/hr Lactated Ringer's (Ringers, Lactated) 1,000 mls @ 999 mls/hr IV Q1H [facility] Stop: 08/19/18 23:52 Last Admin: 08/19/18 22:10 Dose: 999 mls/hr Levofloxacin/Dextrose 750 mg/ (Premix) 150 mls @ 100 mls/hr IV Q24H [facility] Last Admin: 08/19/18 22:10 Dose: 100 mls/hr Metronidazole 500 mg/ Premix 100 mls @ 100 mls/hr IV Q8H [facility] Last Admin: 08/19/18 22:14 Dose: 100 mls/hr Lorazepam (Ativan) 0.5 mg IVPUSH ONETIME ONE Stop: 08/19/18 22:34 Magnesium Hydroxide (Milk Of Magnesia) 30 ml PO Q12H PRN PRN Reason: Constipation Miscellaneous Information (Remove Patch) 1 ea TRDERM Q72H [facility] Last Admin: 08/19/18 14:12 Dose: 1 ea Ondansetron HCl (Zofran Odt) 4 mg PO Q4H PRN PRN Reason: nausea, able to take PO Ondansetron HCl (Zofran) 4 mg IV Q4H PRN PRN Reason: Nausea/Vomiting Last Admin: 08/16/18 10:50 Dose: 4 mg Pantoprazole Sodium (Protonix) 40 mg PO DAILY@0700 [facility] Polyethylene Glycol (Miralax) 17 gm PO DAILY PRN PRN Reason: Constipation Senna/Docusate Sodium (Senna Plus) 1 tab PO BID PRN PRN Reason: Constipation Tamsulosin HCl (Flomax) 0.4 mg PO BIDPC [facility] Last Admin: 08/19/18 17:30 Dose: 0.4 mg Discontinued Medications Diatrizoate Meglum/Diatrizoate Sod (Gastrografin 37%) 90 ml PO ONETIME ONE Stop: 08/16/18 09:44 Last Admin: 08/16/18 10:14 Dose: 90 ml Diatrizoate Meglum/Diatrizoate Sod (Gastrografin 37%) 90 ml PO ONETIME ONE Stop: 08/18/18 18:00 Last Admin: 08/18/18 18:33 Dose: 90 ml Dicyclomine HCl (Bentyl) 20 mg PO ONETIME ONE Stop: 08/15/18 18:21 Last Admin: 08/15/18 20:16 Dose: 20 mg Hydromorphone HCl (Dilaudid) 1 mg IVPUSH ONETIME ONE Stop: 08/15/18 12:59 Last Admin: 08/15/18 13:04 Dose: 1 mg Hydromorphone HCl (Dilaudid) 1 mg IVPUSH ONETIME ONE Stop: 08/15/18 16:59 Last Admin: 08/15/18 17:30 Dose: 1 mg Hydromorphone HCl (Dilaudid) 0.5 mg IVPUSH Q2H PRN PRN Reason: Pain (severe 7-10) Last Admin: 08/16/18 08:32 Dose: 0.5 mg Hydromorphone HCl (Dilaudid) 2 mg IVPUSH ONETIME ONE Stop: 08/16/18 08:52 Last Admin: 08/16/18 09:05 Dose: 2 mg Hydromorphone HCl (Dilaudid) 1 mg IVPUSH Q2H PRN PRN Reason: Pain Hydromorphone HCl (Dilaudid) 1 mg IVPUSH Q4H PRN PRN Reason: Pain Last Admin: 08/17/18 02:13 Dose: 1 mg Hyoscyamine (Hyomax-Sl) 0.125 mg SL ONETIME ONE Stop: 08/15/18 18:21 Last Admin: 08/15/18 20:16 Dose: 0.125 mg Dextrose/Sodium Chloride (Dextrose 5%-Normal Saline) 1,000 mls @ 250 mls/hr IV ASDIRECTED [facility] Last Admin: 08/15/18 12:55 Dose: 250 mls/hr Dextrose/Sodium Chloride (Dextrose 5%-Normal Saline) 1,000 mls @ 150 mls/hr IV ASDIRECTED [facility] Last Admin: 08/15/18 17:28 Dose: 150 mls/hr Dextrose/Sodium Chloride (Dextrose 5%-Normal Saline) 1,000 mls @ 125 mls/hr IV ASDIRECTED [facility] Last Admin: 08/16/18 12:29 Dose: 75 mls/hr Sodium Chloride (Normal Saline) 100 mls @ 60 mls/hr IV ASDIRECTED [facility] Last Admin: 08/16/18 10:15 Dose: 60 mls/hr Iopamidol (Isovue-370 (76%)) 100 ml IVPUSH ONETIME ONE Stop: 08/16/18 09:44 Last Admin: 08/16/18 10:14 Dose: 100 ml Iopamidol (Isovue-300 (61%)) 125 ml IVPUSH ONETIME ONE Stop: 08/18/18 18:00 Last Admin: 08/18/18 18:33 Dose: 125 ml Ketorolac Tromethamine (Toradol) 30 mg IVPUSH ONETIME [facility] Last Admin: 08/15/18 15:05 Dose: 30 mg Ketorolac Tromethamine (Toradol) 30 mg IV Q6H PRN PRN Reason: Pain (moderate 4-6) Stop: 08/20/18 21:01 Last Admin: 08/17/18 09:47 Dose: 30 mg Ketorolac Tromethamine (Toradol) 60 mg IM ONETIME ONE Stop: 08/17/18 12:13 Last Admin: 08/17/18 13:02 Dose: 60 mg Ketorolac Tromethamine (Toradol) 30 mg IV Q6H [facility] Stop: 08/20/18 21:01 Ketorolac Tromethamine (Toradol) 30 mg IV Q6H [facility] Stop: 08/20/18 21:01 Last Admin: 08/18/18 11:48 Dose: 30 mg Metoclopramide HCl (Reglan) 10 mg IVPUSH ONETIME ONE Stop: 08/15/18 16:59 Last Admin: 08/15/18 17:28 Dose: 10 mg Ondansetron HCl (Zofran) 4 mg IVPUSH ONETIME ONE Stop: 08/15/18 12:41 Last Admin: 08/15/18 12:55 Dose: 4 mg Pantoprazole Sodium (Protonix Iv) 40 mg IVPUSH DAILY [facility] Last Admin: 08/19/18 08:06 Dose: 40 mg Sodium Chloride (Saline Flush) 10 ml FLUSH ONETIME ONE Stop: 08/16/18 09:44 Last Admin: 08/16/18 10:14 Dose: 10 ml Sodium Chloride (Saline Flush) 10 ml FLUSH ONETIME ONE Stop: 08/18/18 18:00 Last Admin: 08/18/18 18:33 Dose: 10 ml - Exam Quality Assessment: Reports: Supplemental Oxygen (4L NC), DVT Prophylaxis General: Reports: Alert, Oriented, Cooperative, Moderate Distress HEENT: Reports: Pupils Equal, Pupils Reactive, EOMI, Mucous Membr. Moist/[employer] Neck: Reports: Supple Lungs: Reports: Clear to Auscultation, Normal Respiratory Effort Cardiovascular: Reports: Regular Rate, Regular Rhythm GI/Abdominal Exam: Soft, No Organomegaly, No Distention, No Abnormal Bruit, No Mass, Pelvis Stable, Guarding, Tender, Abnormal Bowel Sounds (hypoactive) (Male) Exam: Deferred Rectal (Males) Exam: Deferred Back Exam: Reports: Normal Inspection, Full Range of Motion Extremities: Normal Inspection, Normal Range of Motion, Non-Tender, No Pedal Edema, Normal Capillary Refill Skin: Reports: Warm, Dry, Intact Neurological: Reports: No New Focal Deficit, Cranial Nerves Intact (grossly) Psy/Mental Status: Reports: Alert, Normal Affect, Normal Mood
[2018-08-20] MEDS ORDERED: Pantoprazole 40 MG Tab.CR PO SCH (07:00)
== END 2018-08-19 23:01 | DRG 282 ==
LOC: JD.ED 11:16 → JD.MS 17:35
PROVIDERS: ADMIT Internal Medicine; ATTEND Internal Medicine
DX: K85.90 Acute pancreatitis without necrosis or infection, unspecified (principal); K80.50 Calculus of bile duct without cholangitis or cholecystitis without obstruction; R00.1 Bradycardia, unspecified; R09.02 Hypoxemia; J98.11 Atelectasis; N13.9 Obstructive and reflux uropathy, unspecified; R55 Syncope and collapse; F32.9 Major depressive disorder, single episode, unspecified; T40.2X5A Adverse effect of other opioids, initial encounter; K27.9 Peptic ulcer, site unspecified, unspecified as acute or chronic, without hemorrhage or perforation; Z86.73 Personal history of transient ischemic attack (TIA), and cerebral infarction without residual deficits; Z79.899 Other long term (current) drug therapy; Z85.828 Personal history of other malignant neoplasm of skin
CPT/HCPCS: 36415; 51701; 51798; 74177; 74177-26; 76705; 76705-26; 80048; 80053; 80061; 81001; 81003; 82150; 82962; 82977; 83605; 83690; 83735; 85007; 85025; 85027; 86140; 86141; 86677; 87040; 87086; 93005; 93306; 94640; 94667; 94668; 94761; 96361; 96374; 96375; 96376; 97116-GP; 97162-GP; 97166-GO; 97530-GO; 99285; 99285-25; A9270-GY; C9113; J1170; J1650; J1885; J1956; J2060; J2405; J2765; J3490; J7030; J7042; J7050; J7120; J7620-GY; Q9963; Q9967

== ENCOUNTER 2021-01-18 21:15 | Emergency (ER) | payer BC, MEDICARE ==
[2021-01-18 21:26] VITALS: BP 159/118; PULSE 57
[2021-01-18] MEDS ORDERED: Hyoscyamine 0.125 MG Tab.SL SL ONE ×2 (21:40→21:52)
[2021-01-18] MEDS ORDERED: Metoclopramide 10 MG/2 ML SDV IVPUSH ONE (21:44)
[2021-01-18] MEDS ORDERED: HYDROmorphone 0.5 MG/0.5 ML Syringe IVPUSH ONE ×2 (21:44→23:06)
[2021-01-18] MEDS ORDERED: Sodium Chloride 0.9% 1,000 ML IV SCH (21:45)
--- NOTE | 2021-01-18 21:45 | EDM.PDOC ---
ED HPI GENERAL MEDICAL PROBLEM - General Chief Complaint: Abdominal Pain Stated Complaint: ABDOMINAL PAIN VOMITING Time Seen by Provider: 01/18/21 21:30 Source of Information: Reports: Patient History Limitations: Reports: No Limitations - History of Present Illness INITIAL COMMENTS - FREE TEXT/NARRATIVE: 65-year-old male presents to the ED with acute onset of right upper quadrant and right mid abdominal pain. It radiates slightly to under his right shoulder blade. He ate chicken breasts x2 for supper at about 1630 hrs. this evening. He states pain started about 2 hours ago and precipitated abrupt nausea and vomiting of partially digested food and some bile salt. Patient states that several years ago he was told ED of gallstones and that in fact he had developed necrotizing pancreatitis because of a stone passage through the common bile duct. I suspect this was highly unlikely since most surgeons would have opted to take his gallbladder out shortly after the pancreatitis settle down. Patient states that right town did cause pain in the right upper quadrant and it hurts in his right upper quadrant to take a deep breath or cough. He has had no previous abdominal surgery. Normal bowel movement today without blood. No history of GERD or peptic ulcer disease. He rarely drinks alcohol. 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 Onset: Today, Sudden Onset Date: 01/18/21 Onset Time: 19:30 Duration: Hour(s):, Getting Worse Location: Reports: Abdomen (Right upper quadrant of the abdomen mild), Radiates to (Mild pain in the epigastrium and along the costal margin to the right lateral abdomen and the mid axillary line.) Quality: Reports: Ache (Aching pain with occasional colicky type pain) Severity: Severe (8 out of 10) Improves with: Reports: Rest Worsens with: Reports: Other (With deep breathing coughing) Context: Denies: Activity ( and riding in a motor vehicle), Exercise, Lifting, Sick Contact, Trauma, Other Associated Symptoms: Reports: Loss of Appetite, Nausea/Vomiting (X2 undigested food and bile.), Shortness of Breath. 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 [No Known Home Meds] 02/13/19 [History] Past Medical History - Past Health History Medical/Surgical History: Denies Medical/Surgical History HEENT History: Reports: Cataract, Impaired Vision, Other (See Below) Other HEENT History: wears glasses Cardiovascular History: Reports: Blood Clots/VTE/DVT, Syncope Other Cardiovascular History: bradycardic---heart rate runs 30-40s, pt. 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 Surgically removed - Past Surgical History GI Surgical History: Reports: EGD, ERCP Oncologic Surgical History: Reports: Other (See Below) Other Oncologic Surgeries/Procedures: surgical removed of skin Ca. Social & Family History - Family History Family Medical History: No Pertinent Family History - Tobacco Use Tobacco Use Status *Q: Former Tobacco User Used Tobacco, but Quit: Yes Month/Year Tobacco Last Used: 08/07/2002 - Caffeine Use Caffeine Use: Reports: None Other Caffeine Use: once in awhile - Recreational Drug Use Recreational Drug Use: No - Living Situation & Occupation Living situation: Reports: Single Occupation: Employed ED ROS GENERAL - Review of Systems Review Of Systems: See Below Constitutional: Reports: Decreased Appetite. Denies: Fever, Chills, Malaise, Weakness, Fatigue, Weight Loss HEENT: Reports: Glasses Respiratory: Reports: No Symptoms Cardiovascular: Reports: No Symptoms Endocrine: Reports: No Symptoms GI/Abdominal: Reports: Abdominal Pain (History of present illness. Acute onset of right upper quadrant abdominal pain tonight associate with nausea and vomiting x1.), Nausea, Vomiting (X1 with partially digested food and bile salts.) : Reports: No Symptoms Musculoskeletal: Reports: No Symptoms Skin: Reports: No Symptoms Neurological: Reports: No Symptoms Psychiatric: Reports: No Symptoms Hematologic/Lymphatic: Reports: No Symptoms Immunologic: Reports: No Symptoms ED EXAM, GI/ABD - Physical Exam Exam: See Below Exam Limited By: No Limitations General Appearance: Alert, WD/WN, Mild Distress, Other (Temperature is 36.3 degrees. Heart rate 57 and sinus respiratory 17 with O2 sats of 96%. Blood pressure elevated at 159/118.) Eyes: Bilateral: Normal Appearance (No scleral icterus or blepharal pallor.) Throat/Mouth: Normal Inspection, Normal Lips, Normal Oropharynx, Other Head: Atraumatic (Tongue is moist), Normocephalic Neck: Normal Inspection, Supple, Non-Tender, Full Range of Motion. No: Carotid Bruit, Lymphadenopathy (L), Lymphadenopathy (R) Respiratory/Chest: No Respiratory Distress, Lungs Clear, Normal Breath Sounds, No Accessory Muscle Use Cardiovascular: Normal Peripheral Pulses, Regular Rate, Rhythm, No Edema, No Gallop, No Murmur GI/Abdominal Exam: No Organomegaly, No Distention, Pelvis Stable, Guarding, Tender (Her to percussion right upper quadrant and right mid abdomen. Maximal point of tenderness is right upper quadrant with a positive Ontiveros sign.), Abnormal Bowel Sounds (All sounds are present but are few and far between.). No: Rigid, Rebound (Male) Exam: No Hernia Back Exam: Normal Inspection, Full Range of Motion. No: CVA Tenderness (L), CVA Tenderness (R) Extremities: Normal Inspection, Normal Range of Motion, Non-Tender, No Pedal Edema Neurological: Alert, Oriented, CN II-XII Intact, Normal Cognition Psychiatric: Normal Affect, Normal Mood Skin Exam: Warm, Dry, Intact, Normal Color, No Rash Course - Vital Signs Last Recorded V/S: Last Vital Signs Temp 36.3 C 01/18/21 21: Pulse 57 L 01/18/21 21: Resp 17 01/18/21 21: BP 159/118 H 01/18/21 21:22 Pulse Ox 96 02/23/21 21:22 - Orders/Labs/Meds Labs: Laboratory Tests 01/18/21 01/18/21 01/18/21 Range/Units 21:55 21:55 22:50 WBC 7.32 (4.23-9.07) K/mm3 RBC 5.01 (4.63-6.08) M/mm3 Hgb 15.5 (13.7-17.5) gm/dl Hct 46.9 (40.1-51.0) % MCV 93.6 H (79.0-92.2) fl MCH 30.9 (25.7-32.2) pg MCHC 33.0 (32.2-35.5) g/dl RDW Std Deviation 44.0 H (35.1-43.9) fL Plt Count 224 (163-337) K/mm3 MPV 9.6 (9.4-12.3) fl Neut % (Auto) 60.0 (34.0-67.9) % Lymph % (Auto) 26.2 (21.8-53.1) % [place] % (Auto) 10.4 (5.3-12.2) % Eos % (Auto) 1.9 (0.8-7.0) Baso % (Auto) 1.0 (0.1-1.2) % Neut # (Auto) 4.39 (1.78-5.38) K/mm3 Lymph # (Auto) 1.92 (1.32-3.57) K/mm3 [place] # (Auto) 0.76 (0.30-0.82) K/mm3 Eos # (Auto) 0.14 (0.04-0.54) K/mm3 Baso # (Auto) 0.07 (0.01-0.08) K/mm3 Sodium 143 (136-145) mEq/L Potassium 4.4 (3.5-5.1) mEq/L Chloride 102 (98-107) mEq/L Carbon Dioxide 25 (21-32) mEq/L Anion Gap 20.4 H (5-15) BUN 21 H (7-18) mg/dL Creatinine 1.2 (0.7-1.3) mg/dL Est Cr Clr Drug Dosing 74.35 mL/min Estimated GFR (MDRD) > 60 (>60) mL/min BUN/Creatinine Ratio 17.5 (14-18) Glucose 120 H (80-115) mg/dL Calcium 9.2 (8.5-10.1) mg/dL Magnesium 1.9 (1.8-2.4) mg/dl Total Bilirubin 0.9 (0.2-1.0) mg/dL GGT 127 H (15-85) U/L AST 41 H (15-37) U/L ALT 36 (16-63) U/L Alkaline Phosphatase 130 H (46-116) U/L C-Reactive Protein < 0.2 (<1.0) mg/dL Total Protein 7.8 (6.4-8.2) g/dl Albumin 3.5 (3.4-5.0) g/dl Globulin 4.3 gm/dL Albumin/Globulin Ratio 0.8 L (1-2) Amylase 259 H (25-115) U/L Urine Color Cancelled Urine Appearance Cancelled Urine pH Cancelled Ur Specific [place] Cancelled Urine Protein Cancelled Urine Glucose (UA) Cancelled Urine Ketones Cancelled Urine Occult Blood Cancelled Urine Nitrite Cancelled Urine Bilirubin Cancelled Urine Urobilinogen Cancelled Ur Leukocyte Esterase Cancelled U Hyaline Cast (Auto) Cancelled Urine RBC Cancelled Urine WBC Cancelled Urine WBC Clumps Cancelled Ur Epithelial Cells Cancelled Ur Squamous Epith Cells Cancelled Ur Transition Epith Cell Cancelled Ur Renal Epithelial Cell Cancelled [place] Biurate Crystals Cancelled Calcium Carbonate Cryst Cancelled Calcium Phosphate Cryst Cancelled Calcium Oxalate Crystal Cancelled Leucine Crystals Cancelled Cystine Crystals Cancelled Uric Acid Crystals Cancelled Triple Phos Crystals Cancelled Sodium Urate Crystals Cancelled Tyrosine Crystals Cancelled Other Crystals Cancelled Amorphous Sediment Cancelled Urine Bacteria Cancelled Epithelial Casts Cancelled Fatty Casts Cancelled Fine Granular Casts Cancelled Coarse Granular Casts Cancelled Waxy Casts Cancelled Broad Casts Cancelled RBC Casts Cancelled WBC Casts Cancelled Urine Mucus Cancelled Urine Other Cancelled Urine Trichomonas Cancelled Urine Yeast Cancelled Ur Yeast w [place] Cancelled Urine Yeast (Budding) Cancelled Ur Oval Fat Bodies Cancelled Urinalysis Comment Cancelled Meds: Medications Discontinued Medications Generic Name Dose Route Start Last Admin Trade Name Freq PRN Reason Stop Dose Admin Dicyclomine HCl 20 mg 01/18/21 23:06 01/18/21 23:12 Bentyl PO 01/18/21 23:07 20 mg ONETIME ONE Administration Hydromorphone HCl 0.5 mg 01/18/21 21:44 01/18/21 21:56 Dilaudid IVPUSH 01/18/21 21:45 0.5 mg ONETIME ONE Administration Hydromorphone HCl 0.25 mg 01/18/21 23:06 01/18/21 23:12 Dilaudid IVPUSH 01/18/21 23:07 0.25 mg ONETIME ONE Administration Hyoscyamine 0.125 mg 01/18/21 21:40 01/18/21 21:56 Hyomax-Sl SL 01/18/21 21:41 0.125 mg ONETIME ONE Administration Hyoscyamine 0.125 mg 01/18/21 21:52 01/18/21 22:08 Hyomax-Sl SL 01/18/21 21:53 0.125 mg ONETIME ONE Administration Sodium Chloride 1,000 mls @ 125 mls/hr 01/18/21 21:45 01/18/21 21:57 Normal Saline IV 125 mls/hr ASDIRECTED BRITTANY Administration Dextrose/Lactated Ringer's 1,000 mls @ 999 mls/hr 01/18/21 23:15 Dextrose 5%-Lactated Ringers IV ASDIRECTED BRITTANY Metoclopramide HCl 10 mg 01/18/21 21:44 01/18/21 21:56 Reglan IVPUSH 01/18/21 21:45 10 mg ONETIME ONE Administration - Radiology Interpretation Free Text/Narrative:: 65-year-old male presents to the ED for evaluation of diffuse right hemiabdominal pain that came on about 2-1/2 hours ago. It precipitated nausea and vomiting of partially digested food which he ate at about 1630 hrs. today. Vomiting did not relieve the pain. He states the pain feels similar to what he experienced when he had pancreatitis several years ago. He was apparently told that he had gallstones at that time but never required a cholecystectomy which I find peculiar. On examination bowel sounds are few and far between. He is guarding right upper quadrant right mid hemiabdomen with a positive Ontiveros sign highly suggestive of biliary colic. Plan Levsin 0.125 mg sublingual now and repeat in 10 minutes. Dilaudid 0.5 mg IV with Reglan 10 mg IV for pain relief. He will have a chest x-ray and 1 view of the abdomen done and an ultrasound of the gallbladder will be ordered. - Re-Assessments/Exams Free Text/Narrative Re-Assessment/Exam: 01/18/21 22:45 ultrasound of the gallbladder has been completed. Liver shows some coarsening of liver echotexture and poor liver through-transmission. This is consistent with a diffuse hepatocellular process most likely steatosis. Gallbladder is not well seen. Possible stones. Common bile duct normal no stones no dilatation. Pancreas visualized and is unremarkable. Right kidney normal in parenchymal thickness and echogenicity no mass no stone and no hydronephrosis. Left kidney shows a 3.3 x 2 cm nodule left kidney whose differential diagnosis is: Of Reji solid mass and cyst. No ascites is visible in the abdomen. 01/18/21 22:49 Hematology reveals a normal white count is 7.32. Auto differential shows 60% neutrophils. Hemoglobin is 15.5 with a hematocrit of 46.9. MCV is 93.6 slightly elevated. Platelet count normal at 224,000. Chemistry shows a sodium of 143 and a potassium of 4.4. Chloride is 102 with a bicarb of 25. Anion gap is elevated at 20.4. BUN is 21 with a creatinine of 1.2. GFR is greater than 60. Glucose is 120 with a calcium of 9.2 magnesium is 1.9 total bilirubin is 0.9 with a GGT slightly elevated 127. Normal our lab is up to 85. AST is 41 and ALT is 36. Alk phosphatase slightly elevated at 130. C-reactive protein less than 0.2 total protein 7.8 with an albumin fraction of 3.5 globulin is 4.3 amylase 259. 01/18/21 23:08 Chest x-ray done portably is within normal limits. Lung parenchyma is clear. No pleural effusions no pneumothorax. Cardiac silhouette also appears to be within normal limits. The KUB reveals increased stool in portions of the cecum with entrapped gas particularly up underneath the liver at the hepatic flexure. There is scattered stuck of stool across the transverse colon but most of the descending colon and rectal vault are empty. There is 1 mildly dilated loop of small bowel in the left upper quadrant of the abdomen which is nonspecific. On reexamination however the patient is acutely tender to deep palpation right upper quadrant of the abdomen compatible with acute cholecystitis. Will repeat Dilaudid 0.25 mg IV since he was very sensitive to the 0.5 mg dose. Bentyl 20 mg by mouth. Patient has a hard time sitting up due to the severity of the abdominal pain suggesting developing peritonitis. He is also quite dry with a anion gap of 20. IV will be changed to D5 Ringer's lactate at open. She will be staying in the ED probably most of tonight to make sure this right upper quadrant abdominal pain settles completely otherwise surgical consultation in the morning would be in order. Free Text/Narrative Re-Assessment/Exam: 01/19/21 01:00 patient has been able to fall asleep for period of time. On reexamination he still remains mildly tender right upper quadrant of the abdomen with a minimally positive Ontiveros sign. He rates the pain is a 2 out of 10. At this time he prefers to try things at home. I will discharge him with Bentyl tablets 20 mg strength to be used 1 every 6 hours as necessary for pain relief. Advised clear fluid to carbohydrate diet for the next 48 hours. Follow-up if he develops any fever chills or increased right upper quadrant abdominal pain. At some point time he needs a HIDA scan performed and then follow-up with the surgeon. Departure - Departure Time of Disposition: 01:01 Disposition: Home, Self-Care 01 Condition: Fair Clinical Impression: Right upper quadrant abdominal pain with positive Ontiveros's Sign, Biliary colic - Discharge Information *PRESCRIPTION DRUG MONITORING PROGRAM REVIEWED*: Not Applicable *COPY OF PRESCRIPTION DRUG MONITORING REPORT IN PATIENT [place]NET[place]: Not Applicable Instructions: Biliary Colic, Adult Referrals: Ismael Esteban Jr, MD [Primary Care Provider] - Forms: ED Department Discharge Additional Instructions: Evaluation the emergency room tonight in regards to development of severe right upper quadrant abdominal pain with associated with development of nausea and vomiting about 3 hours after eating. This presented similar to the pain you have experienced in 2018 with development of severe pancreatitis. On today's examination it appears the gallbladder is tender to touch. An ultrasound could not confirm any stones within the gallbladder or any significant gallbladder wall thickening. Sometimes sludge in the gallbladder will precipitate a gallbladder attack similar to what she experienced tonight. Lab test did not reveal any evidence of pancreatitis. You were treated with IV fluids to provide rehydration and pain medication and nausea medicine to alleviate discomfort. You are also given Bentyl 20 mg tab by mouth which seemed to help the most. You may use this medication by mouth every 6 hours as needed for relief of recurrent similar type pain. Next tablet would be due around 4:30 this morning. Need to return to medical care if you develop fever chills nausea vomiting or worsening right upper quadrant abdominal pain. Sepsis Event Note (ED) - Evaluation Sepsis Screening Result: No Definite Risk
[2021-01-18] MEDS ORDERED: Dicyclomine 10 MG Cap PO ONE (23:06)
[2021-01-18] MEDS ORDERED: Dextrose 5%-Lactated Ringers 1,000 ML IV SCH (23:15)
--- NOTE | 2021-01-19 07:15 | CR ---
Chest: PA view of the chest was obtained. Comparison: Prior chest x-ray of 06/26/18 Heart size is normal. Tortuous thoracic aorta is seen. Lungs are clear with no acute parenchymal change. No acute osseous abnormality is appreciated. Impression: 1. Stable findings as noted above. 2. Nothing acute seen on frontal chest x-ray. Diagnostic code #2
--- NOTE | 2021-01-19 07:20 | CR ---
Abdomen: Supine view of the abdomen was obtained. Comparison: Prior right upper quadrant abdominal ultrasound of 01/18/21 is available, no prior abdominal x-ray is available. Catheter is noted within the right upper abdomen presumably representing a drainage catheter from the pancreatic duct to the bowel. Bowel gas pattern is normal. No abnormal calcifications or soft tissue abnormality is seen. Bony structures showed nothing acute. Impression: 1. Catheter within the upper abdomen. 2. Nothing acute is seen on supine abdominal x-ray. Diagnostic code #2
--- NOTE | 2021-01-19 07:21 | US ---
Limited abdominal ultrasound: Multiple real-time images of the right upper abdomen were obtained. Comparison: Previous CT abdomen and pelvis exam of 08/18/18. Technologist's note: Very difficult scan due to bowel, gas and body habitus Liver shows no discrete abnormality. Gallbladder shows no definite shadowing gallstones. Common bile duct and common hepatic duct are not visualized. Pancreas is poorly seen. Right kidney shows no hydronephrosis and has a length of approximately 11.0 cm. Main portal vein shows normal hepatopedal flow. Impression: 1. No definite abnormality is appreciated on right upper quadrant abdominal ultrasound. If patient remains symptomatic, recommend repeat study in 24-48 hours. Diagnostic code #2 I mostly agree with preliminary report from [facility], finalized on 01/18/21, 11:42 PM ACUTE CARE REGISTERED NURSE
== END 2021-01-19 01:18 | disposition home or self-care (01) ==
LOC: JD.ED 21:15
DX: K80.50 Calculus of bile duct without cholangitis or cholecystitis without obstruction (principal); Z86.73 Personal history of transient ischemic attack (TIA), and cerebral infarction without residual deficits; Z87.891 Personal history of nicotine dependence
CPT/HCPCS: 36415; 71045; 74018; 76705; 80053; 82150; 82977; 83735; 85025; 86140; 96374; 96375; 96376; 99284; A9270; J1170; J2765; J7030

== ENCOUNTER 2022-12-21 16:38 | Emergency (ER) | payer MEDICARE ==
[2022-12-21] MEDS ORDERED: Ondansetron 4 MG/2 ML SDV IVPUSH ONE (17:15)
[2022-12-21] MEDS ORDERED: Sodium Chloride 0.9% 10 ML Syringe FLUSH PRN (17:15)
[2022-12-21] MEDS ORDERED: Sodium Chloride 0.9% 1,000 ML IV STA (17:15)
[2022-12-21] MEDS ORDERED: HYDROmorphone 0.5 MG/0.5 ML Syringe IVPUSH ONE (17:15)
[2022-12-21] MEDS ORDERED: Iopamidol 755 Mg/ML 100 ML Bottle IVPUSH ONE (18:26)
[2022-12-21] MEDS ORDERED: Sodium Chloride 0.9% 10 ML Syringe FLUSH ONE (18:26)
[2022-12-21] MEDS ORDERED: Levofloxacin 750 MG Tab PO ONE (19:17)
[2022-12-21] MEDS ORDERED: metroNIDAZOLE 500 MG Tab PO ONE (19:18)
[2022-12-21 19:55] VITALS: BP 126/79; PULSE 52
== END 2022-12-21 19:55 | disposition home or self-care (01) ==
LOC: JD.ED 16:38
DX: K57.32 Diverticulitis of large intestine without perforation or abscess without bleeding (principal); Z86.73 Personal history of transient ischemic attack (TIA), and cerebral infarction without residual deficits
CPT/HCPCS: 36415; 74177; 80053; 83690; 85025; 86140; 96361; 96374; 96375; 99284; A9270; J1170; J2405; J3490; J7030; Q9967

== ENCOUNTER 2022-12-24 15:38 | Emergency (ER) | payer MEDICARE ==
[2022-12-24 15:59] VITALS: BP 141/74; PULSE 53
[2022-12-24] MEDS ORDERED: Sodium Chloride 0.9% 10 ML Syringe FLUSH PRN (16:32)
[2022-12-24] MEDS ORDERED: Acetaminophen 325 MG Tab PO ONE (16:32)
[2022-12-24] MEDS ORDERED: Sodium Chloride 0.9% 1,000 ML IV SCH (16:45)
[2022-12-24 17:04] LABS: CORONAVIRUS COVID-19 NAA POSITIVE (NEGATIVE)
[2022-12-24] MEDS ORDERED: HYDROmorphone 0.5 MG/0.5 ML Syringe IVPUSH ONE (17:54)
== END 2022-12-24 19:42 | disposition home or self-care (01) ==
LOC: JD.ED 15:38
DX: U07.1 COVID-19 (principal); R51.9 Headache, unspecified; M79.10 Myalgia, unspecified site; Z79.899 Other long term (current) drug therapy; Z86.73 Personal history of transient ischemic attack (TIA), and cerebral infarction without residual deficits
CPT/HCPCS: 0241U; 36415; 71045; 80053; 85025; 86140; 96361; 96374; 99283; A9270; J1170; J3490; J7030; 99284

== ENCOUNTER 2022-12-27 14:22 | Emergency (ER) | payer MEDICARE ==
[2022-12-27 14:39] VITALS: BP 149/88; PULSE 65
[2022-12-27] MEDS ORDERED: Ondansetron 4 MG Tab.DIS PO ONE (15:05)
[2022-12-27] MEDS ORDERED: Sodium Chloride 0.9% 10 ML Syringe FLUSH PRN (16:10)
[2022-12-27] MEDS ORDERED: Iopamidol 755 Mg/ML 100 ML Bottle IVPUSH ONE (16:10)
[2022-12-27] MEDS ORDERED: Sodium Chloride 0.9% 100 ML IV SCH (16:15)
== END 2022-12-27 17:40 | disposition home or self-care (01) ==
LOC: JD.ED 14:22
DX: U07.1 COVID-19 (principal); Z86.16 Personal history of COVID-19
CPT/HCPCS: 36415; 71045; 71275; 80053; 85025; 85379; 99285; A9270; J3490; Q9967; 99283

== ENCOUNTER 2023-09-20 06:26 | Emergency (ER) | payer MEDICARE ==
[2023-09-20] MEDS ORDERED: Sodium Chloride 0.9% 10 ML Syringe FLUSH PRN (06:42)
[2023-09-20] MEDS ORDERED: Promethazine 25 MG Tab PO ONE (06:42)
[2023-09-20] MEDS ORDERED: Promethazine 25 MG/ML SDV IM ONE (06:50)
[2023-09-20 06:56] LABS: BASOPHILS ABSOLUTE AUTO 0.1 K/mm3 (0.0-0.2); BASOPHILS PERCENT AUTO 1.5 % (0.0-1.0); EOSINOPHILS ABSOLUTE AUTO 0.1 K/mm3 (0.0-0.4); EOSINOPHILS PERCENT AUTO 0.7 % (0.0-6.0); HEMATOCRIT 46.3 % (42.0-52.0); HEMOGLOBIN 15.7 gm/dl (14.0-18.0); IMMATURE GRAN ABSOLUTE AUTO 0.04 K/mm3 (0.00-0.05); IMMATURE GRAN PERCENT AUTO 0.6 % (0.0-0.4); LYMPHOCYTES ABSOLUTE AUTO 1.3 K/mm3 (1.0-4.8); LYMPHOCYTES PERCENT AUTO 19.1 % (24.0-44.0); MEAN CORPUSCULAR HEMOGLOBIN 31.8 pg (28.0-32.0); MEAN CORPUSCULAR HGB CONC 33.9 g/dl (32.0-36.0); MEAN CORPUSCULAR VOLUME 93.7 fl (83.0-99.0); MEAN PLATELET VOLUME 9.4 fl (9.4-12.4); MONOCYTES ABSOLUTE AUTO 0.5 K/mm3 (0.0-0.8); MONOCYTES PERCENT AUTO 7.1 % (0.0-8.0); NEUTROPHILS ABSOLUTE AUTO 4.9 K/mm3 (1.8-7.7); PLATELET COUNT,PLT 222 K/mm3 (150-400); RED BLOOD CELL COUNT 4.94 M/mm3 (4.52-5.90); WHITE BLOOD CELL COUNT,WBC 6.87 K/mm3 (3.9-11.3)
[2023-09-20] MEDS ORDERED: Sodium Chloride 0.9% 10 ML Syringe FLUSH ONE (07:08)
[2023-09-20] MEDS ORDERED: Iopamidol 612 MG/ML 100 ML Bottle IVPUSH ONE (07:08)
[2023-09-20 07:20] LABS: A/G RATIO 0.8 (1-2); ALBUMIN 3.5 g/dl (3.4-5.0); ANION GAP 13.6 (5-15); BILIRUBIN TOTAL 1.5 mg/dL (0.2-1.0); BUN/CREATININE RATIO 14.2 (14-18); CALCIUM 9.6 mg/dL (8.5-10.1); CREATININE 1.2 mg/dL (0.7-1.3); EST CRCL DRUG DOSING (CG) 72.33 mL/min; MAGNESIUM 1.7 mg/dL (1.8-2.4); POTASSIUM,K 4.6 mEq/L (3.5-5.1); PROTEIN TOTAL,TP 7.8 g/dl (6.4-8.2)
[2023-09-20] MEDS ORDERED: Meclizine 25 MG Tab PO ONE (07:28)
[2023-09-20] MEDS ORDERED: diphenhydrAMINE 50 MG/ML SDV IVPUSH ONE (07:44)
[2023-09-20] MEDS ORDERED: Ketorolac 30 MG/ML SDV IVPUSH ONE (07:44)
[2023-09-20 11:36] VITALS: BP 119/79; PULSE 56
== END 2023-09-20 11:30 | disposition home or self-care (01) ==
LOC: JD.ED 06:26
DX: H83.03 Labyrinthitis, bilateral (principal); Z86.16 Personal history of COVID-19
CPT/HCPCS: 36415; 70470; 80053; 83735; 85025; 96372; 96374; 96375; 99285; A9270; J1200; J1885; J2550; J3490; Q9967; 99284

== ENCOUNTER 2024-08-07 16:01 | Emergency (ER) | payer MEDICARE | END 2024-08-07 16:20 | LOC: JD.ED 16:01 | DX: Z53.21 Procedure and treatment not carried out due to patient leaving prior to being seen by health care provider (principal) ==